=== PATIENT | male | born 1950 | race Caucasian/White ===

== ENCOUNTER → 2023-12-02 09:10 | Outpatient (REF) | payer MEDICARE, OTHER, SELFPAY | LOC: WOUND 09:10 | PROVIDERS: ATTENDING PHYSICIAN Surgery; REFERRING PHYSICIAN Internal Medicine | DX: I87.312 Chronic venous hypertension (idiopathic) with ulcer of left lower extremity (principal); L97.821 Non-pressure chronic ulcer of other part of left lower leg limited to breakdown of skin; L97.321 Non-pressure chronic ulcer of left ankle limited to breakdown of skin; I87.2 Venous insufficiency (chronic) (peripheral); I73.9 Peripheral vascular disease, unspecified; N18.32 Chronic kidney disease, stage 3b | CPT/HCPCS: 99204 ==

== ENCOUNTER → 2023-12-05 07:05 | Outpatient (REF) | payer MEDICARE, OTHER, SELFPAY ==
[2023-12-05 08:40] LABS: Albumin 3.1 g/dl (3.5-5.0); Blood Urea Nitrogen 28 mg/dl (9-20); Calcium 8.8 mg/dl (8.4-10.2); Carbon Dioxide 20 mmol/L (22-30); Chloride 107 mmol/L (98-107); Glucose 83 mg/dl (70-99); Phosphorus 4.7 mg/dl (2.5-4.5); Potassium 4.8 mmol/L (3.5-5.1); Sodium 137 mmol/L (135-145); eGFR 49.47
== END ==
LOC: REG 07:05
PROVIDERS: ATTENDING PHYSICIAN Internal Medicine
DX: N18.9 Chronic kidney disease, unspecified (principal)
CPT/HCPCS: 36415; 80069

== ENCOUNTER → 2023-12-09 13:35 | Outpatient (REF) | payer MEDICARE, OTHER, SELFPAY | LOC: WOUND 13:35 | PROVIDERS: ATTENDING PHYSICIAN Surgery; REFERRING PHYSICIAN Internal Medicine | DX: I87.312 Chronic venous hypertension (idiopathic) with ulcer of left lower extremity (principal); L97.821 Non-pressure chronic ulcer of other part of left lower leg limited to breakdown of skin; L97.321 Non-pressure chronic ulcer of left ankle limited to breakdown of skin; L03.116 Cellulitis of left lower limb; I87.2 Venous insufficiency (chronic) (peripheral); I73.9 Peripheral vascular disease, unspecified; N18.32 Chronic kidney disease, stage 3b; I12.9 Hypertensive chronic kidney disease with stage 1 through stage 4 chronic kidney disease, or unspecified chronic kidney disease | CPT/HCPCS: 99213 ==

== ENCOUNTER → 2023-12-15 14:01 | Outpatient (REF) | payer MEDICARE, OTHER, SELFPAY | LOC: WOUND 14:01 | PROVIDERS: ATTENDING PHYSICIAN Surgery; FAMILY PHYSICIAN Internal Medicine | DX: I87.312 Chronic venous hypertension (idiopathic) with ulcer of left lower extremity (principal); L97.821 Non-pressure chronic ulcer of other part of left lower leg limited to breakdown of skin; L97.321 Non-pressure chronic ulcer of left ankle limited to breakdown of skin; L03.116 Cellulitis of left lower limb; I87.2 Venous insufficiency (chronic) (peripheral); I73.9 Peripheral vascular disease, unspecified; N18.32 Chronic kidney disease, stage 3b | CPT/HCPCS: 99212; 99213 ==

== ENCOUNTER → 2023-12-22 10:30 | Outpatient (REF) | payer MEDICARE, OTHER, SELFPAY | LOC: WOUND 10:30 | PROVIDERS: ATTENDING PHYSICIAN Surgery; FAMILY PHYSICIAN Internal Medicine | DX: I87.312 Chronic venous hypertension (idiopathic) with ulcer of left lower extremity (principal); L97.821 Non-pressure chronic ulcer of other part of left lower leg limited to breakdown of skin; L97.321 Non-pressure chronic ulcer of left ankle limited to breakdown of skin; L03.116 Cellulitis of left lower limb; I87.2 Venous insufficiency (chronic) (peripheral); I73.9 Peripheral vascular disease, unspecified; N18.32 Chronic kidney disease, stage 3b | CPT/HCPCS: 99212 ==

== ENCOUNTER → 2024-01-25 12:53 | Outpatient (REF) | payer MEDICARE, OTHER, SELFPAY | LOC: RAD 12:53 | PROVIDERS: ATTENDING PHYSICIAN Surgery; FAMILY PHYSICIAN Internal Medicine | DX: I87.312 Chronic venous hypertension (idiopathic) with ulcer of left lower extremity (principal); I87.2 Venous insufficiency (chronic) (peripheral); I73.9 Peripheral vascular disease, unspecified | CPT/HCPCS: 93922; 93925; 93970 ==

== ENCOUNTER 2024-02-08 15:41 | Emergency (ER) | payer MEDICARE, OTHER, SELFPAY ==
[2024-02-08 15:49] VITALS: BP 113/73
--- NOTE | 2024-02-08 16:07 | ED.GENMED ---
History of Present Illness
General
Chief Complaint: Urinary Symptoms
Source: patient
Exam Limitations: none
Nursing documentation reviewed up to this point in time: agreed with
Travel History
Have you had any contact with someone who has COVID-19?: No
Do you have any symptoms of coronavirus? Fever > 100 degrees, chills, cough, shortness of breath, sore throat, loss of taste or smell, muscle aches, or headache?: No
History of Present Illness
History of Present Illness:
73 yo male w h/o kidney stones, HTN, GERD, Stage 3 CKD, appendectomy, hernia repair, cholecystectomy, choledochoduodenostomy presents stating at 9 a.m. he noted mild burning in tip of penis with urination, has gotten progressively worse throughout
the day, now 8/10 with intermittent spasms. Denies f/c/n/v/d/c. States it feels exactly like his previous kidney stones.
Past History
Past History
ED Past Medical History: GERD, HTN, NIDDM, Other (Sleep apnea) and Other (Hyperaldosterone)
ED Past Surgical History: Cholecystectomy and Orthopedic
Social History
Tobacco: Non-smoker
Alcohol: None
Drug: None
Personal:
Living: with family
Employment: Retired
Review of Systems
Review of Systems
Allergies reviewed?: Yes
All Other Systems: ROS reviewed and negative except as documented in HPI and ROS
Constitutional: Denies fever or chills
Respiratory: Denies trouble breathing
Cardiac: Denies chest pain
ABD/GI: Reports abdominal pain (suprapubic area); Denies nausea or vomiting
: Reports dysuria, difficulty voiding and dark urine; Denies flank pain
Musculoskeletal: Reports other (exacerbation of chronic right shoulder pain, took Prednisone yesterday and today)
Skin: Reports no symptoms
Neurological: Reports no symptoms
Phy Exam
Physical Exam
Physical Exam:
GENERAL: No acute distress. A&Ox3.
CONSTITUTIONAL: Afebrile.
EYES: clear, conjunctivae normal
ENMT: moist mucus membranes
RESPIRATORY: Regular respirations, nonlabored, lungs clear.
CARDIOVASCULAR: Regular rate and rhythm, no murmurs, no rubs.
GI: Obese, Soft, suprapubic tenderness, normal BS
MUSCULOSKELETAL: Moves with ease. Well perfused.
SKIN: Warm, dry, pink
PSYCH: Normal mood and affect. Well kept, interactive and appropriate
NEUROLOGIC: Awake, alert and oriented. No focal neurological deficits
Course
Orders/Labs/Results
Orders:
Orders
02/08/24 15:59
Urinalysis Reflex To Culture Urgent
Date Specimen was Collected: 02/08/24
Time Specimen was Collected: 15:53
Urine Microscopic Reflex Cult Urgent
02/08/24 16:05
HYDROmorphone [Dilaudid] 1 mg IV NOW STA
Ondansetron Injectable [Zofran] 4 mg IV NOW STA
02/08/24 16:07
0.9% Sodium Chloride 1000 ml [Nss] 1,000 ml IV BOLUS
02/08/24 16:20
Complete Blood Count/With Diff Urgent
Comprehensive Metabolic Panel Urgent
02/08/24 17:07
CT Abd/pel Without Iv Or Oral Urgent
Comment:
Reason For Exam: suprapubic and penile pain hx stones
02/08/24 18:41
HYDROmorphone [Dilaudid] 1 mg IV NOW STA
02/08/24 20:07
Ketorolac [Toradol] 15 mg IV NOW STA
02/08/24 21:03
Tramadol HCl [Ultram] 50 mg PO NOW STA
Abnormal Lab Results
02/08/24 02/08/24
15:59 16:20
RBC 3.58 L 10^6/uL
(4.70-6.10)
Hgb 10.9 L g/dL
(13.0-18.0)
Hct 35.1 L %
(39.0-52.0)
MCV 98.0 H fL
(80.0-94.0)
MCHC 31.1 L g/dL
(33.0-37.0)
RDW 15.3 H %
(11.5-14.5)
MPV 10.9 H fL
(7.4-10.4)
Absolute Lymphs (auto) 0.6 L 10^3/uL
(1.2-3.4)
Neutrophils % 88.8 H %
(42.2-75.2)
Lymphocytes % 9.0 L %
(20.5-51.1)
BUN 40 H mg/dl
(9-20)
Creatinine 1.9 H mg/dL
(0.7-1.3)
Glucose 133 H mg/dl
(70-99)
Calcium 10.6 H mg/dl
(8.4-10.2)
Ur Occult Blood Reflex 4+ A
(Negative)
Leukocyte Esterase Rfl Trace A
(Negative)
Urine RBC 70-80 A /HPF
(0-2)
Urine Glucose 2+ A
(Negative)
02/08/24 16:20
02/08/24 16:20
Vital Signs
Initial and Last Documented VS:
Initial Vital Signs
Temp Pulse Resp BP Pulse Ox
98.3 F 76 16 113/73 99
02/08/24 15:49 02/08/24 15:49 02/08/24 15:49 02/08/24 15:49 02/08/24 15:49
Last Documented Vital Signs
Temp Pulse Resp BP Pulse Ox
98.3 F 58 18 128/82 99
02/08/24 15:49 02/08/24 21:14 02/08/24 21:14 02/08/24 21:14 02/08/24 21:14
MDM/Problems Addressed
Differential Diagnosis Includes:
ureteral stone, UTI
MDM/Problems Addressed:
73 yo male w h/o kidney stones, HTN, GERD, Stage 3 CKD, appendectomy, hernia repair, cholecystectomy, choledochoduodenostomy presents stating at 9 a.m. he noted mild burning in tip of penis with urination, has gotten progressively worse throughout
the day, now 8/10 with intermittent spasms. Denies f/c/n/v/d/c. States it feels exactly like his previous kidney stones.
Afebrile
02/08/2024 1708 PM
CBC: No clinically significant abnormality, at his baseline anemia
CMP: At his baseline CKD, IV fluids infusing for BUN of 40
U/A: no sign of infection
Good relief of pain after Dilaudid
02/08/2024 1830 PM
Patient requesting more pain medication
Radiology report read:
There is a 5 mm calcification at the right UVJ, with moderate hydronephrosis and moderate hydroureter.
Innumerable intrarenal renal calcifications bilaterally. No other change in the noncontrast exam of the solid organs.
Diverticulosis. Moderate stool in the colon. No free air or free fluid.
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
02/08/2024 1958 PM
Patient just urinated a 5 mm black stone. He still feels like he has the urgency to urinate but does not feel like he can urinate
Bladder scan showing minimal amount of urine in his bladder
States pain is 6/10 from 10 on arrival.
After pain medication x 3, pt still very uncomfortable, possibly passing another stone?
Plan: Admit for pain management, Urology consult
Hospitalist notifed of admission
02/08/2024 2108 PM
Pt just urinated and passed a small clot and bloody urine and feels 'so much better.' Pain now 01/07. Wants to go home.
Admission cancelled
Rx for Tramadol sent to his pharmacy. He is already taking Tamsulosin.
*Critical Care Note
Total Time (30-74mins, 75-104mins- exclusive of procedures): Not Applicable
ED Attending Note
-
Portions of this chart may have been created with voice recognition software.� Occasional wrong word or��sound alike� substitutions may have occurred due to the inherent limitations of voice recognition software.
Discharge Plan
Departure
Patient Disposition: Home (Routine Discharge)
Date of Disposition: 02/08/24
Time of Disposition: 20:42
Patient with high blood pressure during this ER visit?: No
Condition: Good
Discharge Problem:
Calculus of distal right ureter, Kidney stone
Instructions: Kidney stones in adults
Prescriptions:
New
tramadol 50 mg tablet
50 mg PO Q8H PRN (Reason: Pain) Qty: 10 0RF
No Action
allopurinol 300 MG tablet
300 mg PO QPM
multivitamin Tablet
1 tab PO TID
zinc acetate 50 mg (zinc) Capsule
50 mg PO QPM
aspirin 81 mg Tablet,Delayed Release (Dr/Ec)
81 mg PO QPM
tamsulosin 0.4 mg capsule
0.4 mg PO QPM
calcitriol 0.5 mcg capsule
3 mcg PO BID
Patient Comments:
10/21/2023: Pt states he takes 6 tabs BID 0.5mcg x 6 tabs = 3mcg
ergocalciferol (vitamin D2) 1,250 mcg (50,000 unit) capsule
7,500 mcg PO BID
Patient Comments:
10/21/2023: 1250mcg x 6 tabs = 7500mcg
coenzyme Q10 [Co Q-10] 100 mg Capsule
100 mg PO QPM
Prolia 60 mg/mL Syringe
60 mg SC [id number]
dapagliflozin propanediol [Farxiga] 10 mg tablet
10 mg PO DAILY
Prostate Factor
1 tab PO QPM
prednisone 10 mg tablet
10 mg PO .SEE BELOW
Patient Comments:
02/08/2024: Pt is self tapering his prednisone. 30mg today, 20mg x 2 days, 10mg x 2 days. it prescribed as 10mg PO Daily PRN gout
magnesium 250 mg Tablet
250 mg PO QPM
fluticasone propionate 50 mcg/actuation spray,suspension
1 spray INTRANASAL DAILY PRN (Reason: nasal congestion)
eplerenone [Inspra] 25 mg Tablet
25 mg PO QPM
potassium citrate 99 mg Capsule
99 mg PO MEALS
Referrals:
Matthew Hardy Jr., MD [Active] - Call in 1-3 days for appt
Ryan Gonzalez MD [Family Provider] -
Activity Restrictions/Additional Instructions:
As we discussed, I sent a prescription to your pharmacy for Tramadol to use if needed for pain
Call Dr. Hardy's office tomorrow and ask when you should be seen for follow up. Inform them of your urine if it is still bloody.
Return here for worsening pain, inability to urinate, fever, vomiting or feeling sicker in any way.
Interventions
Interventions:
*Risk Screen - Suicide Last Done: 02/08/24 16:24
*General Assessment Last Done: 02/08/24 16:24
*Neglect/Abuse Screening Last Done: 02/08/24 16:24
ED- Fall Risk Assessment Last Done: 02/08/24 21:18
*ED COVID-19 Vaccine History Last Done: 02/08/24 16:24
*Nursing Disposition Last Done: 02/08/24 21:18
ED-Male Genitourinary Assessment Last Done: 02/08/24 16:22
Discharge Date and Time
Discharge Date/Time: 02/08/24 21:20
Print Language: ANGUILLAN
[2024-02-08] MEDS: DILAUDID 1 MG IV ×2 (16:15→18:52)
[2024-02-08] MEDS: NSS 1000 IV (16:15)
[2024-02-08] MEDS: ZOFRAN 4 MG IV (16:15)
[2024-02-08 16:16] LABS: Urine Albumin Trace (Neg - Trace); Urine Bilirubin Negative (Negative); Urine Character Clear (Clear); Urine Color Yellow; Urine Glucose 2+ (Negative); Urine Ketone Negative (Negative); Urine Leukocyte Trace (Negative); Urine Nitrite Negative (Negative); Urine Occult Blood 4+ (Negative); Urine Urobilinogen Negative (Neg - 1+)
[2024-02-08 16:26] LABS: Urine Amorphous Seen; Urine Mucus Few; Urine Red Blood Cell 70-80 /HPF (0-2); Urine Squamous Cell 0-2 /LPF (Few)
[2024-02-08 16:41] LABS: % Basophils 0.1 % (0-2); % Immature Granulocytes 0.3 % (0-0.5); % Monocytes 1.8 % (1.7-9.3); % Neutrophils 88.8 % (42.2-75.2); Absolute Lymphocytes 0.6 10^3/uL (1.2-3.4); Absolute Monocytes 0.1 10^3/uL (0.1-0.6); Absolute Neutrophils 6.3 10^3/uL (1.4-6.5); Hematocrit 35.1 % (39.0-52.0); Hemoglobin 10.9 g/dL (13.0-18.0); Mean Corp Hgb Conc. 31.1 g/dL (33.0-37.0); Mean Corpuscular Hgb 30.4 pg (27.0-31.0); Mean Platelet Volume 10.9 fL (7.4-10.4); Nucleated Red Blood Cells % 0 % (-); Platelet Count 278 10^3/uL (130-400); Red Blood Cell Count 3.58 10^6/uL (4.70-6.10); Red Cell Dist. Width 15.3 % (11.5-14.5); White Blood Cell Count 7.1 10^3/uL (4.8-10.8)
[2024-02-08 16:58] LABS: ALT (SGPT) 25 U/L (0-50); AST (SGOT) 24 U/L (17-59); Albumin 4.5 g/dl (3.5-5.0); Alkaline Phosphatase 67 U/L (38-126); Blood Urea Nitrogen 40 mg/dl (9-20); Calcium 10.6 mg/dl (8.4-10.2); Carbon Dioxide 22 mmol/L (22-30); Chloride 102 mmol/L (98-107); Glucose 133 mg/dl (70-99); Potassium 4.4 mmol/L (3.5-5.1); Sodium 138 mmol/L (135-145); Total Bilirubin 0.5 mg/dl (0.2-1.3); Total Protein 7.4 g/dl (6.3-8.2); eGFR 37.25
[2024-02-08] MEDS: TORADOL 15 MG IV (20:16)
[2024-02-08] MEDS: ULTRAM 50 MG PO (21:08)
[2024-02-08 21:14] VITALS: BP 128/82
== END 2024-02-08 21:20 | disposition home or self-care (01) ==
LOC: EMR 15:41
PROVIDERS: EMERGENCY PHYSICIAN Emergency Medicine; FAMILY PHYSICIAN Internal Medicine
DX: N13.2 Hydronephrosis with renal and ureteral calculous obstruction (principal); I12.9 Hypertensive chronic kidney disease with stage 1 through stage 4 chronic kidney disease, or unspecified chronic kidney disease; N18.4 Chronic kidney disease, stage 4 (severe); K21.9 Gastro-esophageal reflux disease without esophagitis; Z87.442 Personal history of urinary calculi
CPT/HCPCS: 99284; 96374; 96375 ×2; 96361; 96376; 74176; 80053; 81003; 81015; 85025

== ENCOUNTER → 2024-02-13 18:57 | Outpatient (REF) | payer MEDICARE, OTHER, SELFPAY ==
[2024-02-18 09:22] LABS: Stone Analysis Mass 13 mg
== END ==
LOC: CLAB 18:57
PROVIDERS: ATTENDING PHYSICIAN Specialist
DX: N20.0 Calculus of kidney (principal)
CPT/HCPCS: 82365

== ENCOUNTER → 2024-04-11 06:54 | Outpatient (REF) | payer MEDICARE, OTHER, SELFPAY ==
[2024-04-11 08:19] LABS: % Basophils 0.5 % (0-2); % Eosinophils 2.2 % (0-6); % Immature Granulocytes 0.2 % (0-0.5); % Lymphocytes 27.9 % (20.5-51.1); % Neutrophils 59.2 % (42.2-75.2); Absolute Eosinophils 0.1 10^3/uL (0-0.7); Absolute Lymphocytes 1.7 10^3/uL (1.2-3.4); Absolute Monocytes 0.6 10^3/uL (0.1-0.6); Absolute Neutrophils 3.5 10^3/uL (1.4-6.5); Hematocrit 31.3 % (39.0-52.0); Mean Corp Hgb Conc. 31.9 g/dL (33.0-37.0); Mean Corpuscular Volume 103.3 fL (80.0-94.0); Mean Platelet Volume 10.6 fL (7.4-10.4); Nucleated Red Blood Cells % 0 % (-); Platelet Count 203 10^3/uL (130-400); Red Blood Cell Count 3.03 10^6/uL (4.70-6.10); Red Cell Dist. Width 14.6 % (11.5-14.5); White Blood Cell Count 5.9 10^3/uL (4.8-10.8)
[2024-04-11 08:33] LABS: Blood Urea Nitrogen 32 mg/dl (9-20); Calcium 10.8 mg/dl (8.4-10.2); Carbon Dioxide 25 mmol/L (22-30); Chloride 99 mmol/L (98-107); Glucose 88 mg/dl (70-99); HDL Cholesterol 35 mg/dl; Iron 53 ug/dl (49-181); LDL Cholesterol, Calculated 47 mg/dl; Potassium 4.3 mmol/L (3.5-5.1); Sodium 134 mmol/L (135-145); Total Cholesterol 117 mg/dl (50-199); Triglyceride 178 mg/dl (10-149); Very Low Density Lipoprotein 35 mg/dl (0-30); eGFR 39.75
[2024-04-11 08:42] LABS: Percent Saturation 20 % (20-50); Total Iron Binding Capacity 258 ug/dl (261-462)
[2024-04-11 10:20] LABS: Vitamin D, 25-OH*** 42.8 ng/mL (30-80)
[2024-04-11 11:09] LABS: Vitamin B12 > 1000 pg/ml (239-931)
[2024-04-11 17:24] LABS: Folate > 20.0 ng/ml (2.76-20)
[2024-04-12 14:42] LABS: Intact PTH 4.9 pg/ml (13.6-85.8)
[2024-04-13 13:48] LABS: Zinc 77.2 ug/dL (60.0-120.0)
[2024-04-13 22:06] LABS: Gamma-Tocopherol <0.2 mg/L (0.0-6.0); Retinyl Palmitate <0.02 mg/L (0.00-0.10); Vitamin A (Retinol) 0.55 mg/L (0.30-1.20); Xitamin A Interpretation Normal
== END ==
LOC: REG 06:54
PROVIDERS: ATTENDING PHYSICIAN Nurse Practitioner Acute Care; FAMILY PHYSICIAN Internal Medicine; OTHER PHYSICIAN Nurse Practitioner; REFERRING PHYSICIAN Specialist
DX: N18.30 Chronic kidney disease, stage 3 unspecified (principal); N20.0 Calculus of kidney; N25.81 Secondary hyperparathyroidism of renal origin; D50.9 Iron deficiency anemia, unspecified; D63.1 Anemia in chronic kidney disease; E64.8 Sequelae of other nutritional deficiencies; E53.8 Deficiency of other specified B group vitamins; E50.9 Vitamin A deficiency, unspecified; I15.9 Secondary hypertension, unspecified; D50.8 Other iron deficiency anemias; K90.49 Malabsorption due to intolerance, not elsewhere classified; M81.0 Age-related osteoporosis without current pathological fracture; N18.32 Chronic kidney disease, stage 3b; E55.9 Vitamin D deficiency, unspecified
CPT/HCPCS: 36415; 80048; 80061; 82306; 82607; 82728; 82746; 83540; 83550; 83735; 83970; 84100; 84425; 84446; 84590; 84630; 85025

== ENCOUNTER → 2024-05-23 06:37 | Outpatient (REF) | payer MEDICARE, OTHER, SELFPAY | LOC: REG 06:37 | PROVIDERS: ATTENDING PHYSICIAN Physician Assistant; FAMILY PHYSICIAN Internal Medicine | DX: R19.7 Diarrhea, unspecified (principal); K90.9 Intestinal malabsorption, unspecified | CPT/HCPCS: 36415; 87045; 87046; 87177; 87209; 87324; 87328; 87329; 87427; 87449 ==

== ENCOUNTER → 2024-05-23 07:26 | Outpatient (REF) | payer MEDICARE, OTHER, SELFPAY | LOC: MRI 07:26 | PROVIDERS: ATTENDING PHYSICIAN Orthopaedic Surgery Hand Surgery; FAMILY PHYSICIAN Internal Medicine | DX: M75.42 Impingement syndrome of left shoulder (principal); S46.012A Strain of muscle(s) and tendon(s) of the rotator cuff of left shoulder, initial encounter | CPT/HCPCS: 73223; A9575 ==

== ENCOUNTER → 2024-06-18 09:06 | Outpatient (REF) | payer MEDICARE, OTHER, SELFPAY ==
[2024-06-18 10:06] LABS: Ionized Calcium 1.09 mMOL/L (1.15-1.33)
[2024-06-18 11:05] LABS: Vitamin D, 25-OH*** 42.1 ng/mL (30-80)
[2024-06-18 11:10] LABS: Calcium 8.2 mg/dl (8.4-10.2); Iron 26 ug/dl (49-181); Phosphorus 3.6 mg/dl (2.5-4.5)
[2024-06-18 11:18] LABS: Percent Saturation 12 % (20-50); Total Iron Binding Capacity 202 ug/dl (261-462)
[2024-06-18 11:25] LABS: Urine Protein 27 mg/dl
[2024-06-18 11:47] LABS: Protein/creatinine Ratio 0.6
[2024-06-18 12:14] LABS: Ferritin 85.9 ng/ml (17.9-464.0)
[2024-06-18 12:46] LABS: Folate 14.7 ng/ml (2.76-20); Vitamin B12 > 1000 pg/ml (239-931)
== END ==
LOC: REG 09:06
PROVIDERS: ATTENDING PHYSICIAN Nurse Practitioner Acute Care; FAMILY PHYSICIAN Internal Medicine; OTHER PHYSICIAN Internal Medicine Endocrinology, Diabetes & Metabolism; OTHER PHYSICIAN Specialist
DX: D50.9 Iron deficiency anemia, unspecified (principal); D63.1 Anemia in chronic kidney disease; E64.8 Sequelae of other nutritional deficiencies; E53.8 Deficiency of other specified B group vitamins; N18.32 Chronic kidney disease, stage 3b; M81.0 Age-related osteoporosis without current pathological fracture; E55.9 Vitamin D deficiency, unspecified
CPT/HCPCS: 36415; 82306; 82330; 82570; 82607; 82728; 82746; 83540; 83550; 83970; 84100; 84156

== ENCOUNTER → 2024-07-05 06:28 | Day surgery (SDC) | payer MEDICARE, OTHER, SELFPAY ==
[2024-06-18 09:53] VITALS: BMI 31.5
[2024-06-18 10:20] LABS: Hematocrit 30.2 % (39.0-52.0); Hemoglobin 9.7 g/dL (13.0-18.0); Mean Corp Hgb Conc. 32.1 g/dL (33.0-37.0); Mean Corpuscular Hgb 33.1 pg (27.0-31.0); Mean Corpuscular Volume 103.1 fL (80.0-94.0); Mean Platelet Volume 10.8 fL (7.4-10.4); Platelet Count 192 10^3/uL (130-400); Red Blood Cell Count 2.93 10^6/uL (4.70-6.10); Red Cell Dist. Width 15.5 % (11.5-14.5); White Blood Cell Count 5.2 10^3/uL (4.8-10.8)
[2024-06-18 11:18] LABS: ALT (SGPT) 29 U/L (0-50); AST (SGOT) 25 U/L (17-59); Albumin 3.5 g/dl (3.5-5.0); Alkaline Phosphatase 68 U/L (38-126); Blood Urea Nitrogen 25 mg/dl (9-20); Calcium 8.2 mg/dl (8.4-10.2); Carbon Dioxide 19 mmol/L (22-30); Chloride 108 mmol/L (98-107); Estimated Creatinine Clearance 44 ml/min; Glucose 80 mg/dl (70-99); Potassium 4.5 mmol/L (3.5-5.1); Sodium 135 mmol/L (135-145); Total Bilirubin 0.4 mg/dl (0.2-1.3)
[2024-06-18 16:06] LABS: Glycohemoglobin (HgbA1c) 3.8 % (4.0-5.6)
[2024-07-03 13:32] VITALS: BMI 31.5
[2024-07-05] VITALS (14 sets, daily range): BP systolic 79–109; BP diastolic 41–78
[2024-07-05] MEDS: NORMOSOL-R/PLASMALYTE-A 1000 IV (13:25)
[2024-07-05] MEDS: TYLENOL 1000 MG PO (13:59)
[2024-07-05] MEDS: ANCEF 5 IV (19:52)
== END ==
LOC: SDS 06:28
PROVIDERS: ATTENDING PHYSICIAN Orthopaedic Surgery Hand Surgery; FAMILY PHYSICIAN Internal Medicine; OTHER PHYSICIAN Internal Medicine Endocrinology, Diabetes & Metabolism
DX: M19.211 Secondary osteoarthritis, right shoulder (principal)
CPT/HCPCS: 23472; C1776; C1713; 36415; 73020; 80053; 83036; 85027; 86850; 86900; 86901; 87070; 93005

== ENCOUNTER → 2024-07-27 07:54 | Outpatient (REF) | payer MEDICARE, OTHER, SELFPAY | LOC: WOUND 07:54 | PROVIDERS: ATTENDING PHYSICIAN Surgery; FAMILY PHYSICIAN Internal Medicine | DX: L89.159 Pressure ulcer of sacral region, unspecified stage (principal); N18.32 Chronic kidney disease, stage 3b; E83.59 Other disorders of calcium metabolism | CPT/HCPCS: 99213 ==

== ENCOUNTER → 2024-09-17 06:34 | Outpatient (REF) | payer MEDICARE, OTHER, SELFPAY ==
[2024-09-17 07:26] LABS: % Basophils 0.6 % (0-2); % Eosinophils 1.6 % (0-6); % Immature Granulocytes 0.4 % (0-0.5); % Monocytes 11.1 % (1.7-9.3); % Neutrophils 63.3 % (42.2-75.2); Absolute Eosinophils 0.1 10^3/uL (0-0.7); Absolute Lymphocytes 1.6 10^3/uL (1.2-3.4); Absolute Monocytes 0.8 10^3/uL (0.1-0.6); Absolute Neutrophils 4.4 10^3/uL (1.4-6.5); Hematocrit 31.4 % (39.0-52.0); Hemoglobin 9.6 g/dL (13.0-18.0); Mean Corp Hgb Conc. 30.6 g/dL (33.0-37.0); Mean Corpuscular Hgb 31.7 pg (27.0-31.0); Mean Corpuscular Volume 103.6 fL (80.0-94.0); Mean Platelet Volume 10.2 fL (7.4-10.4); Nucleated Red Blood Cells % 0 % (-); Platelet Count 279 10^3/uL (130-400); Red Blood Cell Count 3.03 10^6/uL (4.70-6.10); Red Cell Dist. Width 17.2 % (11.5-14.5); White Blood Cell Count 6.9 10^3/uL (4.8-10.8)
[2024-09-17 07:49] LABS: ALT (SGPT) 35 U/L (0-50); AST (SGOT) 24 U/L (17-59); Albumin 3.7 g/dl (3.5-5.0); Alkaline Phosphatase 75 U/L (38-126); Blood Urea Nitrogen 30 mg/dl (9-20); Calcium 9.5 mg/dl (8.4-10.2); Carbon Dioxide 31 mmol/L (22-30); Chloride 96 mmol/L (98-107); Direct Bilirubin 0.2 mg/dl (0.0-0.4); Glucose 94 mg/dl (70-99); HDL Cholesterol 50 mg/dl; Iron 25 ug/dl (49-181); LDL Cholesterol, Calculated 47 mg/dl; Magnesium 2.3 mg/dl (1.6-2.3); Phosphorus 4.4 mg/dl (2.5-4.5); Potassium 5.4 mmol/L (3.5-5.1); Sodium 136 mmol/L (135-145); Total Bilirubin 0.4 mg/dl (0.2-1.3); Total Cholesterol 125 mg/dl (50-199); Total Protein 6.5 g/dl (6.3-8.2); Triglyceride 142 mg/dl (10-149); Uric Acid 4.7 mg/dl (3.5-8.5); Very Low Density Lipoprotein 28 mg/dl (0-30)
[2024-09-17 08:00] LABS: Percent Saturation 10 % (20-50); Total Iron Binding Capacity 244 ug/dl (261-462)
[2024-09-17 08:03] LABS: Protein/creatinine Ratio 0.9; Urine Protein 19 mg/dl
[2024-09-17 08:07] LABS: Vitamin D, 25-OH*** 30.8 ng/mL (30-80)
[2024-09-17 08:25] LABS: Ferritin 84.2 ng/ml (17.9-464.0)
[2024-09-17 08:56] LABS: Folate > 20.0 ng/ml (2.76-20)
[2024-09-17 10:25] LABS: Vitamin B12 > 1000 pg/ml (239-931)
[2024-09-18 10:18] LABS: Intact PTH 15.5 pg/ml (13.6-85.8)
[2024-09-19 00:30] LABS: Zinc 75.1 ug/dL (60.0-120.0)
[2024-09-19 13:31] LABS: Vitamin B1, Whole Blood 252 nmol/L (70-180)
[2024-09-19 18:34] LABS: Alpha-Tocopherol 6.2 mg/L (5.5-18.0); Gamma-Tocopherol <0.2 mg/L (0.0-6.0); Retinyl Palmitate <0.02 mg/L (0.00-0.10); Vitamin A (Retinol) 0.51 mg/L (0.30-1.20); Xitamin A Interpretation Normal
== END ==
LOC: REG 06:34
PROVIDERS: ATTENDING PHYSICIAN Specialist; FAMILY PHYSICIAN Internal Medicine; OTHER PHYSICIAN Nurse Practitioner; REFERRING PHYSICIAN Internal Medicine Hematology & Oncology
DX: N25.81 Secondary hyperparathyroidism of renal origin (principal); N20.0 Calculus of kidney; I10 Essential (primary) hypertension; D63.1 Anemia in chronic kidney disease; D50.9 Iron deficiency anemia, unspecified; E64.8 Sequelae of other nutritional deficiencies; E53.8 Deficiency of other specified B group vitamins
CPT/HCPCS: 36415; 80053; 80061; 82248; 82306; 82570; 82607; 82728; 82746; 83540; 83550; 83735; 83970; 84100; 84156; 84425; 84446; 84550; 84590; 84630; 85025

== ENCOUNTER 2024-09-18 21:41 | Inpatient (IN) | payer MEDICARE, OTHER, SELFPAY ==
[2024-09-18 17:23] VITALS: BP 152/91
--- NOTE | 2024-09-18 17:40 | ED.GENMED ---
History of Present Illness
General
Chief Complaint: Flank Pain
Source: patient
Exam Limitations: none
Time Seen by Provider: 09/18/24 17:35
Nursing documentation reviewed up to this point in time: agreed with
History of Present Illness
History of Present Illness:
74-year-old male with history of HTN, GERD, kidney stones, stage III kidney disease, anemia iron deficient, presents stating yesterday he noticed a decrease in his urine flow then about 3 hours ago he noticed he was urinating small amounts every 15
to 20 minutes and then developed significant pain in the base of his penis. He presents with 8/10 pain. Denies abdominal or flank pains. Denies N/V. Denies F/C.
Past History
Past History
ED Past Medical History: GERD, HTN, NIDDM, Other (Sleep apnea) and Other (Hyperaldosteronism)
ED Past Surgical History: Appendectomy, Cholecystectomy, Orthopedic and Urological (multiple renal calculi extreactions)
Social History
Tobacco: Non-smoker
Alcohol: None
Drug: None
Personal:
Living: with family
Employment: Retired
Review of Systems
Review of Systems
Allergies reviewed?: Yes
All Other Systems: ROS reviewed and negative except as documented in HPI and ROS
Constitutional: Denies fever or chills
Respiratory: Denies trouble breathing
Cardiac: Denies chest pain
ABD/GI: Denies abdominal pain, nausea, vomiting or diarrhea
: Reports dysuria, frequency and difficulty voiding; Denies flank pain or bleeding
Musculoskeletal: Denies edema
Skin: Reports no symptoms
Neurological: Reports no symptoms
Phy Exam
Physical Exam
Physical Exam:
GENERAL: Mild distress due to paindistress. A&Ox3.
CONSTITUTIONAL: Afebrile.
EYES: clear, conjunctivae normal
ENMT: moist mucus membranes, Pharynx nl
RESPIRATORY: Regular respirations, nonlabored, lungs clear.
CARDIOVASCULAR: Regular rate and rhythm, no murmurs, no rubs.
GI: Soft, nontender, normal BS, flanks non tender
: Normal external genitalia, penis, testicles non tender. Very tender to deep palpation over right mons pubis, non tender over left mons
MUSCULOSKELETAL: Moves with ease. Well perfused.
SKIN: Warm, dry, pink
PSYCH: Anxious mood and affect. Well kept, interactive and appropriate
NEUROLOGIC: Awake, alert and oriented. No focal neurological deficits
Course
Orders/Labs/Results
Orders:
Orders
09/18/24 17:43
HYDROmorphone [Dilaudid] 1 mg IV NOW STA
09/18/24 17:44
Ondansetron Injectable [Zofran] 4 mg IV NOW STA
09/18/24 17:49
CT Abd/pel Without Iv Or Oral Urgent
Comment:
Reason For Exam: hx kidney stones, pain distal penis, decreased geena
09/18/24 17:51
Complete Blood Count/With Diff Urgent
Comprehensive Metabolic Panel Urgent
Urinalysis Reflex To Culture Urgent
Date Specimen was Collected: 09/18/24
Time Specimen was Collected: 17:39
Urine Microscopic Reflex Cult Urgent
09/18/24 18:40
HYDROmorphone [Dilaudid] 1 mg IV NOW STA
09/18/24 20:46
HYDROmorphone [Dilaudid] 1 mg IV NOW STA
09/18/24 21:03
UROLOGY CONSULT Urgent
Consulting Provider: Soham Abad
Was physician already notified: Yes
Comment: obstructive uropathy with R ureteral stone
09/18/24 21:23
0.9% Sodium Chloride 1000 ml [Nss] 1,000 ml IV BOLUS
09/18/24 21:30
Admit/Transfer Patient As Directed
Co-Sign Provider:
Level of Care: Inpatient admission
Assign to:: Medical/Surgical
Physician / Group: Jas
Diagnosis: Obstructive Kidney Stone; ASHLEY
Reason for Hospitalization: IVFs, Urology consult
Expected length of stay greater than two midnights?: Yes
ELOS- Estimated Length of Stay in days: 3
I certify the patient meets the requirements for IP care: Yes
PRN Pain Medication Management As Directed
May give lesser potent ordered pain med per pt: Yes
preference::
Protocol:: Medication orders for pain may be administered in a
manner that supports deferring to patient preference
when the pt is:
- Requesting an ordered lesser potent pain medication.
Least to most potent pain medications are defined
as: acetaminophen < NSAID < tramadol < opioids
(morphine, oxycodone, hydromorphone).
- Requesting a lesser dose of the same medication IF
ORDERED.
- Requesting a less intrusive route of administration
if both routes are prescribed by the provider (PO <
IV).
09/18/24 21:32
Code Status As Directed
Resuscitation Status: Full Code
09/18/24 21:35
Strain Urine As Directed
Abnormal Lab Results
09/18/24
17:51
RBC 2.83 L 10^6/uL
(4.70-6.10)
Hgb 8.8 L g/dL
(13.0-18.0)
Hct 28.1 L %
(39.0-52.0)
MCV 99.3 H fL
(80.0-94.0)
MCH 31.1 H pg
(27.0-31.0)
MCHC 31.3 L g/dL
(33.0-37.0)
RDW 16.9 H %
(11.5-14.5)
Absolute Monos (auto) 0.9 H 10^3/uL
(0.1-0.6)
Lymphocytes % 15.3 L %
(20.5-51.1)
Monocytes % 11.2 H %
(1.7-9.3)
Potassium 5.3 H mmol/L
(3.5-5.1)
BUN 46 H mg/dl
(9-20)
Creatinine 2.3 H mg/dL
(0.7-1.3)
Ur Occult Blood Reflex 4+ A
(Negative)
Urine RBC 70-80 A /HPF
(0-2)
Urine Glucose 1+ A
(Negative)
09/18/24 17:51
09/18/24 17:51
Vital Signs
Initial and Last Documented VS:
Initial Vital Signs
Temp Pulse Resp BP Pulse Ox
98.2 F 77 18 152/91 100
09/18/24 17:23 09/18/24 17:23 09/18/24 17:23 09/18/24 17:23 09/18/24 17:23
Last Documented Vital Signs
Temp Pulse Resp BP Pulse Ox
98.2 F 83 14 124/67 96
09/18/24 17:23 09/18/24 22:00 09/18/24 22:00 09/18/24 22:00 09/18/24 22:00
MDM/Problems Addressed
Differential Diagnosis Includes:
Ureteral stone, urethral stone
MDM/Problems Addressed:
74-year-old male with history of HTN, GERD, kidney stones, stage III kidney disease, anemia iron deficient, presents stating yesterday he noticed a decrease in his urine flow then about 3 hours ago he noticed he was urinating small amounts every 15
to 20 minutes and then developed significant pain in the base of his penis. He presents with 8/10 pain. Denies abdominal or flank pains. Denies N/V. Denies F/C.
Afebrile, mild distress due to pain
6:30 p.m.
CBC: Hgb 8.8
CMP BUN/Creat 46/2.3
U/A: 4+ blood, 70-80 RBC no sign of infection
Pain /10 now
Pain med #[address]/pelvis plain, radiology report read: IMPRESSION:
Obstructive uropathy secondary to 5 mm and 4 mm calculi in the distal right ureter at the ureterovesicular junction causing moderate right hydronephrosis. Large number of bilateral intrarenal calculi.
8:45 p.m.
Pt requesting more pain medication. Can't take Toradol due to kidney disease, had needed multiple doses of Dilaudid in the past
After 3 doses Dilaudid, still in significant pain, he took double dose of his Flomax earlier today, worsening kidney function,
Plan: Admit: intractable pain, acute on chronic renal insufficiency, obstructive uropathy with distal R ureteral stones
Hospitalist notified of admission
Urology Dr. Abad notified, Urology consult in
Chronic conditions affecting care: HTN and Kidney disease
*Critical Care Note
Total Time (30-74mins, 75-104mins- exclusive of procedures): Not Applicable
ED Attending Note
-
Portions of this chart may have been created with voice recognition software.� Occasional wrong word or��sound alike� substitutions may have occurred due to the inherent limitations of voice recognition software.
Discharge Plan
Departure
Patient Disposition: Admit
Date of Disposition: 09/18/24
Time of Disposition: 20:58
Admit to: Med/Surg
Presentation/result/management discussed w/ accepting MD/DO: Hospitalist
Condition: Fair
Discharge Problem:
Calculus of distal right ureter, Lower obstructive uropathy, Intractable pain, Acute on chronic renal insufficiency
Interventions
Interventions:
*ED COVID-19 Vaccine History Last Done: 09/18/24 17:23
[id number]-[id number] Assessment Last Done: 09/18/24 18:00
ED-Male Genitourinary Assessment Last Done: 09/18/24 18:00
[2024-09-18] MEDS: DILAUDID 1 MG IV ×3 (17:53→20:49)
[2024-09-18] MEDS: ZOFRAN 4 MG IV (17:53)
[2024-09-18 18:02] LABS: Urine Albumin Trace (Neg - Trace); Urine Bilirubin Negative (Negative); Urine Character Clear (Clear); Urine Color Straw; Urine Glucose 1+ (Negative); Urine Ketone Negative (Negative); Urine Leukocyte Negative (Negative); Urine Nitrite Negative (Negative); Urine Occult Blood 4+ (Negative); Urine Urobilinogen Negative (Neg - 1+)
[2024-09-18 18:09] LABS: % Basophils 0.4 % (0-2); % Eosinophils 0.9 % (0-6); % Immature Granulocytes 0.4 % (0-0.5); % Lymphocytes 15.3 % (20.5-51.1); % Monocytes 11.2 % (1.7-9.3); % Neutrophils 71.8 % (42.2-75.2); Absolute Eosinophils 0.1 10^3/uL (0-0.7); Absolute Lymphocytes 1.2 10^3/uL (1.2-3.4); Absolute Monocytes 0.9 10^3/uL (0.1-0.6); Absolute Neutrophils 5.5 10^3/uL (1.4-6.5); Hematocrit 28.1 % (39.0-52.0); Hemoglobin 8.8 g/dL (13.0-18.0); Mean Corp Hgb Conc. 31.3 g/dL (33.0-37.0); Mean Corpuscular Hgb 31.1 pg (27.0-31.0); Mean Corpuscular Volume 99.3 fL (80.0-94.0); Mean Platelet Volume 10.4 fL (7.4-10.4); Nucleated Red Blood Cells % 0 % (-); Platelet Count 254 10^3/uL (130-400); Red Blood Cell Count 2.83 10^6/uL (4.70-6.10); Red Cell Dist. Width 16.9 % (11.5-14.5); White Blood Cell Count 7.7 10^3/uL (4.8-10.8)
[2024-09-18 18:11] LABS: ALT (SGPT) 28 U/L (0-50); AST (SGOT) 22 U/L (17-59); Albumin 3.6 g/dl (3.5-5.0); Alkaline Phosphatase 61 U/L (38-126); Blood Urea Nitrogen 46 mg/dl (9-20); Calcium 9.2 mg/dl (8.4-10.2); Carbon Dioxide 27 mmol/L (22-30); Chloride 103 mmol/L (98-107); Glucose 97 mg/dl (70-99); Potassium 5.3 mmol/L (3.5-5.1); Sodium 141 mmol/L (135-145); Total Bilirubin 0.7 mg/dl (0.2-1.3); Total Protein 6.3 g/dl (6.3-8.2); eGFR 29.43
[2024-09-18 18:17] LABS: Urine Red Blood Cell 70-80 /HPF (0-2); Urine White Cell 0-2 /HPF (0-5)
[2024-09-18 20:53] VITALS: BP 118/77
[2024-09-18 21:00] VITALS: BP 128/73
[2024-09-18] MEDS: NSS 1000 IV ×2 (21:26→23:08)
--- NOTE | 2024-09-18 21:34 | HPS.HSE ---
Addendum entered and electronically signed by Oli Mark DO 09/18/24 23:07:
Patient seen and examined independently. Agree with findings and plan as set forth by Roxana Guerrero PA-C.
Patient is a 74y M with PMH significant for nephrolithiasis / calcium oxalate stones, prior bariatric surgery, CKD and hyperaldosteronism who presents to ED complaining of difficulty urinating and pain at the base of his penis. Symptoms are
identical to those he has had with prior kidney stones. He believes this is his 7th such episode and notes that he has always passed the stones spontaneously in the past. No N/V, fevers / chills or other acute complaints.
Ass:
Nephrolithiasis
Right Ureteral Obstruction / [place] secondary to the above
ASHLEY on CKD III secondary to the above
Hyperkalemia
Hyperaldosteronism
s/p Bariatric Surgery
Plan:
Admit for further evaluation and treatment.
NPO, IVFs, pain control.
Flomax BID and strain urine.
Urology evaluation for additional recommendation s/ possible ureteroscopy if needed.
Follow for return to baseline renal function with alleviation of obstruction.
Hold diuretics / potassium, etc.
Original Note:
Family Physician
-
Family Physician: Ryan Gonzalez
Chief Complaint
-
Difficulty urinating, kidney stone pain
History of Present Illness
Patient is a 74 y/o male past medical history of hyperaldosteronism, chronic kidney disease, BPH and prior kidney stones who presents with difficulty urinating. Patient reports symptoms began yesterday and worsened today prompting him to come to
the emergency department for evaluation. He reports pain at the base of his penis towards the right side which is common for his kidney stone pain. He reports many stones in the past, but has never required surgical intervention. He denies
fevers, sweats or chills.
Medical History
Past Medical History
Past Medical History: Reports Other
Additional Past Medical History:
Hyperaldosteronism
Hyperparathyroidism
CKD Stage III
Obstructive Sleep Apnea
BPH
Nephrolithiasis
Past Surgical History: Reports Other
Additional Past Surgical History:
Biliopancreatic Diversion with Duodenal Switch
Choledochoduodenostomy
Umbilical Hernia Repair
Right Reverse Total Shoulder Replacement
Left Rotator Cuff Repair
Left Distal Radius ORIF
Bilateral Carpal Tunnel Release
Left Trigger Finger Release
Cervical Fusion
Social History
Tobacco: Former Smoker (Quit in 1986)
Alcohol: Other (Very Rare)
Drug: None
Personal:
Living: With Family
Family History
Family History: Not pertinent
Allergies / Home Medications
Allergies reflects when Allergies were last updated in [employer].
Home Medications with original date entered in [employer]
Allergy/Medication List:
Allergies
Allergy/AdvReac Type Severity Reaction Status Date / Time
gluten Allergy diarrhea Verified 09/18/24 17:28
and chills
thiopental Allergy Agitation Verified 09/18/24 17:28
NSAIDS (Non-Steroidal AdvReac KIDNEY Verified 09/18/24 17:28
Anti-Inflamma DISEASE
Home Medications
allopurinol 300 mg tablet 300 mg PO QPM Gout 05/12/09
Prostate Factor 1 tab PO QPM Supplement 10/21/23
aspirin 81 mg tablet,delayed release 81 mg PO QPM Blood Clot Prevention/Tx 10/21/23
calcitriol 0.5 mcg capsule 2 mcg PO BID Kidney Disease 10/21/23
coenzyme Q10 100 mg capsule (Co Q-10) 100 mg PO QPM Supplement 10/21/23
dapagliflozin propanediol 10 mg tablet (Farxiga) 10 mg PO DAILY Kidney Disease 10/21/23
denosumab 60 mg/mL subcutaneous syringe (Prolia) 60 mg SC [id number] osteoporosis 10/21/23
ergocalciferol (vitamin D2) 1,250 mcg (50,000 unit) capsule 7,500 mcg PO BID Supplement 10/21/23
tamsulosin 0.4 mg capsule 0.4 mg PO QPM Urinary Issue 10/21/23
eplerenone 25 mg tablet (Inspra) 25 mg PO Q48H@2000 02/08/24
fluticasone propionate 50 mcg/actuation nasal spray,suspension 1 spray intranasal DAILYPRN PRN nasal congestion 02/08/24
potassium citrate 99 mg capsule 99 mg PO MEALS 02/08/24
prednisone 10 mg tablet 10 mg PO DAILYPRN PRN Gout 02/08/24
calcium carbonate 500 mg PO TID 06/26/24
iron 20 mg PO TID 06/26/24
melatonin 10 mg tablet 10 mg PO HS 06/26/24
mupirocin 2 % topical ointment 1 applic topical BIDPRN PRN nasal 07/05/24
Lactobac no.2-Bifidobac no.1-S. thermo 112.5 billion cell capsule (Visbiome) 1 cap PO DAILY 09/18/24
magnesium oxide 400 mg PO QPM 09/18/24
therapeutic multivitamin 1 tab PO TID 09/18/24
vitamin A palmitate 7,500 mcg (25,000 unit) capsule 7,500 mcg PO HS 09/18/24
zinc sulfate 50 mg zinc (220 mg) tablet 50 mg PO QPM 09/18/24
Review of Systems
-
A 12 point ROS was completed and negative except as noted: Yes
Constitutional: Denies Fever or Chills
Respiratory: Denies Cough or Trouble Breathing
Cardiac: Denies Chest Pain or Palpitations
: Reports See HPI
Physical Exam
Vital Signs
Vital Signs
Temp Pulse Resp BP Pulse Ox
98.2 F 84 15 128/73 97
09/18/24 17:23 09/18/24 21:30 09/18/24 21:30 09/18/24 21:00 09/18/24 21:15
Physical Exam
General: Well Developed, Well Nourished and Pain
HEENT: Anicteric and Moist mucous membranes
Respiratory: Clear and Non Labored Respirations
Cardiac: S1/S2 and Regular Rhythm
GI: Soft and Non Tender
Genito-urinary: No costovertebral tender
Musculoskeletal: No Clubbing and No Cyanosis
Skin: Warm and Dry
Neuro: Awake, Alert, Oriented and Nonfocal/grossly intact
Psych: Calm
Laboratory Results
-
09/18/24 17:51
09/18/24 17:51
Laboratory Results
Total Bilirubin 0.7 mg/dl (0.2-1.3) 09/18/24 17:51
AST 22 U/L (17-59) 09/18/24 17:51
ALT 28 U/L (0-50) 09/18/24 17:51
Alkaline Phosphatase 61 U/L (38-126) 09/18/24 17:51
Data Reviewed
-
CT Scan: Report Reviewed by me
Lab Data: Labs Reviewed by me
Impression/Plan
-
Obstructing Right UVJ Stone
-Consult Urology
-Continue IVFs
-Continue Flomax
-NPO after midnight for likely OR tomorrow
ASHLEY on CKD III
-Hold eplerenone and Farxiga
-Continue IVFs
-Recheck labs in AM
Hyperkalemia
-Hold eplerenone and potassium supplement
-Continue IVFs
-Recheck labs in AM
Hyperaldosteronism
-Eplerenone on hold as above
DVT proph: SC Heparin
Code Status: Full Code
[2024-09-18 22:00] VITALS: BP 124/67
[2024-09-18] MEDS: DILAUDID 0.5 MG IV ×2 (22:28→23:08)
[2024-09-18 22:53] VITALS: BMI 29.9
[2024-09-18 22:54] VITALS: BP 126/75
[2024-09-18] MEDS: MELATONIN 10 MG PO (23:57)
[2024-09-19] VITALS (11 sets, daily range): BP systolic 93–147; BP diastolic 58–81
[2024-09-19] MEDS: DILAUDID 0.5 MG IV ×6 (01:55→12:10)
[2024-09-19] MEDS: ZOFRAN 4 MG IV (02:09)
[2024-09-19 05:44] LABS: Hemoglobin 8.7 g/dL (13.0-18.0); Mean Corp Hgb Conc. 31.1 g/dL (33.0-37.0); Mean Corpuscular Hgb 31.2 pg (27.0-31.0); Mean Corpuscular Volume 100.4 fL (80.0-94.0); Mean Platelet Volume 10.4 fL (7.4-10.4); Platelet Count 225 10^3/uL (130-400); Red Blood Cell Count 2.79 10^6/uL (4.70-6.10); Red Cell Dist. Width 16.5 % (11.5-14.5); White Blood Cell Count 8.2 10^3/uL (4.8-10.8)
[2024-09-19 06:05] LABS: Blood Urea Nitrogen 53 mg/dl (9-20); Calcium 8.7 mg/dl (8.4-10.2); Carbon Dioxide 24 mmol/L (22-30); Chloride 101 mmol/L (98-107); Estimated Creatinine Clearance 26 ml/min; Glucose 88 mg/dl (70-99); Potassium 5.3 mmol/L (3.5-5.1); Sodium 138 mmol/L (135-145); eGFR 26.63
--- NOTE | 2024-09-19 07:43 | CON.MD ---
Consultation - Medical
-
see dictated note
pt admitted with right ureteral stones and colic
reviewed with patient
plan for npo/OR later today for ureteroscopy
risks, benefits, alternatives and disabilities reviewed
--- NOTE | 2024-09-19 08:07 | W.PN.HOSP.TC ---
Today's Communication/Plan
-
N.p.o. for urology procedure
Assessment / Plan
Assessment / Plan
74-year-old male with difficulty urinating and pain in the base of penis
CT abdomen and pelvis-obstructive uropathy secondary to 5 mm and 4 mm calculi in the distal right ureter at the UV junction causing moderate right hydronephrosis. Large number of bilateral intrarenal calculi
CVS: S1-S2 normal
Chest: CTA B/L
Abdomen: Soft, tenderness right side, Bowel sounds present
Extremities: No edema
# Obstructing right UVJ stones
History of multiple renal stone extraction in the past
Microscope hematuria
Continue IV fluids and Flomax
Urology consulted for urgent cystoscopy and stenting -planned for this afternoon
# ASHLEY on CKD stage III
Hold eplerenone and Farxiga
IV fluids and follow labs
# Anemia-check iron studies
# Hyperkalemia-hold eplerenone and potassium supplements continue IV fluids and follow labs
# Hyperaldosteronism/hypertension-hold eplerenone. BP stable.
# Enlarged prostate-continue Flomax
# History of gout-continue allopurinol
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
# Sleep apnea-continue CPAP
# History of cervical fusion
# Ex-smoker
# DVT prophylaxis-subcutaneous heparin stopped for surgery. Now on SCDS
# Full code
Anticipated Discharge: Within 24 hours
Subjective/Interval History
-
Date of Service: September 19, 2024
Objective Data
-
Labs:
Laboratory Results
09/19/24
04:29
WBC 8.2
Hgb 8.7 L
Hct 28.0 L
Plt Count 225
Sodium 138
Potassium 5.3 H
Chloride 101
Carbon Dioxide 24
BUN 53 H
Creatinine 2.5 H
Glucose 88
Calcium 8.7
Vital Signs:
Vital Signs
Temp Pulse Resp BP Pulse Ox
98.4 F 78 17 131/78 96
09/19/24 07:00 09/19/24 07:00 09/19/24 07:00 09/19/24 07:00 09/19/24 07:00
I&O
09/18/24 09/19/24 09/20/24
06:59 06:59 06:59
Intake Total 1280 / 1280
Output Total 800 / 800
Balance 480 / 480
[2024-09-19] MEDS: NSS 1000 IV (09:19)
[2024-09-19 09:57] LABS: Iron 22 ug/dl (49-181)
[2024-09-19 10:06] LABS: Percent Saturation 10 % (20-50); Total Iron Binding Capacity 201 ug/dl (261-462)
[2024-09-19 10:16] LABS: Ferritin 82.3 ng/ml (17.9-464.0)
[2024-09-19 10:30] LABS: Vitamin B12 > 1000 pg/ml (239-931)
--- NOTE | 2024-09-19 15:46 | W.IMMPOSTOP ---
Surgical Immed Post Op Note
-
Surgeon:
Antony
Pre-op Diagnosis:
nephrolithiasis
Post-op Diagnosis:
same
Procedure Performed:
cysto,right ureteroscopy,stone extraction,stent
Anesthesia Type:
gen
Specimen / Cultures:
stone
Estimated Blood Loss:
5ml
Complications:
none
Operative Findings:
large distal stone- extracted
large volume of dense clot in ureter- from mid ureter to distal- very difficult visualization
stent placed
to pacu in stable condition
recheck labs in am- when stable and pain controlled- plan discharge with outpt f/u to review second stage procedure to re-assess ureter and removal of renal stones
--- NOTE | 2024-09-19 15:46 | CM ---
Addendum entered by Rosa Maria Monson 09/19/24 15:55:
DME - CPAP
SNF - [facility] in past
HH - [facility] in past
Original Note:
Met with pt and his at bedside
Pt reports he lives with his in a 2 story home
Independent at baseline, driving
DME - none
SNF/HH - denies past hx
Has ride home at discharge
PCP - Ryan Gonzalez
Pharm - [facility] [address]
Currently N.p.o. for urology procedure
Plan - anticipate home no needs when medically ready
[2024-09-19] MEDS: FLOMAX 0.8 MG PO (17:28)
[2024-09-19] MEDS: Pyridium 100 MG PO ×2 (17:28→23:23)
[2024-09-19] MEDS: MAGNESIUM OXIDE 500 MG PO (17:29)
[2024-09-19] MEDS: OSCAL CAL 500 500 MG PO ×2 (17:29→22:11)
--- NOTE | 2024-09-19 17:38 | PTCARENOTE ---
pt sent to OR at 1420 via bed .
pt returned to Room 2105 via bed from PACU at 1650. pt awake and alert. at bedside, pt denies pain c/o being thirsty.
care ongoing.
[2024-09-19] MEDS: TYLENOL 650 MG PO (22:02)
[2024-09-19] MEDS: MELATONIN 10 MG PO (22:02)
[2024-09-19] MEDS: ROCALTROL 2 MCG PO (22:02)
[2024-09-20] MEDS: NSS 1000 IV ×2 (03:21→20:48)
[2024-09-20] MEDS: NSS IV (03:21)
[2024-09-20 03:27] VITALS: BP 128/77
[2024-09-20 07:53] LABS: Blood Urea Nitrogen 53 mg/dl (9-20); Calcium 8.6 mg/dl (8.4-10.2); Carbon Dioxide 21 mmol/L (22-30); Chloride 103 mmol/L (98-107); Estimated Creatinine Clearance 26 ml/min; Glucose 114 mg/dl (70-99); Sodium 136 mmol/L (135-145); eGFR 26.63
[2024-09-20 08:00] VITALS: BP 109/59
[2024-09-20 08:29] LABS: Hematocrit 26.5 % (39.0-52.0)
--- NOTE | 2024-09-20 09:18 | W.PN.URO.CBU ---
Today's Communication / Plan
-
start ceftin and observe
Assessment / Plan
-
stone
ureteral clot
acute on chronic renal insuff
post op fever
reviewed with pt and hospitalist- preop ua was negative for infx
given fever- will begin ceftin bid and observe
follow wbc and fever curve
follow cr
at some point- will need second stage ureteroscopy to determine source of ureteral clot and remove remaining stone burden
Diagnosis
-
Date of Service: September 20, 2024
-
Patient Diagnosis:
stone
acute on chronic renal insuff
right ureteral clot
post op fever
Post Op Day:
right ureteroscopy/stone extraction and stent 09/19
Subjective
-
pt feels great
mild urinary irritation
eating
cr stable at 2.5
sis have one fever overnight
Objective
-
Vital Signs
Temp Pulse Resp BP Pulse Ox
98.5 F 72 18 109/59 95
09/20/24 08:00 09/20/24 08:00 09/20/24 08:00 09/20/24 08:00 09/20/24 08:00
Intake and Output
09/19/24 09/20/24 09/21/24
06:59 06:59 06:59
Intake Total 1280 / 1280 1905 / 1905
Output Total 800 / 800 2400 / 2400
Balance 480 / 480 -495 / -495
Intake:
Oral fluids 480 / 480 480 / 480
IV fluids (Total) 800 / 800 1425 / 1425
Normosol 225 / 225
Output:
Urine, Voided 800 / 800 2400 / 2400
Other:
Number of approximated MODERATE 2 2
amounts of urine
Laboratory Results
09/20/24 04:50
09/20/24 04:50
Review of Systems
-
Constitutional: Fatigue
Respiratory: No Symptoms
Cardiac: No Symptoms
Abdomen/GI: No Symptoms
: Frequency
Physical Exam
-
General - no acute distress
Abdomen - soft, non-tender
Genitalia - normal
[2024-09-20 09:21] LABS: % Immature Granulocytes 0.2 % (0-0.5); % Lymphocytes 5.1 % (20.5-51.1); % Monocytes 6.1 % (1.7-9.3); % Neutrophils 88.6 % (42.2-75.2); Absolute Lymphocytes 0.4 10^3/uL (1.2-3.4); Absolute Monocytes 0.5 10^3/uL (0.1-0.6); Absolute Neutrophils 7.1 10^3/uL (1.4-6.5); Mean Corp Hgb Conc. 30.5 g/dL (33.0-37.0); Mean Corpuscular Volume 101.6 fL (80.0-94.0); Mean Platelet Volume 10.9 fL (7.4-10.4); Nucleated Red Blood Cells % 0 % (-); Platelet Count 238 10^3/uL (130-400); Red Blood Cell Count 2.58 10^6/uL (4.70-6.10); Red Cell Dist. Width 16.5 % (11.5-14.5)
[2024-09-20] MEDS: OSCAL CAL 500 500 MG PO ×3 (09:30→22:07)
[2024-09-20] MEDS: Pyridium 100 MG PO ×2 (09:30→17:18)
[2024-09-20] MEDS: VISBIOME 1 CAP PO (09:30)
[2024-09-20] MEDS: ROCALTROL 2 MCG PO ×2 (09:33→20:44)
[2024-09-20] MEDS: CEFTIN 250 MG PO ×2 (09:42→20:44)
--- NOTE | 2024-09-20 11:22 | W.PN.HOSP.TC ---
Today's Communication/Plan
-
IVF
Follow labs
IV iron
Agree with AB
Add on urine CX
Assessment / Plan
Assessment / Plan
74-year-old male with difficulty urinating and pain in the base of penis
CT abdomen and pelvis-obstructive uropathy secondary to 5 mm and 4 mm calculi in the distal right ureter at the UV junction causing moderate right hydronephrosis. Large number of bilateral intrarenal calculi
CVS: S1-S2 normal
Chest: CTA B/L
Abdomen: Soft, tenderness right side, Bowel sounds present
Extremities: No edema
# Fever overnight
I do not a urine culture from the sample from 1119
Possibly this is postoperative fever
Started on Ceftin 250 twice daily and watch temperature overnight
# Obstructing right UVJ stones
History of multiple renal stone extraction in the past
Microscope hematuria
Continue IV fluids and Flomax
Status post cystoscopy and stone extraction by Dr. Hardy on 09/19/2024. Patient also had large volume dense clots in the ureter with difficult visualization. Stent was placed.
# ASHLEY on CKD stage III
Hold eplerenone and Farxiga
IV fluids and follow labs
# Anemia-iron deficiency noted. will give IV since pt take PO iron and probably not well absorbed. he is agreeable. Has see in the past and had infusion.
# Hyperkalemia-hold eplerenone and potassium supplements continue IV fluids and follow labs
# Hyperaldosteronism/hypertension-Hold eplerenone. BP stable.
# Enlarged prostate-continue Flomax
# History of gout-continue allopurinol
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
# Sleep apnea-continue CPAP
# History of cervical fusion
# Ex-smoker
# DVT prophylaxis-subcutaneous heparin stopped for surgery. Now on SCDS
# Full code
D/W Urology
D/W at bed side
Anticipated Discharge: Within 24 hours
Subjective/Interval History
-
Date of Service: September 20, 2024
Objective Data
-
Labs:
Laboratory Results
09/20/24
04:50
WBC 8.0
Hgb 8.0 L
Hct 26.5 L
Plt Count 238
Sodium 136
Potassium 5.0
Chloride 103
Carbon Dioxide 21 L
BUN 53 H
Creatinine 2.5 H
Glucose 114 H
Calcium 8.6
Vital Signs:
Vital Signs
Temp Pulse Resp BP Pulse Ox
98.5 F 72 18 109/59 95
09/20/24 08:00 09/20/24 08:00 09/20/24 08:00 09/20/24 08:00 09/20/24 08:00
I&O
09/19/24 09/20/24 09/21/24
06:59 06:59 06:59
Intake Total 1280 / 1280 1905 / 1905
Output Total 800 / 800 2400 / 2400
Balance 480 / 480 -495 / -495
[2024-09-20] MEDS: METAMUCIL, KONSYL 1 PACKET PO (13:15)
[2024-09-20] MEDS: FERRLECIT 110 MG IV (13:15)
--- NOTE | 2024-09-20 15:15 | CM ---
Chart reviewed
Urology following
IVF's. Following labs. Urine cx sent
IV antibiotics
CM available for discharge needs
Plan - anticipate home no needs
[2024-09-20 16:00] VITALS: BP 128/69
[2024-09-20] MEDS: FLOMAX 0.8 MG PO (17:18)
[2024-09-20] MEDS: ZYLOPRIM 300 MG PO (17:18)
[2024-09-20] MEDS: MAGNESIUM OXIDE 500 MG PO (17:18)
[2024-09-20] MEDS: MELATONIN 10 MG PO (22:07)
[2024-09-20 22:56] VITALS: BP 110/66
[2024-09-21] MEDS: Pyridium 100 MG PO ×2 (00:14→09:22)
[2024-09-21 05:39] LABS: Hematocrit 26.8 % (39.0-52.0)
[2024-09-21 06:03] LABS: Blood Urea Nitrogen 44 mg/dl (9-20); Calcium 8.8 mg/dl (8.4-10.2); Carbon Dioxide 22 mmol/L (22-30); Chloride 106 mmol/L (98-107); Estimated Creatinine Clearance 39 ml/min; Glucose 86 mg/dl (70-99); Potassium 4.2 mmol/L (3.5-5.1); Sodium 140 mmol/L (135-145)
[2024-09-21] MEDS: NSS 1000 IV (06:39)
[2024-09-21 08:02] VITALS: BP 150/83
--- NOTE | 2024-09-21 08:06 | W.PN.URO.CBU ---
Today's Communication / Plan
-
home when medically cleared
Assessment / Plan
-
stone
ureteral clot
acute on chronic renal insuff
post op fever
pt doing well
cleared for discharge urologically with another 5 days of ceftin
reviewed instructions
pt will call for outpt appointment with me after discharge
Diagnosis
-
Date of Service: September 21, 2024
-
Patient Diagnosis:
stone
acute on chronic renal insuff
right ureteral clot
post op fever
Post Op Day:
right ureteroscopy/stone extraction and stent 09/19
Subjective
-
pt feels great
afebrile/nl wbc
cr down to 1.7
Objective
-
Vital Signs
Temp Pulse Resp BP Pulse Ox
98.9 F 76 17 150/83 98
09/21/24 08:02 09/21/24 08:02 09/21/24 08:02 09/21/24 08:02 09/21/24 08:02
Intake and Output
09/20/24 09/21/24 09/22/24
06:59 06:59 06:59
Intake Total 1905 / 1905 2940 / 2940
Output Total 2400 / 2400 3000 / 3000
Balance -495 / -495 -60 / -60
Intake:
Oral fluids 480 / 480 1740 / 1740
IV fluids (Total) 1425 / 1425 1200 / 1200
Normosol 225 / 225
Output:
Urine, Voided 2400 / 2400 3000 / 3000
Other:
Number of approximated MODERATE 2
amounts of urine
Laboratory Results
09/21/24 04:21
09/21/24 04:21
Review of Systems
-
Constitutional: No Symptoms
Respiratory: No Symptoms
Cardiac: No Symptoms
Abdomen/GI: No Symptoms
: Frequency
Physical Exam
-
General - no acute distress
[2024-09-21] MEDS: CEFTIN 250 MG PO (09:21)
[2024-09-21] MEDS: METAMUCIL, KONSYL 1 PACKET PO (09:21)
[2024-09-21] MEDS: VISBIOME 1 CAP PO (09:22)
[2024-09-21] MEDS: ROCALTROL 2 MCG PO (09:22)
[2024-09-21] MEDS: OSCAL CAL 500 500 MG PO (09:22)
--- NOTE | 2024-09-21 10:02 | W.PN.HOSP.TC ---
Today's Communication/Plan
-
Discharge today after IV iron
Pt is aware re anemia
Rpt labs as OP
Assessment / Plan
Assessment / Plan
74-year-old male with difficulty urinating and pain in the base of penis
CT abdomen and pelvis-obstructive uropathy secondary to 5 mm and 4 mm calculi in the distal right ureter at the UV junction causing moderate right hydronephrosis. Large number of bilateral intrarenal calculi
CVS: S1-S2 normal
Chest: CTA B/L
Abdomen: Soft, NT, Bowel sounds present
Extremities: No edema
# Fever overnight 09/19/24
Possibly this is postoperative fever
Started on Ceftin 250 twice daily no mo0re fevers
# Obstructing right UVJ stones
History of multiple renal stone extraction in the past
Microscope hematuria
stop IVF
Status post cystoscopy and stone extraction by Dr. Hardy on 09/19/2024. Patient also had large volume dense clots in the ureter with difficult visualization. Stent was placed.
# ASHLEY on CKD stage III
restart eplerenone and Farxiga as OP
IV fluids and follow labs
# Anemia-iron deficiency noted. will give IV since pt take PO iron and probably not well absorbed. he is agreeable. Has see in the past and had infusion.
# Hyperkalemia-restart eplerenone and potassium supplements continue IV fluids and follow labs
# Hyperaldosteronism/hypertension-Hold eplerenone. BP stable.
# Enlarged prostate-continue Flomax
# History of gout-continue allopurinol
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
# Sleep apnea-continue CPAP
# History of cervical fusion
# Ex-smoker
# DVT prophylaxis-subcutaneous heparin stopped for surgery. Now on SCDS
# Full code
D/W Urology
All follow up care discussed with pt.
Called micro lab- no growth as of now.
More than 30 minutes spent in discharge including
Final examination of the patient
Summarizing hospital stay
Instructions for continuing care to all relevant caregivers
Preparation of discharge records, prescriptions, and referral forms
Total time spent (in minutes): 32 min
Anticipated Discharge: Today
Subjective/Interval History
-
Date of Service: September 21, 2024
Objective Data
-
Labs:
Laboratory Results
09/21/24
04:21
Hgb 8.0 L
Hct 26.8 L
Sodium 140
Potassium 4.2
Chloride 106
Carbon Dioxide 22
BUN 44 H
Creatinine 1.7 H
Glucose 86
Calcium 8.8
Vital Signs:
Vital Signs
Temp Pulse Resp BP Pulse Ox
98.9 F 76 17 150/83 98
09/21/24 08:02 09/21/24 08:02 09/21/24 08:02 09/21/24 08:02 09/21/24 08:02
I&O
09/20/24 09/21/24 09/22/24
06:59 06:59 06:59
Intake Total 1905 / 1905 2940 / 2940
Output Total 2400 / 2400 3000 / 3000
Balance -495 / -495 -60 / -60
--- NOTE | 2024-09-21 10:09 | W.DS.TRANS ---
Addendum entered and electronically signed by Donna Schwartz MD 09/21/24 11:50:
Dictation- [id number]
Original Note:
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
-
Discharge Instructions:
Discharge Diagnosis/Procedures you had a kidney stone and had a right ureteral
stent placed
Acute kidney injury on chronic kidney disease
Anemia-deficiency
Hyperaldosteronism and hypertension
Enlarged prostate
History of gout
Sleep apnea
Diet 2 Gram Sodium
Activity As tolerated
Driving Restrictions As prior to admission
Blood Work cbc,bmp 4 days
Wound Care expect occassional blood in urine, urinary
frequency and some pain with urination
Instructions:
Stand-Alone Forms:
Changes to Home Medications: Yes
Discharge Medications:
DC Medications w/original date entered in [employer]
allopurinol 300 mg tablet 300 mg PO QPM Gout 05/12/09
Prostate Factor 1 tab PO QPM Supplement 10/21/23
aspirin 81 mg tablet,delayed release 81 mg PO QPM Blood Clot Prevention/Tx 10/21/23
calcitriol 0.5 mcg capsule 2 mcg PO BID Kidney Disease 10/21/23
coenzyme Q10 100 mg capsule (Co Q-10) 100 mg PO QPM Supplement 10/21/23
dapagliflozin propanediol 10 mg tablet (Farxiga) 10 mg PO DAILY Kidney Disease 10/21/23
denosumab 60 mg/mL subcutaneous syringe (Prolia) 60 mg SC [id number] osteoporosis 10/21/23
ergocalciferol (vitamin D2) 1,250 mcg (50,000 unit) capsule 7,500 mcg PO BID Supplement 10/21/23
tamsulosin 0.4 mg capsule 0.4 mg PO QPM Urinary Issue 10/21/23
eplerenone 25 mg tablet (Inspra) 25 mg PO Q48H@2000 02/08/24
fluticasone propionate 50 mcg/actuation nasal spray,suspension 1 spray intranasal DAILYPRN PRN nasal congestion 02/08/24
potassium citrate 99 mg capsule 99 mg PO MEALS 02/08/24
prednisone 10 mg tablet 10 mg PO DAILYPRN PRN Gout 02/08/24
calcium carbonate 500 mg PO TID 06/26/24
iron 20 mg PO TID 06/26/24
melatonin 10 mg tablet 10 mg PO HS 06/26/24
mupirocin 2 % topical ointment 1 applic topical BIDPRN PRN nasal 07/05/24
Lactobac no.2-Bifidobac no.1-S. thermo 112.5 billion cell capsule (Visbiome) 1 cap PO DAILY 09/18/24
magnesium oxide 400 mg PO QPM 09/18/24
therapeutic multivitamin 1 tab PO TID 09/18/24
vitamin A palmitate 7,500 mcg (25,000 unit) capsule 7,500 mcg PO HS 09/18/24
zinc sulfate 50 mg zinc (220 mg) tablet 50 mg PO QPM 09/18/24
cefuroxime axetil 250 mg tablet 250 mg PO BID #10 tabs 09/21/24
phenazopyridine 100 mg tablet (Pyridium) 100 mg PO BID #60 tabs 09/21/24
tramadol 25 mg tablet 25 mg PO Q8H PRN Pain #14 tabs 09/21/24
ferrous sulfate 325 mg po daily-30
Home Medication Changes
new
cefuroxime axetil 250 mg tablet 250 mg PO BID #10 tabs 09/21/24
phenazopyridine 100 mg tablet (Pyridium) 100 mg PO BID #60 tabs 09/21/24
tramadol 25 mg tablet 25 mg PO Q8H PRN Pain #14 tabs 09/21/24
ferrous sulfate 325 mg po daily-30
Pending Results: Yes
Additional Pending Results:
urine cx
[2024-09-21] MEDS: FLUAD (65 yr+) 2024-2025 FORMULA 0.5 ML IM (10:26)
--- NOTE | 2024-09-21 10:26 | CM ---
Met with patient at bedside to discuss discharge plan
Reported his will transport him home
IMM benefit explained; form signed @ 1025
Plan: Discharge to home; no needs
[2024-09-21] MEDS: INSPRA 25 MG PO (10:47)
[2024-09-21] MEDS: FLUSH (NSS) 1 FLUSH IV (12:57)
[2024-09-21] MEDS: FERRLECIT 110 MG IV (12:58)
[2024-09-21 14:29] VITALS: BP 134/73
[2024-09-23 11:51] LABS: Stone Analysis Mass 137 mg
== END 2024-09-21 15:08 | disposition home or self-care (01) | DRG 660 ==
LOC: 2 SOUTH 21:41
PROVIDERS: Physician Assistant Medical; Registered Nurse; ADMITTING PHYSICIAN Hospitalist; ATTENDING PHYSICIAN Hospitalist; EMERGENCY PHYSICIAN Emergency Medicine; FAMILY PHYSICIAN Internal Medicine; OTHER PHYSICIAN Specialist
PROC: 0TC68ZZ Extirpation of Matter from Right Ureter, Via Natural or Artificial Opening Endoscopic (ICD-10-PCS; 2024-09-20)
PROC: 0T768DZ Dilation of Right Ureter with Intraluminal Device, Via Natural or Artificial Opening Endoscopic (ICD-10-PCS; 2024-09-20)
PROC: 3E02340 Introduction of Influenza Vaccine into Muscle, Percutaneous Approach (ICD-10-PCS; 2024-09-21)
DX: N13.0 Hydronephrosis with ureteropelvic junction obstruction (principal); R71.0 Precipitous drop in hematocrit; N17.9 Acute kidney failure, unspecified; N13.2 Hydronephrosis with renal and ureteral calculous obstruction; I12.9 Hypertensive chronic kidney disease with stage 1 through stage 4 chronic kidney disease, or unspecified chronic kidney disease; N18.30 Chronic kidney disease, stage 3 unspecified; K21.9 Gastro-esophageal reflux disease without esophagitis; D50.9 Iron deficiency anemia, unspecified; E11.22 Type 2 diabetes mellitus with diabetic chronic kidney disease; G47.33 Obstructive sleep apnea (adult) (pediatric); E26.89 Other hyperaldosteronism; G89.29 Other chronic pain; E87.5 Hyperkalemia; E21.3 Hyperparathyroidism, unspecified; N40.0 Benign prostatic hyperplasia without lower urinary tract symptoms; N52.9 Male erectile dysfunction, unspecified; M19.90 Unspecified osteoarthritis, unspecified site; D64.9 Anemia, unspecified; E61.1 Iron deficiency; R50.82 Postprocedural fever; Z96.653 Presence of artificial knee joint, bilateral; Z96.611 Presence of right artificial shoulder joint; Z87.442 Personal history of urinary calculi; Z90.49 Acquired absence of other specified parts of digestive tract; Z98.84 Bariatric surgery status; Z87.891 Personal history of nicotine dependence; Z98.1 Arthrodesis status; Z88.8 Allergy status to other drugs, medicaments and biological substances; Z91.018 Allergy to other foods; Z79.82 Long term (current) use of aspirin; Z79.84 Long term (current) use of oral hypoglycemic drugs; Z79.51 Long term (current) use of inhaled steroids; Z79.52 Long term (current) use of systemic steroids; Z23 Encounter for immunization
CPT/HCPCS: 36415; 74018; 74176; 76000; 80048; 80053; 80061; 81003; 81015; 82248; 82306; 82365; 82570; 82607; 82728; 82746; 83540; 83550; 83735; 83970; 84100; 84156; 84425; 84446; 84550; 84590; 84630; 85014; 85018; 85025; 85027; 87086; 90662; 93005; 96374; 96375; 96376; 99285; C1758; C1894; C2617; G0008; J2916

== ENCOUNTER → 2024-09-25 10:52 | Outpatient (REF) | payer MEDICARE, OTHER, SELFPAY ==
[2024-09-25 12:23] LABS: % Basophils 0.5 % (0-2); % Eosinophils 1.3 % (0-6); % Immature Granulocytes 0.5 % (0-0.5); % Lymphocytes 21.9 % (20.5-51.1); % Monocytes 8.5 % (1.7-9.3); % Neutrophils 67.3 % (42.2-75.2); Absolute Eosinophils 0.1 10^3/uL (0-0.7); Absolute Lymphocytes 1.8 10^3/uL (1.2-3.4); Absolute Monocytes 0.7 10^3/uL (0.1-0.6); Absolute Neutrophils 5.4 10^3/uL (1.4-6.5); Hematocrit 28.1 % (39.0-52.0); Hemoglobin 8.3 g/dL (13.0-18.0); Mean Corp Hgb Conc. 29.5 g/dL (33.0-37.0); Mean Corpuscular Hgb 30.3 pg (27.0-31.0); Mean Corpuscular Volume 102.6 fL (80.0-94.0); Mean Platelet Volume 10.4 fL (7.4-10.4); Nucleated Red Blood Cells % 0 % (-); Platelet Count 261 10^3/uL (130-400); Red Blood Cell Count 2.74 10^6/uL (4.70-6.10)
[2024-09-25 13:13] LABS: Blood Urea Nitrogen 29 mg/dl (9-20); Calcium 9.8 mg/dl (8.4-10.2); Carbon Dioxide 25 mmol/L (22-30); Chloride 102 mmol/L (98-107); Glucose 82 mg/dl (70-99); Potassium 4.4 mmol/L (3.5-5.1); Sodium 137 mmol/L (135-145)
== END ==
LOC: REG 10:52
PROVIDERS: ATTENDING PHYSICIAN Internal Medicine
DX: D64.9 Anemia, unspecified (principal); N18.9 Chronic kidney disease, unspecified
CPT/HCPCS: 36415; 80048; 85025

== ENCOUNTER 2024-10-11 06:42 | Day surgery (SDC) | payer MEDICARE, OTHER, SELFPAY ==
--- NOTE | 2024-10-09 14:06 | PTCARENOTE ---
Dr Vaughn made aware of Hgb 8.3, repeat Hgb morning of surgery ordered.
[2024-10-11] VITALS (8 sets, daily range): BP systolic 106–133; BP diastolic 63–77; BMI 29.0
[2024-10-11] MEDS: NORMOSOL-R/PLASMALYTE-A 1000 IV (11:07)
[2024-10-16 17:37] LABS: Stone Analysis Mass 148 mg
== END 2024-10-11 15:50 | disposition home or self-care (01) ==
LOC: SDS 06:42
PROVIDERS: ATTENDING PHYSICIAN Specialist
DX: N20.0 Calculus of kidney (principal); C66.1 Malignant neoplasm of right ureter
CPT/HCPCS: 52356; 52354; 88305; 74018; 76000; 82365; C1758; C1894; C2617

== ENCOUNTER → 2024-10-22 12:43 | Outpatient (REF) | payer MEDICARE, OTHER, SELFPAY | LOC: REG 12:43 | PROVIDERS: ATTENDING PHYSICIAN Specialist; FAMILY PHYSICIAN Internal Medicine; REFERRING PHYSICIAN Specialist | DX: N30.20 Other chronic cystitis without hematuria (principal) | CPT/HCPCS: 87086 ==

== ENCOUNTER 2024-10-31 13:37 | Inpatient (IN) | payer MEDICARE, OTHER, SELFPAY ==
[2024-10-31] VITALS (29 sets, daily range): BP systolic 72–98; BP diastolic 54–66; BMI 26.9
--- NOTE | 2024-10-31 09:06 | ED.GENMED ---
History of Present Illness
General
Chief Complaint: Abdominal Symptoms
Source: patient and spouse
Exam Limitations: none
Time Seen by Provider: 10/31/24 09:05
Nursing documentation reviewed up to this point in time: agreed with
History of Present Illness
History of Present Illness:
Patient is a 74-year-old male with past medical history of chronic kidney disease stage III, renal stones brought to the ER by for evaluation. Patient has been sick since October 20. He started with decreased appetite fevers and diarrhea.
He has had persistent diarrhea and has been too weak to even get out of a chair. He does report he has sores on his buttocks because of this. He was extremely weak. He reports he can barely drink water.
He has not vomited. He denies any abdominal pain with this. Denies any chest pain shortness of breath. He does report he is still urinating but little amounts.
He does report he has been sitting in a chair most of the time and has a soreness to his bottom because he has been too weak to get up.
Past History
Past History
ED Past Medical History: GERD, HTN, NIDDM, Other (Sleep apnea) and Other (Hyperaldosteronism)
ED Past Surgical History: Appendectomy, Cholecystectomy, Orthopedic and Urological (multiple renal calculi extreactions)
Social History
Tobacco: Non-smoker
Alcohol: None
Drug: None
Personal:
Living: with family
Employment: Retired
Review of Systems
Review of Systems
Allergies reviewed?: Yes
All Other Systems: ROS reviewed and negative except as documented in HPI and ROS
Constitutional: Reports fatigue
Respiratory: Reports no symptoms
Cardiac: Reports no symptoms; Denies chest pain, diaphoresis, palpitations or syncope
ABD/GI: Reports nausea and diarrhea
: Reports no symptoms
Musculoskeletal: Reports no symptoms
Skin: Reports other (soreness to buttocks )
Phy Exam
General Physical Exam
General Presentation: no apparent distress
General age: appears stated age
General Skin: warm and dry
General Habitus: normal
General Mental: alert
General Hydration: appears well hydrated
Cardiovascular Exam
Cardiovascular Exam: regular rate/rhythm, no murmur and normal peripheral pulses
Pulmonary Exam
Pulmonary Exam: lungs clear and no respiratory distress
Neurological Exam
Neurological Exam: alert and oriented x3
Musculoskeletal Exam
Musculoskeletal Exam: full ROM
Skin Exam
Skin Exam: normal color, warm/dry and other (Buttocks with redness, stage I and small area of open wound stage II to lower sacrum region )
Psychiatric Exam
Psychiatric Exam: normal mood/affect
Sepsis
Sepsis Screening
Sepsis Assessment: Sepsis Ruled Out
Sepsis Screen
Sepsis Screen: Sepsis Ruled Out
Date: 10/31/24
Time: 15:15
Course
Orders/Labs/Results
Orders:
Orders
10/31/24 09:20
0.9% Sodium Chloride 1000 ml [Nss] 1,000 ml IV BOLUS
10/31/24 09:21
Electrocardiogram (*1) Stat
Reason for Study: Abdominal Pain
Cardiac Monitoring- Treatment ONCE
EKG- Treatment ONCE
IV Insert/Care/Rem.- Treatment PRN
10/31/24 09:22
Stool Culture Urgent
NEELIMA Source: Feces/Stool
Specimen Description:
10/31/24 09:29
Complete Blood Count/With Diff Urgent
Comprehensive Metabolic Panel Urgent
Manual Differential Urgent
10/31/24 11:35
Calcium Gluconate 1 gram/100mL [Calcium Gluconate] 1 gram in 100 ml IV ONCE
10/31/24 11:59
Potassium Chloride [KCl] 40 meq 0.9% Sodium Chloride 250 ml [Nss] 250 ml IV NOW
10/31/24 12:38
Urinalysis Reflex To Culture Routine
Date Specimen was Collected: 10/31/24
Time Specimen was Collected: 13:44
STOOL [C difficile Antigen & Toxins] Routine
NEELIMA Source: Feces/Stool
Specimen Description:
Stool For WBC Routine
NEELIMA Source: Feces/Stool
Specimen Description:
10/31/24 12:39
CR Chest - 2 Views Urgent
Comment:
Reason For Exam: bandemia hypotension
10/31/24 12:49
Admit/Transfer Patient As Directed
Co-Sign Provider:
Level of Care: Inpatient admission
Assign to:: IMU- Intermediate Care
Physician / Group: marybeth cota
Diagnosis: bandenia concern infectious diarrhea, hypoCA,hypoK,HypoNA
Reason for Hospitalization: bandenia concern infectious diarrhea, hypoCA,hypoK,HypoNA
Expected length of stay greater than two midnights?: Yes
ELOS- Estimated Length of Stay in days: 5
I certify the patient meets the requirements for IP care: Yes
Code Status As Directed
Resuscitation Status: Full Code
10/31/24 12:53
Blood Culture Q30M
NEELIMA Source: Blood/Venous
Specimen Description:
PRN Pain Medication Management As Directed
May give lesser potent ordered pain med per pt: Yes
preference::
Protocol:: Medication orders for pain may be administered in a
manner that supports deferring to patient preference
when the pt is:
- Requesting an ordered lesser potent pain medication.
Least to most potent pain medications are defined
as: acetaminophen < NSAID < tramadol < opioids
(morphine, oxycodone, hydromorphone).
- Requesting a lesser dose of the same medication IF
ORDERED.
- Requesting a less intrusive route of administration
if both routes are prescribed by the provider (PO <
IV).
10/31/24 13:07
Magnesium Urgent
Serum Osmolality Routine
Blood Culture Q30M
NEELIMA Source: Blood/Venous
Specimen Description:
10/31/24 13:15
Sterile Water For Inj [Sterile Water For Injection 1000 ml] 1,000 ml Sodium Bicarbonate 150 meq IV 150 mls/hr
10/31/24 13:17
Sodium Bicarbonate 50 meq IV NOW STA
10/31/24 13:20
Abdomen/Pelvis wo Contrast CT [CT Abd/pelvis Wo Iv Cont] Urgent
Comment:
Reason For Exam: diarrha hypotension
10/31/24 13:25
Precautions As Directed
Type of Precautions: Contact
Comment: dairrhea 11 days pending cdiff culture also
10/31/24 13:48
Urinalysis Reflex To Culture Urgent
Date Specimen was Collected: 10/31/24
Time Specimen was Collected: 13:44
Urine Osmolality Random [Osmolality, Random Urine] Routine
Date Specimen was Collected: 10/31/24
Time Specimen was Collected: 13:44
Urine Sodium Routine
Date Specimen was Collected: 10/31/24
Time Specimen was Collected: 13:44
10/31/24 16:00
CMP [Comprehensive Metabolic Panel] Urgent
Abnormal Lab Results
10/31/24 10/31/24
09:29 13:07
RBC 2.69 L 10^6/uL
(4.70-6.10)
Hgb 8.4 L g/dL
(13.0-18.0)
Hct 25.5 L %
(39.0-52.0)
MCV 94.8 H fL
(80.0-94.0)
MCH 31.2 H pg
(27.0-31.0)
MCHC 32.9 L g/dL
(33.0-37.0)
RDW 17.2 H %
(11.5-14.5)
Segmented Neutrophils 80 H %
(42-75)
Band Neutrophils 11 H %
(0-3)
Lymphocytes (Manual) 4 L %
(20-51)
Sodium 128 L mmol/L
(135-145)
Potassium 3.3 L mmol/L
(3.5-5.1)
Carbon Dioxide 13 L* mmol/L
(22-30)
BUN 75 H mg/dl
(9-20)
Creatinine 2.2 H mg/dL
(0.7-1.3)
Glucose 103 H mg/dl
(70-99)
Calcium 5.5 L* mg/dl
(8.4-10.2)
Magnesium 2.6 H mg/dl
(1.6-2.3)
Albumin 3.4 L g/dl
(3.5-5.0)
10/31/24 09:29
10/31/24 09:29
Vital Signs
Initial and Last Documented VS:
Initial Vital Signs
Temp Pulse Resp BP Pulse Ox
98 F 92 18 84/61 97
10/31/24 08:53 10/31/24 08:53 10/31/24 08:53 10/31/24 08:53 10/31/24 08:53
Last Documented Vital Signs
Temp Pulse Resp BP Pulse Ox
98.6 F 91 19 91/60 97
10/31/24 10:56 10/31/24 14:00 10/31/24 14:00 10/31/24 14:00 10/31/24 13:30
Clinical Biochemical Geneticist consulted with Physician
Clinical Biochemical Geneticist consulted with physician?: Yes
Name of Physician Consulted: noh
MDM/Problems Addressed
Differential Diagnosis Includes:
not limited to:
Acute dehydration renal insufficiency worsening renal failure
MDM/Problems Addressed:
Patient is documented is a 74-year-old male with chronic renal disease presents for weakness and persistent diarrhea for for 12 days. Patient presents very dehydrated hypertensive here in the ER. He denies any fevers his white count is 6.8. His
hemoglobin is baseline at 8.4. His creatinine is 2.2, which is higher than 1.7 09/25. He however does have a history of renal disease. His bicarb is very low with team. He was hydrated with fluids. His calcium is also 5.5. Patient is on Prolia
and is post to be taking oral calcium however has not been able to do so recently with feeling sick.
Patient will require admission for dehydration. Calcium will need to be rechecked .calcium was ordered for supplementation.
Chronic conditions affecting care:
Chronic renal disease
*Pulse Oximetry
Patient hypoxic: no
*EKG
Interpretation: abnormal
Heart Rate: 89
Rate: normal
Rhythm: sinus
Ischemia: non-specific ST changes
*Critical Care Note
Total Time (30-74mins, 75-104mins- exclusive of procedures): Not Applicable
Patient Management
Discussion with other providers: Compounder (Nephrology)
ED Attending Note
-
Portions of this chart may have been created with voice recognition software.� Occasional wrong word or��sound alike� substitutions may have occurred due to the inherent limitations of voice recognition software.
Discharge Plan
Departure
Patient Disposition: Admit
Date of Disposition: 10/31/24
Time of Disposition: 12:09
Admit to: Med/Surg
Admit to doctor: hospitalist
Presentation/result/management discussed w/ accepting MD/DO: Hospitalist
Patient with high blood pressure during this ER visit?: No
Covid-19: Not Applicable
Discharge Problem:
Acute dehydration, Acute hyponatremia, Acute hypokalemia, Hypocalcemia, Diarrhea, Metabolic acidosis
Interventions
Interventions:
*Risk Screen - Suicide Last Done: 10/31/24 08:53
*General Assessment Last Done: 10/31/24 08:53
*Neglect/Abuse Screening Last Done: 10/31/24 08:53
ED- Fall Risk Assessment Last Done: 10/31/24 10:54
*ED COVID-19 Vaccine History Last Done: 10/31/24 10:54
PY-Rzrupp-Hwhbfjfxau Assessment Last Done: 10/31/24 09:30
[2024-10-31] MEDS: NSS 1000 IV ×3 (09:20→21:16)
[2024-10-31 09:40] LABS: Hematocrit 25.5 % (39.0-52.0); Hemoglobin 8.4 g/dL (13.0-18.0); Mean Corp Hgb Conc. 32.9 g/dL (33.0-37.0); Mean Corpuscular Hgb 31.2 pg (27.0-31.0); Mean Corpuscular Volume 94.8 fL (80.0-94.0); Mean Platelet Volume 9.9 fL (7.4-10.4); Platelet Count 283 10^3/uL (130-400); Red Blood Cell Count 2.69 10^6/uL (4.70-6.10); Red Cell Dist. Width 17.2 % (11.5-14.5); White Blood Cell Count 6.8 10^3/uL (4.8-10.8)
[2024-10-31 09:58] LABS: Absolute Neutrophils -Man Diff 6.1 10^3/uL (1.4-6.5); Anisocytosis 1+; Band Neutrophils 11 % (0-3); Hypochromasia 2+; Lymphocytes 4 % (20-51); Monocytes 5 % (2-9); Normal RBC Morphology No; Platelets Checked Yes; Segmented Neutrophils 80 % (42-75)
[2024-10-31 09:59] LABS: Polychromasia 1+; Total Cells Counted 100
[2024-10-31 10:04] LABS: ALT (SGPT) 21 U/L (0-50); AST (SGOT) 25 U/L (17-59); Albumin 3.4 g/dl (3.5-5.0); Alkaline Phosphatase 89 U/L (38-126); Blood Urea Nitrogen 75 mg/dl (9-20); Calcium 5.5 mg/dl (8.4-10.2); Carbon Dioxide 13 mmol/L (22-30); Chloride 98 mmol/L (98-107); Estimated Creatinine Clearance 29 ml/min; Glucose 103 mg/dl (70-99); Potassium 3.3 mmol/L (3.5-5.1); Sodium 128 mmol/L (135-145); Total Bilirubin 0.7 mg/dl (0.2-1.3); Total Protein 6.3 g/dl (6.3-8.2); eGFR 31.05
[2024-10-31] MEDS: CALCIUM GLUCONATE 100 IV (12:39)
--- NOTE | 2024-10-31 12:43 | HPS.HSE ---
Family Physician
-
Family Physician: Ryan Gonzalez
Chief Complaint
-
Diarrhea x 11 days, lightheadedness
History of Present Illness
74-year-old male complaining of watery brown diarrhea since 10/20 up to 8-10 times per day he states on 10/21 and 10/22 he developed a fever with Tmax of 102.5. He then continued with watery brown diarrhea up to 15 times a day. He states he has
not been taking any of his medications except his eplerenone 25 mg every 48 H on 10/28. He complains of feeling lightheaded over the past few days states the fever did not return. He was on Ceftin from 09/21-2023 after clot removal from
right ureter postop UVJ stone removal. He had additional procedure on 10/11 status post cystoscopy right ureteroscopy with ureteral biopsy and fulguration, right ureteroscopy with complex laser lithotripsy, stone extraction and stent placement
possible preop ABX. He denies current fever, chills, sore throat, chest pain, palpitations, shortness breath, cough, abdominal pain, urinary symptoms.
The patient had a recent admission 09/18 - 09/21/2024 status post obstructing right UVJ stone removal with clots in ureter stent was placed for additional stone removal October 11. He had hemoglobin drop was found to be iron deficient IV iron was
started and he was due to resume IV iron as an outpatient due to history of duodenal switch in 2008. He did develop fever postop and was treated with Ceftin for 5 days. He has past medical history of CKD stage IIIb, BPH, gout, hyperaldosteronism,
biliopancreatic diversion with duodenal switch and Choledochoduodenostomy for weight loss in 2008 at [facility], sleep apnea/CPAP, cervical fusion, ex-smoker, multiple renal calculi left and right with recent removals
September 2024.
Medical History
Past Medical History
Past Medical History: Reports Other
Additional Past Medical History:
Hyperaldosteronism
Hyperparathyroidism
CKD Stage III
Obstructive Sleep Apnea
BPH
Nephrolithiasis
Past Surgical History: Reports Other
Additional Past Surgical History:
Biliopancreatic Diversion with Duodenal Switch
Choledochoduodenostomy
Umbilical Hernia Repair
Right Reverse Total Shoulder Replacement
Left Rotator Cuff Repair
Left Distal Radius ORIF
Bilateral Carpal Tunnel Release
Left Trigger Finger Release
Cervical Fusion
Social History
Tobacco: Former Smoker (Quit in 1986)
Alcohol: Other (Very Rare)
Drug: None
Personal:
Living: With Family
Family History
Family History: Not pertinent
Allergies / Home Medications
Allergies reflects when Allergies were last updated in [employer].
Home Medications with original date entered in [employer]
Allergy/Medication List:
Allergies
Allergy/AdvReac Type Severity Reaction Status Date / Time
oxycodone Allergy Intermediate Itching Verified 10/31/24 08:53
gluten Allergy diarrhea Verified 10/31/24 08:53
and chills
NSAIDS (Non-Steroidal Allergy KIDNEY Verified 10/31/24 08:53
Anti-Inflamma DISEASE
thiopental Allergy Agitation Verified 10/31/24 08:53
Home Medications
allopurinol 300 mg tablet 300 mg PO QPM Gout 05/12/09
aspirin 81 mg tablet,delayed release 81 mg PO QPM Blood Clot Prevention/Tx 10/21/23
calcitriol 0.5 mcg capsule 2 mcg PO BID Kidney Disease 10/21/23
coenzyme Q10 100 mg capsule (Co Q-10) 100 mg PO QPM Supplement 10/21/23
dapagliflozin propanediol 10 mg tablet (Farxiga) 10 mg PO DAILY Kidney Disease 10/21/23
denosumab 60 mg/mL subcutaneous syringe (Prolia) 60 mg SC [id number] osteoporosis 10/21/23
ergocalciferol (vitamin D2) 1,250 mcg (50,000 unit) capsule 7,500 mcg PO BID Supplement 10/21/23
tamsulosin 0.4 mg capsule 0.4 mg PO QPM Urinary Issue 10/21/23
eplerenone 25 mg tablet (Inspra) 25 mg PO Q48H@199902/08/24
fluticasone propionate 50 mcg/actuation nasal spray,suspension 1 spray intranasal DAILYPRN PRN nasal congestion 02/08/24
potassium citrate 99 mg capsule 99 mg PO MEALS 02/08/24
calcium carbonate 500 mg PO TID 06/26/24
melatonin 10 mg tablet 10 mg PO HS 06/26/24
Lactobac no.2-Bifidobac no.1-S. thermo 112.5 billion cell capsule (Visbiome) 1 cap PO DAILY 09/18/24
therapeutic multivitamin 1 tab PO TID 09/18/24
vitamin A palmitate 7,500 mcg (25,000 unit) capsule 7,500 mcg PO HS 09/18/24
iron 20 mg PO TID 10/09/24
magnesium 250 mg tablet 250 mg PO DAILY 10/09/24
zinc acetate 50 mg (zinc) capsule 50 mg PO DAILY 10/09/24
Review of Systems
-
History Source: Patient and Family
A 12 point ROS was completed and negative except as noted: Yes
Constitutional: Reports Fever (10/21, 10/22) and Fatigue
EENT: Denies Sore Throat or Runny Nose
Respiratory: Denies Cough or Trouble Breathing
Cardiac: Denies Chest Pain, Diaphoresis, Palpitations or Syncope
Abdomen/GI: Reports Nausea, Vomiting and Diarrhea (Watery brown since 09/2021); Denies Abdominal Pain or Constipated
: Denies Dysuria, Frequency, Flank Pain, Incontinence, Difficulty Voiding or Urgency
Musculoskeletal: Reports Edema (Chronic bilateral leg edema not wearing his teds he states right leg slightly more prominent edema right leg+1, left leg trace); Denies Joint Pain or Joint Swelling
Skin: Denies Itching or Rash
Neurological: Reports Dizzy and Weakness (Generalized); Denies Headache
Endocrine: Reports No Symptoms
Hematologic/Lymphatic: Reports No Symptoms
Psych: Reports Calm
Physical Exam
Vital Signs
Vital Signs
Temp Pulse Resp BP Pulse Ox
98.6 F 90 17 98/60 97
10/31/24 10:56 10/31/24 11:00 10/31/24 11:00 10/31/24 11:00 10/31/24 10:56
Physical Exam
General: Conversant; No Pain, Fever or Chills
HEENT: NormoCephalic, Anicteric, Moist mucous membranes, PERRLA, [place] Conjunctivae and No Ptosis
Respiratory: Clear; No Wheezes, Rales or Rhonchi
Cardiac: S1/S2, Regular Rhythm and Peripheral Edema (Chronic bilateral leg edema not wearing his teds he states right leg slightly more prominent edema right leg+1, left leg trace); No Murmur, Rub or Gallop
GI: Soft, Non Tender, Non Distended and Normal Bowel Sounds
Rectal: Deferred by Provider
Genito-urinary: Deferred by me
Musculoskeletal: No Clubbing, No Cyanosis, Edema, Left Lower Extremity (Chronic bilateral leg edema not wearing his teds he states right leg slightly more prominent edema right leg+1, left leg trace) and Edema, Right Lower Extremity (Chronic
bilateral leg edema not wearing his teds he states right leg slightly more prominent edema right leg+1, left leg trace); No Edema, Left Upper Extremity or Edema, Right Upper Extremity
Skin: Warm and Dry; No Rash
Neuro: AO x 3, No Motor Deficits and No Sensory Deficits; No Cranial Nerves Intact, Slurred Speech, Facial Droop, Tremors or Sedated
Psych: Calm
Laboratory Results
-
10/31/24 09:29
10/31/24 09:29
Laboratory Results
Total Bilirubin 0.7 mg/dl (0.2-1.3) 10/31/24 09:29
AST 25 U/L (17-59) 10/31/24 09:29
ALT 21 U/L (0-50) 10/31/24 09:29
Alkaline Phosphatase 89 U/L (38-126) 10/31/24 09:29
Data Reviewed
-
Lab Data: Labs Reviewed by me
Impression/Plan
-
Impression/plan:
Admit to IMU
#Bandemia unclear etiology concern for infectious diarrhea/ C-diff
Persistent watery brown diarrhea 10/20�current total 11 days with fever on 10/21- 10/22 Tmax 1-2.5
Ceftin 09/21 to 09/26 post of fever cysto with stone removal and stent
WBC 6.8, bands 11%
We will check stool cultures, stool WBC, C. difficile
-Contact precautions secondary to diarrhea
-N.p.o.
-UA /PLATEMAKER
-CXR
-Blood cultures x 2
-Will follow C. difficile culture if positive will start oral vancomycin/IV Flagyl if not we will treat with IV Zosyn
-Will check CT abdomen pelvis no oral or IV contrast secondary to vomiting/CKD 3B
-Follow daily CBC, CMP
#Metabolic acidosis 2/2 diarrheal losses/decreased oral intake
Carbon dioxide serum level 13
-Sodium bicarb Drip
-Will check CMP at 1700
#Symptomatic HYPOTENSION secondary to diarrheal losses/decreased oral intake
#Hx HTN�benign
Lightheadedness times several days
BP 86/58 post 1 L NSS
Will continue IV bicarb with push
-May require pressors
-Hold eplerenone 25 mg p.o. every 48 H-patient has not taken since 10/28/2024
-Hold Farxiga, hold Flomax
#Severe HYPOCALCEMIA
No reported muscle cramps or twitching
Serum 5.5> corrected calcium 6
-IV Calcium gluconate given in er
recheck ca in 5 hours @1600
#ASHLEY on CKD 3B 2/2 diarrheal losses/decreased oral intake
Creat 2.2/bun 75> 1.71 on 09/25/2024
-IV NSS
-Hold Farxiga
-Hold eplerenone 25 mg p.o. every 48 H-patient has not taken since 10/28/2024
#Hypokalemia secondary to diarrhea
K3.3
KCl 40 mEq rider started in ER
-Follow BMP
#Hyponatremia
Patient denies headache does report lightheadedness
NA 128
-Check TSH with free T4, urine sodium, urine Osmo, serum Osmo
-Follow BMP
# Obstructing right UVJ stones S/p cystoscopy and stone extraction by Dr. Hardy on 09/19/2024.
Patient also had large volume dense clots in the ureter with difficult visualization. Stent was placed. 09/19/2024
#History of multiple renal stone extraction in the past
-Patient was treated for postop fever with Ceftin x 7 days starting on 09/19/2024
# Hyperaldosteronism
-Hold eplerenone secondary to hypotension
# Enlarged prostate-continue Flomax
# History of gout-continue allopurinol
# History of biliopancreatic diversion duodenal switch with choledochoduodenostomy 2008 for weight loss at [facility]( [facility] Bariatric center)
# Sleep apnea-continue CPAP
Wears nasal pleased with fluctuating pressures up to 20
# History of cervical fusion
# Ex-smoker
# DVT prophylaxis
Subcu heparin
Full code per patient with at bedside
[2024-10-31] MEDS: KCL 270 MEQ IV (13:03)
--- NOTE | 2024-10-31 13:22 | W.PN.UPDATE ---
Addendum entered and electronically signed by Susannah Cortes MD 10/31/24 16:55:
CT scan shows pancolitis. Started Zosyn.
Original Note:
Update Note
Progress Note Update
This is an addendum to the H&P written by Polly Freeman on 10/31/2024. Patient seen examined independently with GRAVEL WEIGHER.
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
ongoing severe diarrhea since 10/20 with intermittent fevers. No abdominal pain or vomiting.
Patient arrives with blood pressure of 84/61. Labs show stable anemia with hemoglobin 8.4.
Labs also show severe metabolic acidosis with bicarb of 13, potassium 3.3, ASHLEY on CKD with creatinine of 2.2, hypocalcemia 5.5. Presentation consistent with acute viral gastroenteritis/colitis with high concern for C. difficile. Check stool
studies, C. difficile, blood cultures. Check CT abdomen pelvis. IV fluids with bicarbonate. Potassium and calcium repletion. If C. difficile is positive we will start oral vancomycin/Flagyl if C. difficile is negative will start Zosyn. Recheck
BMP in few hours. NPO.
[2024-10-31 13:46] LABS: Magnesium 2.6 mg/dl (1.6-2.3)
[2024-10-31 13:47] LABS: Osmolality Serum 292 mOsm/kg (275-300)
[2024-10-31 13:57] LABS: Urine Albumin Trace (Neg - Trace); Urine Bilirubin Negative (Negative); Urine Character Clear (Clear); Urine Color Yellow; Urine Glucose Negative (Negative); Urine Ketone Negative (Negative); Urine Leukocyte Negative (Negative); Urine Nitrite Negative (Negative); Urine Occult Blood 2+ (Negative); Urine Specific Gravity 1.015 (<1.030); Urine Urobilinogen Negative (Neg - 1+)
--- NOTE | 2024-10-31 14:05 | W.CON.NEPH ---
Consultation
-
Date/Time Consultation Requested: October 31, 2024 at 11 AM
Date/Time Consultation Performed: October 31, 2024 at 2 PM
Requesting Provider: Dr. Freeman
Performing Provider: Dr. Randall Kelly
Reason for Consultation: acute on chronic kidney disease and metabolic acidosis
Medical History
-
Chief Complaint: acute kidney injury associate with diarrhea
History of Present Illness:
74-year-old male complaining of watery brown diarrhea since 10/20 up to 8-10 times per day he states on 10/21 and 10/22 he developed a fever with Tmax of 102.5. He was on Ceftin from 09/21-2023 after clot removal from right ureter postop
UVJ stone removal. He had additional procedure on 10/11 status post cystoscopy right ureteroscopy with ureteral biopsy and fulguration, right ureteroscopy with complex laser lithotripsy, stone extraction and stent placement possible preop ABX.
recent admission 09/18 - 09/21/2024 status post obstructing right UVJ stone removal with clots in ureter stent was placed for additional stone removal October 11.
otherpast medical history includes CKD stage IIIb and follows with Dr. 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,
sleep apnea/CPAP, cervical fusion, ex-smoker, multiple renal calculi left and right with recent removals September 2024.
renal consultation for acute and chronic kidney disease will baseline creatinine 1.7 and acute metabolic acidosis
Past Medical History
CKD stage IIIb and follows with Dr. 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, sleep apnea/CPAP, cervical fusion,
ex-smoker, multiple renal calculi left and right with recent removals September 2024.
Social History
non-smoker no alcohol use
Family History
no renal disease
Allergies / Home Medications
Allergy/AdvReac Type Severity Reaction Status Date / Time
oxycodone Allergy Intermediate Itching Verified 10/31/24 08:53
gluten Allergy diarrhea Verified 10/31/24 08:53
and chills
NSAIDS (Non-Steroidal Allergy KIDNEY Verified 10/31/24 08:53
Anti-Inflamma DISEASE
thiopental Allergy Agitation Verified 10/31/24 08:53
�Medication �Instructions �Recorded �Confirmed �Type
allopurinol 300 mg tablet 300 mg PO QPM Gout 05/12/09 10/31/24 History
aspirin 81 mg tablet,delayed 81 mg PO QPM Blood Clot 10/21/23 10/31/24 History
release Prevention/Tx
calcitriol 0.5 mcg capsule 2 mcg PO BID Kidney Disease 10/21/23 10/31/24 History
coenzyme Q10 100 mg capsule (Co 100 mg PO QPM Supplement 10/21/23 10/31/24 History
Q-10)
dapagliflozin propanediol 10 mg 10 mg PO DAILY Kidney Disease 10/21/23 10/31/24 History
tablet (Farxiga)
denosumab 60 mg/mL subcutaneous 60 mg SC [id number] osteoporosis 10/21/23 10/31/24 History
syringe (Prolia)
ergocalciferol (vitamin D2) 1,250 7,500 mcg PO BID Supplement 10/21/23 10/31/24 History
mcg (50,000 unit) capsule
tamsulosin 0.4 mg capsule 0.4 mg PO QPM Urinary Issue 10/21/23 10/31/24 History
eplerenone 25 mg tablet (Inspra) 25 mg PO Q48H@199902/08/24 10/31/24 History
fluticasone propionate 50 1 spray intranasal DAILYPRN PRN 02/08/24 10/31/24 History
mcg/actuation nasal nasal congestion
spray,suspension
potassium citrate 99 mg capsule 99 mg PO MEALS 02/08/24 10/31/24 History
calcium carbonate 500 mg PO TID 06/26/24 10/31/24 History
melatonin 10 mg tablet 10 mg PO HS 06/26/24 10/31/24 History
Lactobac no.2-Bifidobac no.1-S. 1 cap PO DAILY 09/18/24 10/31/24 History
thermo 112.5 billion cell capsule
(Visbiome)
therapeutic multivitamin 1 tab PO TID 09/18/24 10/31/24 History
vitamin A palmitate 7,500 mcg 7,500 mcg PO HS 09/18/24 10/31/24 History
(25,000 unit) capsule
iron 20 mg PO TID 10/09/24 10/31/24 History
magnesium 250 mg tablet 250 mg PO DAILY 10/09/24 10/31/24 History
zinc acetate 50 mg (zinc) capsule 50 mg PO DAILY 10/09/24 10/31/24 History
Review of Systems
-
diarrhea
All other systems: Negative unless noted
Physical Exam
Vital Signs
Vital Signs
Temp Pulse Resp BP Pulse Ox
98.6 F 95 18 89/66 96
10/31/24 10:56 10/31/24 13:00 10/31/24 13:00 10/31/24 13:00 10/31/24 13:00
Lab Results
WBC 6.8 10^3/uL (4.8-10.8) 10/31/24 09:29
RBC 2.69 10^6/uL (4.70-6.10) L 10/31/24 09:29
Hgb 8.4 g/dL (13.0-18.0) L 10/31/24 09:29
Hct 25.5 % (39.0-52.0) L 10/31/24 09:29
Plt Count 283 10^3/uL (130-400) 10/31/24 09:29
eGFR 31.05 10/31/24 09:29
Physical Exam
General no acute distress
HEENT no cephalic atraumatic extraocular muscle intact no scleral icterus no JVD neck supple
lungs clear to auscultation bilateral
heart regular S1-S2 positive
abdomen soft nontender positive bowel sounds
extremities no edema pulses present bilateral
Neurologically nonfocal alert and oriented x 3
Skin no lesions no abrasions no petechiae
Psych normal affect no bizarre behavior
Data Reviewed
-
Labs: Labs Reviewed by me
Assessment/Plan
-
74-year-old male complaining of watery brown diarrhea since 10/20 up to 8-10 times per day he states on 10/21 and 10/22 he developed a fever with Tmax of 102.5. He was on Ceftin from 09/21-2023 after clot removal from right ureter postop
UVJ stone removal. He had additional procedure on 10/11 status post cystoscopy right ureteroscopy with ureteral biopsy and fulguration, right ureteroscopy with complex laser lithotripsy, stone extraction and stent placement possible preop ABX.
recent admission 09/18 - 09/21/2024 status post obstructing right UVJ stone removal with clots in ureter stent was placed for additional stone removal October 11.
other past medical history includes CKD stage IIIb and follows with Dr. 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,
sleep apnea/CPAP, cervical fusion, ex-smoker, multiple renal calculi left and right with recent removals September 2024.
renal consultation for acute and chronic kidney disease will baseline creatinine 1.7 and acute metabolic acidosis
impression:
acute on chronic kidney disease stage IIIB the baseline creatinine 1.7 with admitting creatinine of 2.2.
Acute metabolic acidosis=Anion gap plus a Non gap metabolic acidosis.
History of recent renal calculi calcium oxalate stones>with recent antibiotic use
History of hyper Fuad.
Acute diarrhea
acute hypocalcemia/ hyponatremia
plan:
status post 1 L of normal saline in the ER As patient was hypotensive and clinically volume depleted
Avoid sodium bicarbonate with acute hypocalcemia as communicated with the primary team
start normal saline
stool studies.
Calcium feature writer given in the ED.
follow-up BMP and urine output
hold glomerular modifying medications , blood pressure medications, and Farxiga
[2024-10-31 14:19] LABS: Urine Urothelial Cell 0-2 /LPF (FEW)
[2024-10-31 14:21] LABS: Urine Red Blood Cell 16-20 /HPF (0-2)
[2024-10-31 14:22] LABS: Urine Bacteria Few (Negative)
[2024-10-31 14:29] LABS: Osmolality Urine 260 mOsm/kg (300-900)
[2024-10-31 14:36] LABS: Urine Sodium 38 mmol/L (30-90)
[2024-10-31 17:17] LABS: ALT (SGPT) 17 U/L (0-50); AST (SGOT) 22 U/L (17-59); Alkaline Phosphatase 81 U/L (38-126); Blood Urea Nitrogen 68 mg/dl (9-20); Calcium 5.4 mg/dl (8.4-10.2); Carbon Dioxide 12 mmol/L (22-30); Chloride 103 mmol/L (98-107); Estimated Creatinine Clearance 29 ml/min; Glucose 78 mg/dl (70-99); Potassium 3.8 mmol/L (3.5-5.1); Sodium 131 mmol/L (135-145); Total Bilirubin 0.5 mg/dl (0.2-1.3); Total Protein 5.8 g/dl (6.3-8.2); eGFR 31.05
[2024-10-31] MEDS: ZOSYN 50 IV (18:27)
[2024-10-31] MEDS: ASPIR LOW (ENTERIC COATED) 81 MG PO (19:05)
[2024-10-31] MEDS: ZYLOPRIM 300 MG PO (19:05)
[2024-10-31] MEDS: DRISDOL (VITAMIN D2) 300000 UNITS PO (21:10)
[2024-10-31] MEDS: HEPARIN 5000 UNITS SC (21:16)
[2024-10-31] MEDS: MELATONIN 10 MG PO (21:16)
[2024-10-31] MEDS: THERAGRAN 1 TABLET PO (21:16)
[2024-10-31] MEDS: OSCAL CAL 500 500 MG PO (21:16)
--- NOTE | 2024-10-31 21:32 | RESPNOTE ---
Spoke to patient about CPAP. He states he does not wear it anymore since a significant weight loss. I told him if he changed his mind to call us which he was agreeable to.
[2024-11-01] VITALS (57 sets, daily range): BP systolic 72–160; BP diastolic 40–84; PULSE 84–90; O2SAT 96–97; BMI 26.9
[2024-11-01] MEDS: CALCIUM GLUCONATE 130 MG IV (00:33)
[2024-11-01] MEDS: ZOSYN 50 IV ×5 (00:43→23:16)
--- NOTE | 2024-11-01 01:11 | PTCARENOTE ---
Admitted pt overnight. aaox3, pleasant, at bedside. Denies pain/SOB. No BM's so far. IVF running. Ca still low, RELIEF MAP MODELER aware, another ca rider ordered. BP's still running soft, MAPS all >65, RELIEF MAP MODELER aware, no new orders at this time. Continuos IVF
running. IVABX. Q2T. NO other issues at this time. Will monitor.
[2024-11-01] MEDS: NSS 500 IV (02:45)
[2024-11-01 03:37] LABS: % Basophils 0.3 % (0-2); % Eosinophils 0.5 % (0-6); % Immature Granulocytes 0.8 % (0-0.5); % Lymphocytes 6.6 % (20.5-51.1); % Monocytes 5.7 % (1.7-9.3); % Neutrophils 86.1 % (42.2-75.2); Absolute Immature Granulocytes 0.1 10^3/uL (0-0.05); Absolute Lymphocytes 0.4 10^3/uL (1.2-3.4); Absolute Monocytes 0.4 10^3/uL (0.1-0.6); Absolute Neutrophils 5.6 10^3/uL (1.4-6.5); Hematocrit 23.5 % (39.0-52.0); Hemoglobin 7.5 g/dL (13.0-18.0); Mean Corp Hgb Conc. 31.9 g/dL (33.0-37.0); Mean Corpuscular Hgb 31.8 pg (27.0-31.0); Mean Corpuscular Volume 99.6 fL (80.0-94.0); Mean Platelet Volume 9.9 fL (7.4-10.4); Nucleated Red Blood Cells % 0 % (-); Platelet Count 260 10^3/uL (130-400); Red Blood Cell Count 2.36 10^6/uL (4.70-6.10); Red Cell Dist. Width 17.4 % (11.5-14.5); White Blood Cell Count 6.5 10^3/uL (4.8-10.8)
[2024-11-01 04:35] LABS: ALT (SGPT) 16 U/L (0-50); AST (SGOT) 25 U/L (17-59); Albumin 2.7 g/dl (3.5-5.0); Alkaline Phosphatase 82 U/L (38-126); Blood Urea Nitrogen 57 mg/dl (9-20); Carbon Dioxide 11 mmol/L (22-30); Chloride 107 mmol/L (98-107); Estimated Creatinine Clearance 32 ml/min; Glucose 70 mg/dl (70-99); Potassium 3.7 mmol/L (3.5-5.1); Sodium 133 mmol/L (135-145); Total Bilirubin 0.7 mg/dl (0.2-1.3); Total Protein 5.4 g/dl (6.3-8.2); eGFR 34.81
[2024-11-01] MEDS: NSS 1000 IV ×3 (05:52→23:07)
[2024-11-01] MEDS: CALCIUM GLUCONATE 290 MG IV ×2 (05:52→14:05)
[2024-11-01] MEDS: LEVOPHED 250 IV ×2 (06:34→20:03)
[2024-11-01] MEDS: DRISDOL (VITAMIN D2) 300000 UNITS PO ×2 (07:34→20:12)
[2024-11-01] MEDS: OSCAL CAL 500 500 MG PO ×3 (07:34→20:14)
[2024-11-01] MEDS: VISBIOME 1 CAP PO (07:34)
[2024-11-01] MEDS: THERAGRAN 1 TABLET PO ×3 (07:34→20:14)
[2024-11-01] MEDS: HEPARIN 5000 UNITS SC ×2 (07:34→20:15)
--- NOTE | 2024-11-01 08:39 | W.PN.HOSP.TC ---
Today's Communication/Plan
-
see bold
Assessment / Plan
Assessment / Plan
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
ongoing severe diarrhea since 10/20 with intermittent fevers. No abdominal pain or vomiting.
#Bandemia unclear etiology concern for infectious diarrhea
Persistent watery brown diarrhea 10/20�current total 11 days with fever on 10/21- 10/22 Tmax 102.5
Ceftin 09/21 to 09/26 post of fever cysto with stone removal and stent
WBC 6.8, bands 11%
C. difficile negative, stool cultures pending
Continue IV Zosyn
#Metabolic acidosis 2/2 diarrheal losses/decreased oral intake
#ASHLEY on CKD 3B 2/2 diarrheal losses/decreased oral intake
-Hold Farxiga
-Hold eplerenone 25 mg p.o. every 48 H-patient has not taken since 10/28/2024
-Appreciate nephrology input, continue management as per nephrology
-Trend creatinine, no nephrotoxic drugs/NSAIDs
#Symptomatic HYPOTENSION secondary to diarrheal losses/decreased oral intake
#Hx HTN�benign
-Hold eplerenone 25 mg p.o. every 48 H-patient has not taken since 10/28/2024
-Hold Farxiga, hold Flomax
-Continue Levophed for goal MAP greater than 65
#Severe HYPOCALCEMIA
Secondary to malabsorption and Prolia injection on 10/01
No reported muscle cramps or twitching
Improving, continue calcium supplements
#Hypokalemia secondary to diarrhea
Repleted and resolved
#Hyponatremia
Mild, monitor
# Obstructing right UVJ stones S/p cystoscopy and stone extraction by Dr. Hardy on 09/19/2024.
#History of multiple renal stone extraction in the past
Patient also had large volume dense clots in the ureter with difficult visualization. Stent was placed. 09/19/2024
Patient was treated for postop fever with Ceftin x 7 days starting on 09/19/2024
# Hyperaldosteronism
-Hold eplerenone secondary to hypotension
# Enlarged prostate-continue Flomax
# History of gout-continue allopurinol
# History of biliopancreatic diversion duodenal switch with choledochoduodenostomy 2008 for weight loss at [facility]( Now part of [facility] Bariatric center)
# Sleep apnea-continue CPAP
Wears nasal pleased with fluctuating pressures up to 20
# History of cervical fusion
# Ex-smoker
DVT prophylaxis�subcu heparin
Full code
Total time spent to see the patient on the floor, examine the patient, review data and lab results, discuss treatment plan with patient, nursing staff around 52 minutes.
Physical Exam
General: No acute distress
HEENT: Normocephalic, Atraumatic, EOMI, MMM
Respiratory: Clear to Auscultation bilaterally
Cardiac: Normal S1/S2, Regular Rate and Rhythm
GI: Soft, Nontender, Nondistended, Normal Bowel Sounds
Extremities: No Clubbing, Cyanosis, or Edema
Neuro: Nonfocal/Grossly Intact
Psych: Calm, Cooperative
Derm: No Visible lesions
Anticipated Discharge: > 48 hours
Subjective/Interval History
-
Date of Service: November 01, 2024
No diarrhea since admission. Denies abdominal pain, nausea, or vomiting. No chest pain, no shortness of breath. No fever.
Objective Data
-
Labs:
Laboratory Results
11/01/24 11/01/24
02:46 09:00
WBC 6.5
Hgb 7.5 L
Hct 23.5 L
Plt Count 260
Sodium 133 L Pending
Potassium 3.7 Pending
Chloride 107 Pending
Carbon Dioxide 11 L* Pending
BUN 57 H Pending
Creatinine 2.0 H Pending
Glucose 70 Pending
Calcium 6.0 L* Pending
Total Bilirubin 0.7
AST 25
ALT 16
Alkaline Phosphatase 82
Vital Signs:
Vital Signs
Temp Pulse Resp BP Pulse Ox
97.9 F 87 17 93/60 97
11/01/24 03:00 11/01/24 07:45 11/01/24 07:45 11/01/24 07:45 11/01/24 07:48
I&O
10/31/24 11/01/24 11/02/24
06:59 06:59 06:59
Output Total 182 / 182 700 / 700
Balance -1825 / -1825 -700 / -700
--- NOTE | 2024-11-01 09:25 | W.PN.NEPH.PH ---
Today's Communication / Plan
-
follow labs
Assessment/Plan
-
74-year-old male complaining of watery brown diarrhea since 10/20 up to 8-10 times per day he states on 10/21 and 10/22 he developed a fever with Tmax of 102.5. He was on Ceftin from 09/21-2023 after clot removal from right ureter postop
UVJ stone removal. He had additional procedure on 10/11 status post cystoscopy right ureteroscopy with ureteral biopsy and fulguration, right ureteroscopy with complex laser lithotripsy, stone extraction and stent placement possible preop ABX.
recent admission 09/18 - 09/21/2024 status post obstructing right UVJ stone removal with clots in ureter stent was placed for additional stone removal October 11.
other past medical history includes CKD stage IIIb and follows with Dr. Valle , BPH, gout, hyperaldosteronism, biliopancreatic diversion with duodenal switch and Choledochoduodenostomy for weight loss in 2008 at [facility],
sleep apnea/CPAP, cervical fusion, ex-smoker, multiple renal calculi left and right with recent removals September 2024.
renal consultation for acute and chronic kidney disease will baseline creatinine 1.7 and acute metabolic acidosis
impression:
acute on chronic kidney disease stage IIIB the baseline creatinine 1.7 with admitting creatinine of 2.2.
Acute metabolic acidosis=Anion gap plus a Non gap metabolic acidosis.
History of recent renal calculi calcium oxalate stones>with recent antibiotic use
History of hyper Fuad.
Acute diarrhea
acute hypocalcemia/hyponatremia
ureteral stent
plan:
continue IVF
keep MAP>65
wean levophed as allowed
await labs, replete Calcium
check phos, lactate
critical care time 31 minutes
-
-
Date of Service: November 01, 2024
CC / HPI / ROS
-
Chief Complaint:
ASHLEY
History of Present Illness:
ASHLEY/Cr down to 2.0
Calcium low 6
acidosis persists 11
Na up to 133
BP low on levophed
critically ill
Review of Systems:
no CP/SOB
Labs
-
Labs:
WBC 6.5 10^3/uL (4.8-10.8) 11/01/24 02:46
RBC 2.36 10^6/uL (4.70-6.10) L 11/01/24 02:46
Hgb 7.5 g/dL (13.0-18.0) L 11/01/24 02:46
Hct 23.5 % (39.0-52.0) L 11/01/24 02:46
Plt Count 260 10^3/uL (130-400) 11/01/24 02:46
eGFR 34.81 11/01/24 02:46
Albumin 2.7 g/dl (3.5-5.0) L 11/01/24 02:46
Physical Exam
-
Vital Signs:
Vital Signs
Temp Pulse Resp BP Pulse Ox
97.6 F 85 16 100/63 97
11/01/24 07:05 11/01/24 09:15 11/01/24 09:15 11/01/24 09:15 11/01/24 09:15
Cardiovascular:: Regular rate and rhythm
Respiratory:: Bilateral: Coarse
Lung Excursion:: Normal
Abdomen:: Nontender and Soft
Bowel Sounds:: Normal
Extremity Edema:: None: Bilateral:
[2024-11-01 10:52] LABS: Lactic Acid < 0.5 mmol/L (0.7-2.0)
[2024-11-01 11:12] LABS: Blood Urea Nitrogen 50 mg/dl (9-20); Calcium 6.8 mg/dl (8.4-10.2); Carbon Dioxide 10 mmol/L (22-30); Chloride 108 mmol/L (98-107); Estimated Creatinine Clearance 34 ml/min; Glucose 76 mg/dl (70-99); Phosphorus 2.5 mg/dl (2.5-4.5); Potassium 3.7 mmol/L (3.5-5.1); Sodium 134 mmol/L (135-145); eGFR 37.02
[2024-11-01 11:14] LABS: Procalcitonin 17.96 ng/ml (0.0-0.25)
[2024-11-01 11:18] LABS: Vitamin D, 25-OH*** 22.7 ng/mL (30-80)
--- NOTE | 2024-11-01 12:45 | PTCARENOTE ---
Rec'd pt this AM. Updated Dr. Doe via TT pt is now on Levo, titrated to 6mcg. asymptomatic. Pt OOB x1 to bathroom. no BM. tolerating diet.
--- NOTE | 2024-11-01 16:22 | VATNOTE ---
Called to assess left arm Levophed infiltrate 5cm x 3cm area of discoloration treated with phentolamine 5mg/ml in a circular pattern. left arm elevated and heat applied will continue to monitor
[2024-11-01] MEDS: REGITINE 10 ML SC (16:28)
[2024-11-01] MEDS: REGITINE 10 MG SC (16:28)
--- NOTE | 2024-11-01 17:04 | CM ---
Patient receiving Levophed gtt, IV Abx, IVF. Low resdue diet. PT/OT recommend HH.
Spoke with patient who resides with his in a 2 story home with 3 MARA.
The patient states he was independent at baseline until 10/20/24 when he became ill, was not eating or drinking, and was 'weak and disoriented due to fluid loss'.
He spent most of his time since 10/20 in his recliner, was using his RW to ambulate and had balance issues.
DME - [facility]W
No prior VN.
Prior [facility].
Prior [facility].
PCP - Ryan Gonzalez
Pharmacy - [facility]
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
Plan home.
[2024-11-01] MEDS: ZYLOPRIM 300 MG PO (17:15)
[2024-11-01] MEDS: ASPIR LOW (ENTERIC COATED) 81 MG PO (17:15)
[2024-11-01] MEDS: TUMS EX (EXTRA STRENGTH) CHEWABLE TABLET 600 MG PO (20:13)
[2024-11-01] MEDS: MELATONIN PO (23:07)
[2024-11-01] MEDS: NSS IV (23:11)
[2024-11-02] VITALS (59 sets, daily range): BP systolic 78–129; BP diastolic 48–110; BMI 27.6
[2024-11-02] MEDS: MELATONIN PO (01:28)
--- NOTE | 2024-11-02 01:29 | PTCARENOTE ---
Levo gtt currently at 8mcg/min. BP 90/57 MAP 69. Pt asymptomatic. 2LNC applied for SaO2 86% on RA while asleep.
[2024-11-02] MEDS: ZOSYN 50 IV ×4 (04:55→23:53)
[2024-11-02 05:23] LABS: Hematocrit 25.6 % (39.0-52.0); Hemoglobin 7.8 g/dL (13.0-18.0); Mean Corp Hgb Conc. 30.5 g/dL (33.0-37.0); Mean Corpuscular Hgb 31.2 pg (27.0-31.0); Mean Corpuscular Volume 102.4 fL (80.0-94.0); Mean Platelet Volume 9.6 fL (7.4-10.4); Platelet Count 305 10^3/uL (130-400); Red Cell Dist. Width 17.9 % (11.5-14.5)
[2024-11-02] MEDS: NSS 1000 IV ×2 (06:29→13:21)
[2024-11-02 06:42] LABS: Blood Urea Nitrogen 42 mg/dl (9-20); Calcium 7.2 mg/dl (8.4-10.2); Carbon Dioxide 12 mmol/L (22-30); Chloride 110 mmol/L (98-107); Estimated Creatinine Clearance 34 ml/min; Glucose 114 mg/dl (70-99); Iron 60 ug/dl (49-181); Percent Saturation 46 % (20-50); Potassium 3.9 mmol/L (3.5-5.1); Sodium 135 mmol/L (135-145); Total Iron Binding Capacity 128 ug/dl (261-462); eGFR 37.02
[2024-11-02 06:58] LABS: Folate > 20.0 ng/ml (2.76-20); Vitamin B12 > 1000 pg/ml (239-931)
[2024-11-02] MEDS: LEVOPHED 250 IV ×2 (07:19→16:25)
--- NOTE | 2024-11-02 08:41 | W.PN.HOSP.TC ---
Today's Communication/Plan
-
see bold
Assessment / Plan
Assessment / Plan
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
ongoing severe diarrhea since 10/20 with intermittent fevers. No abdominal pain or vomiting.
#Bandemia unclear etiology concern for infectious diarrhea
Persistent watery brown diarrhea 10/20�current total 11 days with fever on 10/21- 10/22 Tmax 102.5
Ceftin 09/21 to 09/26 post of fever cysto with stone removal and stent
WBC 6.8, bands 11%
C. difficile negative, stool cultures pending
Continue IV Zosyn
#Metabolic acidosis 2/2 diarrheal losses/decreased oral intake
#ASHLEY on CKD 3B 2/2 diarrheal losses/decreased oral intake
-Hold Farxiga
-Hold eplerenone 25 mg p.o. every 48 H-patient has not taken since 10/28/2024
-Appreciate nephrology input, continue management as per nephrology
-Trend creatinine, no nephrotoxic drugs/NSAIDs
# Multifactorial shock, likely secondary to sepsis and hypovolemia from diarrhea
#Hx HTN�benign
-Hold eplerenone 25 mg p.o. every 48 H-patient has not taken since 10/28/2024
-Hold Farxiga, hold Flomax
-PICC inserted, continue Levophed for goal MAP greater than 65
#Severe HYPOCALCEMIA
#Vitamin D deficiency
Secondary to malabsorption and Prolia injection on 10/01
No reported muscle cramps or twitching
Improving, continue calcium & vitamin D supplements
#Hypokalemia secondary to diarrhea
Repleted and resolved
#Hyponatremia
Mild, monitor
# Obstructing right UVJ stones S/p cystoscopy and stone extraction by Dr. Hardy on 09/19/2024.
#History of multiple renal stone extraction in the past
Patient also had large volume dense clots in the ureter with difficult visualization. Stent was placed. 09/19/2024
Patient was treated for postop fever with Ceftin x 7 days starting on 09/19/2024
# Hyperaldosteronism
-Hold eplerenone secondary to hypotension
#Stage II pressure injury on buttock, present upon admission
Continue wound care
#Chronic bilateral lower extremity edema
Ordered TEDS
# Enlarged prostate-continue Flomax
# History of gout-continue allopurinol
# History of biliopancreatic diversion duodenal switch with choledochoduodenostomy 2008 for weight loss at [facility] care [facility]( [facility])
# Sleep apnea-continue CPAP
Wears nasal pleased with fluctuating pressures up to 20
# History of cervical fusion
# Ex-smoker
DVT prophylaxis�subcu heparin
Full code
Total time spent to see the patient on the floor, examine the patient, review data and lab results, discuss treatment plan with patient, nursing staff around 50 minutes.
Physical Exam
General: No acute distress
HEENT: Normocephalic, Atraumatic, EOMI, MMM
Respiratory: Clear to Auscultation bilaterally
Cardiac: Normal S1/S2, Regular Rate and Rhythm
GI: Soft, Nontender, Nondistended, Normal Bowel Sounds
Extremities: No Clubbing, Cyanosis
Bilateral lower extremity edema noted
Neuro: Nonfocal/Grossly Intact
Psych: Calm, Cooperative
Derm: Pressure injury on buttock noted
Anticipated Discharge: > 48 hours
Subjective/Interval History
-
Date of Service: November 01, 2024
Patient continues to have diarrhea. He has abdominal cramping with his bowel movements. Denies chest pain, shortness of breath. No fever, no vomiting.
Objective Data
-
Labs:
Laboratory Results
11/01/24
10:15
Sodium 134 L
Potassium 3.7
Chloride 108 H
Carbon Dioxide 10 L*
BUN 50 H
Creatinine 1.9 H
Glucose 76
Calcium 6.8 L*
Vital Signs:
Vital Signs
Temp Pulse Resp BP Pulse Ox
97.9 F 85 17 101/67 96
11/01/24 11:05 11/01/24 16:15 11/01/24 16:15 11/01/24 16:15 11/01/24 13:00
I&O
10/31/24 11/01/24 11/02/24
06:59 06:59 06:59
Output Total 182 / 1824 700 / 700
Balance -1825 / -1825 -700 / -700
--- NOTE | 2024-11-02 09:16 | PN.CDI ---
CDI
- -
CDI:
Physician Documentation Request
Admit Date: 10/31/24 13:37
Dear Doctor Do,
Patient admitted with diarrhea.
1/2 Hospitalist PN: 'Symptomatic HYPOTENSION secondary to diarrheal losses/decreased oral intake...Continue Levophed for goal MAP greater than 65'
Selected Entries
11/01/24
06:38 11/01/24
07:00 11/01/24
07:48
CURRENT dosage in mcg/min 2 4 4
Mean Arterial Pressure 64 50
Rate in ml/hr 7.5 15 15
11/01/24
08:08 11/01/24
08:38
CURRENT dosage in mcg/min 5 6
Mean Arterial Pressure 66 64
Rate in ml/hr 18.8 22.5
Please clarify which of the following is the most likely etiology of the above symptoms and treatment rendered:
Hypovolemic shock - indicate if due to surgery, trauma or other etiology
Shock, unknown type
Hypotension - indicate type/etiology, such as idiopathic, neurogenic or orthostatic, post-procedural, postoperative, due to hemodialysis, chronic, drug induced (indicate drug), etc.
Hypotension - unknown type/etiology
Other
Unable to determine
Use of terms such as suspected, likely, concern for, or probable (associated with a specific diagnosis that is being evaluated, monitored, or treated as if it exists) are acceptable and can be coded in the inpatient setting, when documented at the
time of discharge.
Thank you,
Itzel Garcia RN, BSN
CDI Specialist
Available via [place] text
Please use your independent medical judgment in providing your response.
--- NOTE | 2024-11-02 09:23 | PN.CDI ---
CDI
- -
CDI:
Physician Documentation Request
Admit Date: 10/31/24 13:37
Dear Doctor Do,
Patient admitted for diarrhea.
Selected Entries
11/01/24
01:08
Pressure injury appearance [Present on admission Buttock] [place] wound bed
Pressure injury stage [Present on admission Buttock] Stage 2
Surrounding Skin - [Present on admission Buttock] Local erythema
Physician documentation of the type and location of wounds is required for compliant documentation. Based on the above clinical findings and your assessment, please provide the following in your progress note:
1. Location of the ulcer/wound, including laterality.
2. Type (etiology) of ulcer/wound:
- Diabetic ulcer
- Arterial (ischemic) ulcer
- Traumatic wound
- Venous stasis ulcer
- Pressure (decubitus) ulcer
- Non-healing surgical wound
- Other
- Unable to determine
3. For a non-pressure ulcer, please indicate the depth/severity:
- Limited to the breakdown of skin
- With fat layer exposed
- With necrosis of muscle
- With necrosis of bone
- Other
- Unable to determine
4. If a pressure ulcer, please also include the stage* of the ulcer:
- Stage 1 - Skin intact, non-blanchable redness
- Stage 2 - Partial thickness loss of dermis, includes intact or open blister
- Stage 3 - Full thickness tissue not including bone, tendon or muscle
- Stage 4 - Full thickness tissue loss, including exposed bone, tendon or muscle
- Unstageable - Full thickness loss in which the base of the ulcer is covered by slough (yellow, chandler, bee, green or brown) and/or eschar (chandler, brown or black) in the wound bed.
- Unable to determine
Use of terms such as suspected, likely, concern for, or probable (associated with a specific diagnosis that is being evaluated, monitored, or treated as if it exists) are acceptable and can be coded in the inpatient setting, when documented at the
time of discharge.
Thank you,
Itzel Garcia RN, BSN
CDI Specialist
Available via [place] text
Please use your independent medical judgment in providing your response.
*Source: National Pressure Ulcer Advisory Panel (NPUAP)
[2024-11-02] MEDS: HEPARIN 5000 UNITS SC ×2 (09:53→21:43)
[2024-11-02] MEDS: VISBIOME 1 CAP PO (09:53)
[2024-11-02] MEDS: DRISDOL (VITAMIN D2) 300000 UNITS PO ×2 (09:54→21:42)
[2024-11-02] MEDS: THERAGRAN 1 TABLET PO ×3 (09:54→21:46)
[2024-11-02] MEDS: OSCAL CAL 500 500 MG PO ×3 (09:54→21:46)
[2024-11-02] MEDS: CALCIUM GLUCONATE 100 IV ×2 (09:59→21:44)
--- NOTE | 2024-11-02 11:28 | VATNOTE ---
Site of levophed infiltrate checked at this time. No swelling or discoloration noted. Pt denies any discomfort. Infiltrate is considered resolved at this time.
--- NOTE | 2024-11-02 11:42 | CM ---
CM following re: discharge planning.
Reviewed pt's chart, met with pt.
PT and OT evaluations noted - home PT/OT recommended. CM discussed it with the pt and pt politely declined VN services. pt stated he has a private therapist at a gym and he trusts him. Pt made it very clear he will not accept VN services upon the
discharge. Pt asked not to offer VN services again.
Per chart review, pt currently on 2L NC, 86% on RA while asleep. Pt has no home Oxygen.
D/C plan: per pt's strong request, home with resumptions of private physical therapy 3 times per week at a gym.
CM will follow with discharge plan updates as hospitalization progresses
--- NOTE | 2024-11-02 12:06 | VATNOTE ---
PICC in good position with tip in the SVC per radiology report. PCN notified line is OK to use, instructed to change all IV tubing prior to connecting to PICC.
--- NOTE | 2024-11-02 14:46 | W.PN.NEPH.PH ---
Today's Communication / Plan
-
change IVF to bicarb
Assessment/Plan
-
74-year-old male complaining of watery brown diarrhea since 10/20 up to 8-10 times per day he states on 10/21 and 10/22 he developed a fever with Tmax of 102.5. He was on Ceftin from 09/21-2023 after clot removal from right ureter postop
UVJ stone removal. He had additional procedure on 10/11 status post cystoscopy right ureteroscopy with ureteral biopsy and fulguration, right ureteroscopy with complex laser lithotripsy, stone extraction and stent placement possible preop ABX.
recent admission 09/18 - 09/21/2024 status post obstructing right UVJ stone removal with clots in ureter stent was placed for additional stone removal October 11.
other past medical history includes CKD stage IIIb and follows with Dr. Valle , BPH, gout, hyperaldosteronism, biliopancreatic diversion with duodenal switch and Choledochoduodenostomy for weight loss in 2008 at [facility],
sleep apnea/CPAP, cervical fusion, ex-smoker, multiple renal calculi left and right with recent removals September 2024.
renal consultation for acute and chronic kidney disease will baseline creatinine 1.7 and acute metabolic acidosis
impression:
acute on chronic kidney disease stage IIIB the baseline creatinine 1.7 with admitting creatinine of 2.2.
Acute metabolic acidosis=Anion gap plus a Non gap metabolic acidosis.
History of recent renal calculi calcium oxalate stones>with recent antibiotic use
History of hyper Fuad.
Acute diarrhea
acute hypocalcemia/hyponatremia
ureteral stent
plan:
ASHLEY-cr improving to 1.9
hypocalcemia is better,
pt reports prolia injection few weeks ago and not able to take PO yunier, vit D is likely is the reason for severe hypocalcemia
now that yunier is better will change iVF to 1/2NS with bicarb
wean pressor to keep MAP>65
resume calcitriol, cont yunier and D2
avoid nephrotoxins
labs in am
d/w pt and family
d/w nursing
-
-
Date of Service: November 02, 2024
CC / HPI / ROS
-
Chief Complaint:
ASHLEY
History of Present Illness:
ASHLEY/Cr down to 1.9
Calcium better at 7.2
acidosis persists 12
Na up to 135
BP low on levophed
critically ill
Review of Systems:
no CP/SOB
diarrhea 2 BM today
tolerating po
Labs
-
Labs:
WBC 7.0 10^3/uL (4.8-10.8) 11/02/24 05:09
RBC 2.50 10^6/uL (4.70-6.10) L 11/02/24 05:09
Hgb 7.8 g/dL (13.0-18.0) L 11/02/24 05:09
Hct 25.6 % (39.0-52.0) L 11/02/24 05:09
Plt Count 305 10^3/uL (130-400) 11/02/24 05:09
Sodium 135 mmol/L (135-145) 11/02/24 05:09
Potassium 3.9 mmol/L (3.5-5.1) 11/02/24 05:09
Chloride 110 mmol/L (98-107) H 11/02/24 05:09
Carbon Dioxide 12 mmol/L (22-30) L* 11/02/24 05:09
BUN 42 mg/dl (9-20) H 11/02/24 05:09
Creatinine 1.9 mg/dL (0.7-1.3) H 11/02/24 05:09
eGFR 37.02 11/02/24 05:09
Glucose 114 mg/dl (70-99) H 11/02/24 05:09
Calcium 7.2 mg/dl (8.4-10.2) L 11/02/24 05:09
Phosphorus 2.5 mg/dl (2.5-4.5) 11/01/24 10:15
Albumin 2.7 g/dl (3.5-5.0) L 11/01/24 02:46
Physical Exam
-
Vital Signs:
Vital Signs
Temp Pulse Resp BP Pulse Ox
97.6 F 94 26 115/72 98
11/02/24 11:00 11/02/24 13:15 11/02/24 13:15 11/02/24 13:15 11/02/24 13:15
Cardiovascular:: Regular rate and rhythm
Respiratory:: Bilateral: CTA
Lung Excursion:: Normal
Abdomen:: Nontender and Soft
Extremity Edema:: +1: Bilateral: (chronic)
Becerra Catheter: No
Other Findings::
chr erythema in LE per pt
[2024-11-02] MEDS: SODIUM BICARBONATE 1075 MEQ IV (15:25)
--- NOTE | 2024-11-02 17:40 | PTCARENOTE ---
Pt presents as assessed. Aox3. IVT placed PICC line; okay to use after placement confirmed by XR. Levo infusing and weaned as tolerated per order for map over 65. Incontinent of multiple liquid bowel movements; ca care completed. Pt and
updated on plan of care. Able to make needs known, call edmond within reach.
--- NOTE | 2024-11-02 18:34 | PTCARENOTE ---
Pt's MAP and BP stable; levo weaned off per protocol.
[2024-11-02] MEDS: ASPIR LOW (ENTERIC COATED) 81 MG PO (18:35)
[2024-11-02] MEDS: ZYLOPRIM 300 MG PO (18:35)
[2024-11-02 20:46] LABS: Blood Urea Nitrogen 31 mg/dl (9-20); Calcium 6.8 mg/dl (8.4-10.2); Carbon Dioxide 14 mmol/L (22-30); Chloride 114 mmol/L (98-107); Estimated Creatinine Clearance 40 ml/min; Glucose 112 mg/dl (70-99); Potassium 3.2 mmol/L (3.5-5.1); Sodium 137 mmol/L (135-145)
[2024-11-02] MEDS: ROCALTROL 2 MCG PO (21:43)
[2024-11-02] MEDS: KCL 40 MEQ PO (21:43)
[2024-11-02] MEDS: LR 1000 IV (21:45)
[2024-11-02] MEDS: MELATONIN 10 MG PO (23:53)
[2024-11-02] MEDS: TUMS EX (EXTRA STRENGTH) CHEWABLE TABLET 600 MG PO (23:53)
[2024-11-03] VITALS (18 sets, daily range): BP systolic 84–116; BP diastolic 53–85; BMI 28.3
--- NOTE | 2024-11-03 02:53 | PTCARENOTE ---
Assumed care of pt from Cait COONEY. Pt AAOx3. Able to make needs known/rings appropriately. NSR w 1st degree AV block & frequent PVCs. +1 edema to BLLE. Lungs diminished on 2LNC. Pt wears CPAP @HS at home, however is refusing it while he is here.
Round/obese belly. Pt with several episodes of diarrhea. C/o poor appetite and indigestion. PRN tums given for indigestion. C/o pain with urination d/t recent stent placement in R ureter. Stage 2 pressure sores on buttocks. Cleaned and covered with
silicone border foam. OOB to BSC with assist x1 and RW. L dual lumen PICC line with LR@125ml/hr. CHG bath done. Off levo gtt since 11/02/24 18:34. BP stable, 94/60. MAP 68. Care ongoing.
[2024-11-03] MEDS: ZOSYN 50 IV ×2 (05:14→11:08)
[2024-11-03] MEDS: TUMS EX (EXTRA STRENGTH) CHEWABLE TABLET 600 MG PO (05:14)
[2024-11-03 05:26] LABS: Blood Urea Nitrogen 28 mg/dl (9-20); Calcium 7.5 mg/dl (8.4-10.2); Carbon Dioxide 13 mmol/L (22-30); Chloride 116 mmol/L (98-107); Estimated Creatinine Clearance 40 ml/min; Glucose 89 mg/dl (70-99); Potassium 3.5 mmol/L (3.5-5.1); Sodium 138 mmol/L (135-145)
--- NOTE | 2024-11-03 05:58 | W.PN.UPDATE ---
Update Note
Progress Note Update
2099 ca dropped to 6.9 (was 7.2) K 3.2 --> k repleted
advised RN to reach out to nephro workers compensation manager regarding drop in ca s/p ivf with bicarb
nephro workers compensation manager advised to stop ivf with bicarb and start LR instead
[2024-11-03 06:03] LABS: Hematocrit 21.6 % (39.0-52.0); Hemoglobin 6.7 g/dL (13.0-18.0); Mean Corpuscular Hgb 31.6 pg (27.0-31.0); Mean Corpuscular Volume 101.9 fL (80.0-94.0); Mean Platelet Volume 9.9 fL (7.4-10.4); Platelet Count 228 10^3/uL (130-400); Red Blood Cell Count 2.12 10^6/uL (4.70-6.10); Red Cell Dist. Width 17.9 % (11.5-14.5); White Blood Cell Count 5.3 10^3/uL (4.8-10.8)
--- NOTE | 2024-11-03 06:36 | PTCARENOTE ---
critical hgb this am - 6.7 ACADEMIC AFFAIRS SPECIALIST Asya Neumann notified. Repeat H&H and type&screen ordered. IVF on hold @ 06:35 to ensure accurate lab results.
[2024-11-03 07:19] LABS: Hemoglobin 6.8 g/dL (13.0-18.0)
--- NOTE | 2024-11-03 07:27 | W.PN.HOSP.TC ---
Today's Communication/Plan
-
see bold
Assessment / Plan
Assessment / Plan
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
ongoing severe diarrhea since 10/20 with intermittent fevers. No abdominal pain or vomiting.
#Bandemia unclear etiology concern for infectious diarrhea
#Acute diarrhea
Persistent watery brown diarrhea 10/20�current total 11 days with fever on 10/21- 10/22 Tmax 102.5
Ceftin 09/21 to 09/26 post of fever cysto with stone removal and stent
WBC 6.8, bands 11%, pancolitis on CT scanning
C. difficile negative, norovirus neg, stool cultures pending
Seen by GI, recommend starting Imodium scheduled, Questran twice daily
Continue IV Zosyn
#Pancreatic cyst
Follow-up with GI in the office
#Metabolic acidosis 2/2 diarrheal losses/decreased oral intake
#ASHLEY on CKD 3B 2/2 diarrheal losses/decreased oral intake
-Hold Farxiga
-Hold eplerenone 25 mg p.o. every 48 H-patient has not taken since 10/28/2024
-Appreciate nephrology input, continue management as per nephrology
-Creatinine improving at 1.6 today, was 2.2 upon admission
-Trend creatinine, no nephrotoxic drugs/NSAIDs
#Multifactorial shock, likely secondary to sepsis and hypovolemia from diarrhea
#Hx HTN�benign
-Hold eplerenone 25 mg p.o. every 48 H-patient has not taken since 10/28/2024
-Hold Farxiga, hold Flomax
-PICC inserted, continue Levophed for goal MAP greater than 65
#Right upper extremity edema
Check RUE Dopplers
#Severe HYPOCALCEMIA
#Vitamin D deficiency
Secondary to malabsorption and Prolia injection on 10/01
No reported muscle cramps or twitching
Improving, continue calcium & vitamin D supplements
#Acute on chronic anemia
Iron studies are adequate, B12/folic acid levels normal
Hemoglobin 6.8 today, down from 8.4 upon admission
Transfuse 1 unit packed red blood cells 11/03
# Hyperaldosteronism
Hold eplerenone secondary to hypotension
#Hypokalemia secondary to diarrhea
Repleted and resolved
#Hyponatremia
Mild, monitor
# Obstructing right UVJ stones S/p cystoscopy and stone extraction by Dr. Hardy on 09/19/2024.
#History of multiple renal stone extraction in the past
Patient also had large volume dense clots in the ureter with difficult visualization. Stent was placed. 09/19/2024
Patient was treated for postop fever with Ceftin x 7 days starting on 09/19/2024
#Stage II pressure injury on buttock, present upon admission
Continue wound care
#Chronic bilateral lower extremity edema
Ordered TEDS
# Enlarged prostate-continue Flomax
# History of gout-continue allopurinol
# History of biliopancreatic diversion duodenal switch with choledochoduodenostomy 2008 for weight loss at [facility]( Now [facility] of [facility] Bariatric center)
# Sleep apnea-continue CPAP
Wears nasal pleased with fluctuating pressures up to 20
# History of cervical fusion
# Ex-smoker
DVT prophylaxis�subcu heparin
Full code
Total time spent to see the patient on the floor, examine the patient, review data and lab results, discuss treatment plan with patient, nursing staff around 53 minutes.
Physical Exam
General: No acute distress
HEENT: Normocephalic, Atraumatic, EOMI, MMM
Respiratory: Clear to Auscultation bilaterally
Cardiac: Normal S1/S2, Regular Rate and Rhythm
GI: Soft, Nontender, Nondistended, Normal Bowel Sounds
Extremities: No Clubbing, Cyanosis
Bilateral lower extremity edema noted
Neuro: Nonfocal/Grossly Intact
Psych: Calm, Cooperative
Derm: Pressure injury on buttock noted
Anticipated Discharge: > 48 hours
Subjective/Interval History
-
Date of Service: November 03, 2024
Patient continues to have diarrhea. He has associated abdominal cramping during his bowel movements. Denies chest pain, denies shortness of breath. No fever, no vomiting.
Objective Data
-
Labs:
Laboratory Results
11/02/24 11/03/24 11/03/24
20:18 04:21 06:49
WBC 5.3
Hgb 6.7 L* 6.8 L*
Hct 21.6 L 22.0 L
Plt Count 228 D
Sodium 137 138
Potassium 3.2 L 3.5
Chloride 114 H 116 H
Carbon Dioxide 14 L* 13 L*
BUN 31 H 28 H
Creatinine 1.6 H 1.6 H
Glucose 112 H 89
Calcium 6.8 L* 7.5 L
Vital Signs:
Vital Signs
Temp Pulse Resp BP Pulse Ox
97.8 F 71 14 89/54 98
11/03/24 03:04 11/03/24 06:00 11/03/24 06:00 11/03/24 06:00 11/03/24 04:00
I&O
11/02/24 11/03/24 11/04/24
06:59 06:59 06:59
Intake Total 2430 / 2430 2750 / 2750
Output Total 1525 / 1525 1999 / 1999
Balance 905 / 905 750 / 750
[2024-11-03 08:08] LABS: Iron 64 ug/dl (49-181)
[2024-11-03 08:12] LABS: Percent Saturation 52 % (20-50); Total Iron Binding Capacity 122 ug/dl (261-462)
--- NOTE | 2024-11-03 08:13 | CON.GI ---
Addendum entered and electronically signed by Dulce Dey Do, MD 11/03/24 13:06:
I saw and examined the patient.
The FOOD SERVICES COORDINATOR's note was reviewed and I agree with the note.
Comment: Kamar is a 74yo M with h/o gastric bypass with duodenal switch 2008 and CKD who was admitted for dehydration in setting of acute diarrhea. Recently several urologic interventions and was on abx in Aug 2024. Generally baseline 4BMs per
day. Now more frequent s/p abx use. Also reports fever. Vitals reviewed. Labs reviewed Hbg down to 6.8 with iron panel suggestive of anemia of chronic disease. FOBT is negative. CTAP reviewed with pancolitis. Last Cscope was 2016
Impression
- Non bloody diarrhea and pancolitis on CT exam
Suspect infections (such as norovirus) or abx related
Other ddx includes microscopic colitis
- Fever
- CKD
- H/o gastric bypass duodenal switch 2008
- Anemia of chronic disease
- H/o diverticulosis
- BPH
- UVP stone
Impression
- Unable to test for norovirus given lack of kits
- Repeat Cdiff given timing related to abx use
- Start loperamide ATC
- Add questran BID
- Monitor stool output
- C/w low residue diet
- May benefit from blood transfusion given anemia related to chronic disease. Fecal occult blood test neg per RN
- If does not improve consider flex sigm Tuesday with bx
- Will need OP FU on pancreatic cyst
Will follow with you.
Original Note:
Consultation
-
Date/Time Consultation Requested: 11/03/24729
Date/Time Consultation Performed: 11/03/24 0815
Requesting Provider: Von Doe MD
Performing Provider: EVERETT Castro, Dulce Doe MD
Reason for Consultation: diarrhea
Medical History
Chief Complaint / HPI
Chief Complaint: diarrhea
History of Present Illness:
Pt is a 74yo with hx CKD, sleep apnea, hyperparathyroidism, hyperaldosteronism, obesity with prior gastric bypass- duodenal switch 2008, BPH, colon polyp, umbilical hernia repair, multiple ortho surgeries last with shoulder several months ago and
admission in August with obstructing UVP stone with removal with clots and stent placement and additional stone removal 10/11. Pt was on Ceftin 09/21-09/26. Pt states with hx duodenal switch he will have about 4 stool daily that are on the loose
side but stable with use of fiber supplement. On 10/20 he began with diarrhea. Initially 2-3 times on 10/20 then had fever 10/21 and 10/22 with increase to 10-12 stools daily since that time. On admission on 10/31 he was noted with hypotension
with need for initial pressors, acute on chronic CKD, anemia with drop in hbg to 6.8, hyponatremia, persistent acidosis, marked elevated procal to 17.96, CT consistent with moderate acute pancolitis. Pt has been on Zosyn since admission with neg
c-diff, with stool cx pending.
Pt admits to continued loose stools and increased GERD. He denies dysphagia, nausea, vomiting, abdominal pain, diarrhea, constipation, blood or black in stool.
02/2017-[facility] - colonoscopy poor prep, diverticulosis
05/2013- [facility] - colonoscopy -diverticulosis
Past Medical History
Past Medical History: HTN, Renal Failure (CKD) and Other (DDD, hyperparathyroidism, hyperaldosteronism, nephrolithiasis, POLLY, colon polyps, obesity with hx gastric bypass, anemia, lactose intolerance, retinal detachment, gluten intolerance, vitamin
D deficiency, acidosis, BPH,)
Past Surgical History: Appendectomy, Orthopedic (discectomy, cervical fusion, rotator cuff, radial ORIF, carpel tunnel, tiger finger surgery) and Other (hernia repair , gastric bypass- duodenal switch 2008, cataract surgery )
Social History
Tobacco: Former Smoker (quit 50 years ago)
Alcohol: None
Drug: None
Personal:
Living: With Family
Employment: Employed
Family History
Family History: Other (no family hx GI cancer, liver or pancreatic issue )
Allergies / Home Medications
Allergy/AdvReac Type Severity Reaction Status Date / Time
oxycodone Allergy Intermediate Itching Verified 10/31/24 08:53
gluten Allergy diarrhea Verified 10/31/24 08:53
and chills
NSAIDS (Non-Steroidal Allergy KIDNEY Verified 10/31/24 08:53
Anti-Inflamma DISEASE
thiopental Allergy Agitation Verified 10/31/24 08:53
�Medication �Instructions �Recorded
allopurinol 300 mg tablet 300 mg PO QPM Gout 05/12/09
aspirin 81 mg tablet,delayed 81 mg PO QPM Blood Clot 10/21/23
release Prevention/Tx
calcitriol 0.5 mcg capsule 2 mcg PO BID Kidney Disease 10/21/23
coenzyme Q10 100 mg capsule (Co 100 mg PO QPM Supplement 10/21/23
Q-10)
dapagliflozin propanediol 10 mg 10 mg PO DAILY Kidney Disease 10/21/23
tablet (Farxiga)
denosumab 60 mg/mL subcutaneous 60 mg SC [id number] osteoporosis 10/21/23
syringe (Prolia)
ergocalciferol (vitamin D2) 1,250 7,500 mcg PO BID Supplement 10/21/23
mcg (50,000 unit) capsule
tamsulosin 0.4 mg capsule 0.4 mg PO QPM Urinary Issue 10/21/23
eplerenone 25 mg tablet (Inspra) 25 mg PO Q48H@1999 Kidney Disease 02/08/24
fluticasone propionate 50 1 spray intranasal DAILYPRN PRN 02/08/24
mcg/actuation nasal nasal congestion
spray,suspension
potassium citrate 99 mg capsule 99 mg PO MEALS Supplement 02/08/24
calcium carbonate 500 mg PO TID Supplement 06/26/24
melatonin 10 mg tablet 10 mg PO HS Supplement 06/26/24
Lactobac no.2-Bifidobac no.1-S. 1 cap PO DAILY Supplement 09/18/24
thermo 112.5 billion cell capsule
(Visbiome)
therapeutic multivitamin 1 tab PO TID Supplement 09/18/24
vitamin A palmitate 7,500 mcg 7,500 mcg PO HS Supplement 09/18/24
(25,000 unit) capsule
iron 20 mg PO TID Supplement 10/09/24
magnesium 250 mg tablet 250 mg PO DAILY Supplement 10/09/24
zinc acetate 50 mg (zinc) capsule 50 mg PO DAILY Supplement 10/09/24
Review of Systems
-
History Source: Patient
Constitutional: Reports Fever (10/21-10/22 )
EENT: Reports No Symptoms
Respiratory: Reports No Symptoms
Cardiac: Reports No Symptoms
Abdomen/GI: Reports Abdominal Pain (crampy pain prior to BM) and Diarrhea (10-12 stool daily with prior 4 before onset )
: Reports No Symptoms
Musculoskeletal: Reports No Symptoms
Skin: Reports No Symptoms
Neurological: Reports Weakness
Endocrine: Reports No Symptoms
Vital Signs
Temp Pulse Resp BP Pulse Ox
97.8 F 71 14 89/54 98
11/03/24 03:04 11/03/24 06:00 11/03/24 06:00 11/03/24 06:00 11/03/24 04:00
Physical Exam
Exam
General: Well Developed, Well Nourished and No Apparent Distress
HEENT: Normocephalic and Anicteric
Respiratory: Clear
Cardiac: Regular Rhythm
GI: Soft, Non Tender and Non Distended
Rectal: Other (brown liquid stool in canister )
Musculoskeletal: No Clubbing and No Cyanosis
Skin: Warm and Dry
Neuro: Awake, Alert and AO x 3
Psych: Calm
Results
WBC 5.3 10^3/uL (4.8-10.8) 11/03/24 04:21
Hgb 6.8 g/dL (13.0-18.0) L* 11/03/24 06:49
Hct 22.0 % (39.0-52.0) L 11/03/24 06:49
MCV 101.9 fL (80.0-94.0) H 11/03/24 04:21
Plt Count 228 10^3/uL (130-400) D 11/03/24 04:21
Absolute Neuts (auto) 5.6 10^3/uL (1.4-6.5) 11/01/24 02:46
Sodium 138 mmol/L (135-145) 11/03/24 04:21
Potassium 3.5 mmol/L (3.5-5.1) 11/03/24 04:21
Chloride 116 mmol/L (98-107) H 11/03/24 04:21
Carbon Dioxide 13 mmol/L (22-30) L* 11/03/24 04:21
BUN 28 mg/dl (9-20) H 11/03/24 04:21
Creatinine 1.6 mg/dL (0.7-1.3) H 11/03/24 04:21
Calcium 7.5 mg/dl (8.4-10.2) L 11/03/24 04:21
Total Bilirubin 0.7 mg/dl (0.2-1.3) 11/01/24 02:46
AST 25 U/L (17-59) 11/01/24 02:46
ALT 16 U/L (0-50) 11/01/24 02:46
Alkaline Phosphatase 82 U/L (38-126) 11/01/24 02:46
Diagnostic Image Results:
10/31/24 CT Abd/pelvis Wo Iv Cont
1. MODERATE ACUTE PANCOLITIS (probably an ACUTE INFECTIOUS COLITIS with C. difficile colitis a diagnostic possibility).
2. Moderate colonic diverticulosis.
3. Moderate to severe chronic bilateral renal disease.
4. Large number of bilateral nonobstructing intrarenal calculi.
5. Right double-J ureteral stent in place.
6. Previous cholecystectomy, choledochoduodenostomy, sleeve gastrectomy, and gastrojejunostomy.
7. 1.8 cm cyst in the uncinate process of the pancreas.
8. Chronic superior endplate fracture of L4.
9. Grade 1 anterolisthesis of L5 on S1 secondary to severe facet joint arthrosis.
Prior GI Procedures:
EGD: pt did not recall
Colonoscopy: 02/2017-[facility] - colonoscopy poor prep, diverticulosis
05/2013- [facility] - colonoscopy -diverticulosis
Assessment / Plan
-
Pt is a 74yo with hx CKD, sleep apnea, hyperparathyroidism, hyperaldosteronism, obesity with prior gastric bypass- duodenal switch 2008, BPH, colon polyp, umbilical hernia repair, multiple ortho surgeries last with shoulder several months ago and
admission in August with obstructing UVP stone with removal with clots and stent placement and additional stone removal 10/11. Pt was on Ceftin 09/21-09/26. Pt states with hx duodenal switch he will have about 4 stool daily that are on the loose
side but stable with use of fiber supplement. On 10/20 he began with diarrhea. Initially 2-3 times on 10/20 then had fever 10/21 and 10/22 with increase to 10-12 stools daily since that time. On admission on 10/31 he was noted with hypotension
with need for initial pressors, acute on chronic CKD, anemia with drop in hbg to 6.8, hyponatremia, persistent acidosis, marked elevated procal to 17.96, CT consistent with moderate acute pancolitis. Pt has been on Zosyn since admission with neg
c-diff, with stool cx pending.
-sudden onset of diarrhea since 10/20 10-12 stools per day
-hx chronic loose stool 3-4 per day since duodenal switch
-pancoltis on CT
-persistent hypotension
-acidosis
-acute on chronic CKD
-anemia
-hyponatremia
-hypocalcemia
-recent urologic stent/stone removal with abx use
-hx duodenal switch for wt loss 2008
other med problems:
-CKD
-sleep apnea
-hyperparathyroidism
-hyperaldosteronism
- BPH
- colon polyp
- umbilical hernia repair
- multiple ortho surgeries
PLAN:etiology of diarrhea related to infectious source with acute onset-- ? norovirus, vs other - initial c-diff neg other cx pending, post infectious IBS, current abx related vs other
pt with some chronic loose stool 3-4/day with hx duodenal switch
reviewed with labs unable to add norovirus as kits not available
recheck c-diff and await stool culture
if neg consider restart Imodium and Questran
if not improving consider flex sig
cont probiotics will increased to BID
cont low residue diet
maintain adequate perfusion with some persistent hypotension
cont to correct acidosis and electrolytes per renal
t/c change of abx may be adding to continued diarrhea
trend hgb t/c transfusion stools heme neg per staff this am - iron studies not c/w iron deficiency
-
-
Thank you for consultation and allowing me to participate in the patient's care. Please call the cotton farmworker GI physician during the after hours with any questions or concerns.
[2024-11-03] MEDS: VISBIOME 1 CAP PO ×2 (08:20→21:41)
[2024-11-03] MEDS: THERAGRAN 1 TABLET PO ×3 (08:20→21:42)
[2024-11-03] MEDS: ROCALTROL 2 MCG PO ×2 (08:20→21:42)
[2024-11-03] MEDS: DRISDOL (VITAMIN D2) 300000 UNITS PO ×2 (08:20→21:41)
[2024-11-03] MEDS: OSCAL CAL 500 500 MG PO ×3 (08:20→21:41)
[2024-11-03] MEDS: HEPARIN SC (08:22)
[2024-11-03] MEDS: LR 1000 IV ×2 (08:23→16:47)
[2024-11-03 09:32] LABS: Folate 11.3 ng/ml (2.76-20); Vitamin B12 > 1000 pg/ml (239-931)
--- NOTE | 2024-11-03 11:46 | W.PN.NEPH.PH ---
Today's Communication / Plan
-
cont LR, add po bicarb
prn IV yunier and k
Assessment/Plan
-
74-year-old male complaining of watery brown diarrhea since 10/20 up to 8-10 times per day he states on 10/21 and 10/22 he developed a fever with Tmax of 102.5. He was on Ceftin from 09/21-2023 after clot removal from right ureter postop
UVJ stone removal. He had additional procedure on 10/11 status post cystoscopy right ureteroscopy with ureteral biopsy and fulguration, right ureteroscopy with complex laser lithotripsy, stone extraction and stent placement possible preop ABX.
recent admission 09/18 - 09/21/2024 status post obstructing right UVJ stone removal with clots in ureter stent was placed for additional stone removal October 11.
other past medical history includes CKD stage IIIb and follows with Dr. Valle , BPH, gout, hyperaldosteronism, biliopancreatic diversion with duodenal switch and Choledochoduodenostomy for weight loss in 2008 at [facility],
sleep apnea/CPAP, cervical fusion, ex-smoker, multiple renal calculi left and right with recent removals September 2024.
renal consultation for acute and chronic kidney disease will baseline creatinine 1.7 and acute metabolic acidosis
impression:
Diarrhea-pancolitis on CT
acute on chronic kidney disease stage IIIB the baseline creatinine 1.7 with admitting creatinine of 2.2.
Acute metabolic acidosis=Anion gap plus a Non gap metabolic acidosis.
History of recent renal calculi calcium oxalate stones>with recent antibiotic use
History of hyper Fuad.
Acute diarrhea
acute hypocalcemia/hyponatremia
ureteral stent
plan:
ASHLEY-cr improving to 1.6
hypocalcemia is better, but worsening with bicarb IVF
changed to LR overnight , cont prn IV yunier riders
cont po yunier and vit D, calcitriol
pt reports prolia injection few weeks ago and not able to take PO yunier, vit D is likely is the reason for severe hypocalcemia
BP stable off pressors
persistent met acidosis specially with ongoing diarrhea, add po bicarb
not trying to be aggressive bicarb repletion since risk of hypocalcemia
resume calcitriol, cont yunier and D2
avoid nephrotoxins
labs q6h today
Hb low, heme neg-transfusion per primary, adequate fe stores
d/w pt and nursing
-
-
Date of Service: November 03, 2024
CC / HPI / ROS
-
Chief Complaint:
ASHLEY
History of Present Illness:
ASHLEY/Cr down to 1.6
Calcium better at 7.5 from 6.8
acidosis persists 13
Na up to 138, k better 3.5
BP stable off levophed
critically ill
Review of Systems:
no CP/SOB
diarrhea 7-8 BM last night
tolerating po but afraid to eat and low appetite
Labs
-
Labs:
WBC 5.3 10^3/uL (4.8-10.8) 11/03/24 04:21
RBC 2.12 10^6/uL (4.70-6.10) L 11/03/24 04:21
Hgb 6.8 g/dL (13.0-18.0) L* 11/03/24 06:49
Hct 22.0 % (39.0-52.0) L 11/03/24 06:49
Plt Count 228 10^3/uL (130-400) D 11/03/24 04:21
eGFR 45.50 11/03/24 04:21
Phosphorus 2.5 mg/dl (2.5-4.5) 11/01/24 10:15
Albumin 2.7 g/dl (3.5-5.0) L 11/01/24 02:46
Physical Exam
-
Vital Signs:
Vital Signs
Temp Pulse Resp BP Pulse Ox
98.5 F 69 16 116/67 97
11/03/24 08:17 11/03/24 10:03 11/03/24 10:03 11/03/24 10:03 11/03/24 10:03
Cardiovascular:: Regular rate and rhythm
Respiratory:: Bilateral: CTA (decrased)
Lung Excursion:: Normal
Abdomen:: Distended, Nontender and Soft
Extremity Edema:: None: Bilateral: (trace)
Becerra Catheter: No
[2024-11-03 12:22] LABS: Ionized Calcium 1.21 mMOL/L (1.15-1.33)
[2024-11-03 12:37] LABS: Blood Urea Nitrogen 24 mg/dl (9-20); Calcium 7.5 mg/dl (8.4-10.2); Carbon Dioxide 15 mmol/L (22-30); Chloride 114 mmol/L (98-107); Estimated Creatinine Clearance 43 ml/min; Glucose 86 mg/dl (70-99); Potassium 3.5 mmol/L (3.5-5.1); Sodium 136 mmol/L (135-145); eGFR 49.16
--- NOTE | 2024-11-03 12:45 | PTCARENOTE ---
Patient receiving 1U PRBC this afternoon for low hgb/hct. Hemetest of stool was negative for blood. Pt has only had 1 large chandler liquid BM thus far into shift, he had 6 BM's overnight. Pt remains on LR at 125ml/hr. RN tries to encourage patient to
get oob to chair/re position in bed to avoid bed sores, but patient declines RN offers. Both pt and pt's updated on plan of care. See MAR/flowsheets for further details.
[2024-11-03] MEDS: SODIUM BICARBONATE 650 MG PO ×2 (15:17→21:41)
--- NOTE | 2024-11-03 15:50 | PTCARENOTE ---
[place] text to hospitalist about increased RUE swelling on patient, doppler studies ordered.
[2024-11-03] MEDS: ASPIR LOW (ENTERIC COATED) 81 MG PO (16:51)
[2024-11-03] MEDS: IMODIUM 2 MG PO (16:51)
[2024-11-03] MEDS: ZYLOPRIM 300 MG PO (16:52)
[2024-11-03] MEDS: ZOSYN IV (16:52)
[2024-11-03 19:09] LABS: Blood Urea Nitrogen 20 mg/dl (9-20); Calcium 7.2 mg/dl (8.4-10.2); Carbon Dioxide 13 mmol/L (22-30); Chloride 112 mmol/L (98-107); Estimated Creatinine Clearance 50 ml/min; Glucose 92 mg/dl (70-99); Sodium 134 mmol/L (135-145); eGFR 58.37
[2024-11-03] MEDS: HEPARIN 5000 UNITS SC (21:42)
[2024-11-03] MEDS: MELATONIN 10 MG PO (21:49)
[2024-11-03] MEDS: QUESTRAN 4 GRAM PO (21:49)
[2024-11-04] VITALS (16 sets, daily range): BP systolic 92–149; BP diastolic 54–77; BMI 28.8
[2024-11-04] MEDS: IMODIUM 2 MG PO ×5 (00:13→23:26)
[2024-11-04] MEDS: LR 1000 IV ×2 (00:13→09:21)
[2024-11-04] MEDS: ZOSYN IV ×3 (00:14→11:02)
[2024-11-04 04:37] LABS: Hematocrit 23.7 % (39.0-52.0); Hemoglobin 7.3 g/dL (13.0-18.0); Mean Corp Hgb Conc. 30.8 g/dL (33.0-37.0); Mean Corpuscular Hgb 30.9 pg (27.0-31.0); Mean Corpuscular Volume 100.4 fL (80.0-94.0); Mean Platelet Volume 9.8 fL (7.4-10.4); Platelet Count 207 10^3/uL (130-400); Red Blood Cell Count 2.36 10^6/uL (4.70-6.10); Red Cell Dist. Width 19.1 % (11.5-14.5); White Blood Cell Count 5.6 10^3/uL (4.8-10.8)
--- NOTE | 2024-11-04 04:51 | PTCARENOTE ---
Pt with 3 large loose episodes of diarrhea overnight. Immodium given Q6hr. Refusing IV zosyn at this time as he 'thinks this might be causing his diarrhea'. LR@ 125ml/hr through L PICC. R upper extremity +1 edema. Doppler US study to be done today
to r/o DVT. No c/o pain or tenderness. Call edmond and belongings within reach. Able to make needs known. Care ongoing.
[2024-11-04 04:59] LABS: Blood Urea Nitrogen 19 mg/dl (9-20); Calcium 7.4 mg/dl (8.4-10.2); Carbon Dioxide 15 mmol/L (22-30); Chloride 115 mmol/L (98-107); Estimated Creatinine Clearance 46 ml/min; Glucose 91 mg/dl (70-99); Potassium 3.8 mmol/L (3.5-5.1); Sodium 137 mmol/L (135-145)
--- NOTE | 2024-11-04 08:31 | W.PN.HOSP.TC ---
Today's Communication/Plan
-
Consult ID
Consult hematology
Transfuse another unit of blood
Start heparin drip for right upper extremity DVT
Assessment / Plan
Assessment / Plan
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
ongoing severe diarrhea since 10/20 with intermittent fevers. No abdominal pain or vomiting.
#Bandemia unclear etiology concern for infectious diarrhea
#Pancolitis on CT scanning
#Acute diarrhea
Persistent watery brown diarrhea 10/20�current total 11 days with fever on 10/21- 10/22 Tmax 102.5
Ceftin 09/21 to 09/26 post of fever cysto with stone removal and stent
WBC 6.8, bands 11%, pancolitis on CT scanning
C. difficile negative, norovirus neg, stool cultures neg to date
Seen by GI, diarrhea improved with Imodium scheduled, Questran twice daily, GI signed off
Patient feels his diarrhea has improved since he started refusing his Zosyn on 11/03
Patient's procalcitonin was 17.96 upon admission, recheck in the morning since he is refusing zosyn
Consult ID -unusual case of continuous diarrhea with pancolitis on CT, bandemia although stool studies have been neg
#Dysuria
Check urine analysis, follow-up on urine cultures
#Right upper extremity DVT
Start heparin drip
#Acute on chronic anemia
Iron studies are adequate, B12/folic acid levels normal
Hemoglobin 7.3 today, minimally improved from 6.8 status post 1 unit packed red blood cells 11/03, was 8.4 admission
Check LDH, haptoglobin, fibrinogen, transfuse another unit of blood today, consult hematology
#Pancreatic cyst
Follow-up with GI in the office
#Metabolic acidosis 2/2 diarrheal losses/decreased oral intake
#ASHLEY on CKD 3B 2/2 diarrheal losses/decreased oral intake
-Hold Farxiga
-Hold eplerenone 25 mg p.o. every 48 H-patient has not taken since 10/28/2024
-Appreciate nephrology input, continue management as per nephrology
-Creatinine improving at 1.3 today, was 2.2 upon admission
-Trend creatinine, no nephrotoxic drugs/NSAIDs
#Multifactorial shock, likely secondary to sepsis and hypovolemia from diarrhea
#Hx HTN�benign
-Hold eplerenone 25 mg p.o. every 48 H-patient has not taken since 10/28/2024
-Hold Farxiga, hold Flomax
-PICC inserted, now off Levophed since 11/02
#Severe HYPOCALCEMIA
#Vitamin D deficiency
Secondary to malabsorption and Prolia injection on 10/01
No reported muscle cramps or twitching
Improving, continue calcitriol, calcium & vitamin D supplements
# Hyperaldosteronism
Hold eplerenone secondary to hypotension
#Hypokalemia secondary to diarrhea
Repleted and resolved
#Hyponatremia
Mild, monitor
# Obstructing right UVJ stones S/p cystoscopy and stone extraction by Dr. Hardy on 09/19/2024.
#History of multiple renal stone extraction in the past
Patient also had large volume dense clots in the ureter with difficult visualization. Stent was placed. 09/19/2024
Patient was treated for postop fever with Ceftin x 7 days starting on 09/19/2024
#Stage II pressure injury on buttock, present upon admission
Continue wound care
#Chronic bilateral lower extremity edema
Ordered TEDS
# Enlarged prostate-continue Flomax
# History of gout-continue allopurinol
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
# Sleep apnea-continue CPAP
Wears nasal pleased with fluctuating pressures up to 20
# History of cervical fusion
# Ex-smoker
DVT prophylaxis�heparin drip
Full code
Total time spent to see the patient on the floor, examine the patient, review data and lab results, discuss treatment plan with patient, nursing staff around 56 minutes.
Physical Exam
General: No acute distress
HEENT: Normocephalic, Atraumatic, EOMI, MMM
Respiratory: Clear to Auscultation bilaterally
Cardiac: Normal S1/S2, Regular Rate and Rhythm
GI: Soft, Nontender, Nondistended, Normal Bowel Sounds
Extremities: No Clubbing, Cyanosis
Bilateral lower extremity edema noted
Right upper extremity edema noted
Neuro: Nonfocal/Grossly Intact
Psych: Calm, Cooperative
Derm: Pressure injury on buttock noted
Anticipated Discharge: > 48 hours
Subjective/Interval History
-
Date of Service: November 04, 2024
Patient's diarrhea has been improving since being started on Imodium and Questran scheduled. Now he complains of dysuria. No chest pain, no nausea, no vomiting. No abdominal pain. No fever.
Objective Data
-
Labs:
Laboratory Results
11/04/24
04:22
WBC 5.6
Hgb 7.3 L
Hct 23.7 L
Plt Count 207
Sodium 137
Potassium 3.8
Chloride 115 H
Carbon Dioxide 15 L
BUN 19
Creatinine 1.4 H
Glucose 91
Calcium 7.4 L
Vital Signs:
Vital Signs
Temp Pulse Resp BP Pulse Ox
97.3 F 74 17 102/57 97
11/04/24 07:30 11/04/24 06:00 11/04/24 06:00 11/04/24 06:00 11/04/24 06:00
I&O
11/03/24 11/04/2425
06:59 06:59 06:59
Intake Total 2750 / 2750 4818 / 4818
Output Total 1999 1450 / 1450
Balance 750 / 750 3368 / 3368
[2024-11-04 08:44] LABS: Reticulocyte Count 2.9 % (0.4-2.8)
[2024-11-04] MEDS: ROCALTROL 2 MCG PO ×2 (09:28→22:00)
[2024-11-04] MEDS: DRISDOL (VITAMIN D2) 300000 UNITS PO ×2 (09:29→22:22)
[2024-11-04] MEDS: SODIUM BICARBONATE 1300 MG PO ×3 (09:29→21:59)
[2024-11-04 09:30] LABS: LDH 186 U/L (120-246)
[2024-11-04] MEDS: QUESTRAN 4 GRAM PO ×2 (09:30→22:01)
[2024-11-04] MEDS: THERAGRAN 1 TABLET PO ×3 (09:30→22:00)
[2024-11-04] MEDS: HEPARIN SC (09:30)
[2024-11-04] MEDS: VISBIOME 1 CAP PO ×2 (09:30→22:00)
[2024-11-04] MEDS: OSCAL CAL 500 500 MG PO ×3 (09:36→22:00)
[2024-11-04 10:40] LABS: Fibrinogen 327 MG/DL (199-459)
--- NOTE | 2024-11-04 10:43 | W.PN.GI.CBS2 ---
Today's Communication / Plan
-
Add fibercon
Symptoms improving on loperamide and Questran
Will need OP FU with me for colonoscopy and FU of pancreatic cyst
Assessment / Plan
-
Kamar is a 74yo M with h/o gastric bypass with duodenal switch 2008 and CKD who was admitted for dehydration in setting of acute diarrhea. Recently several urologic interventions and was on abx in Aug 2024. Generally baseline 4BMs per day. Now
more frequent s/p abx use. Also reports fever. Vitals reviewed. Labs reviewed Hbg down to 6.8 with iron panel suggestive of anemia of chronic disease. FOBT is negative. CTAP reviewed with pancolitis. Last Cscope was 2016
Impression
- Non bloody diarrhea and pancolitis on CT exam
Suspect infections or abx related
Other ddx includes microscopic colitis
- Fever
- CKD
- H/o gastric bypass duodenal switch 2008
- Anemia of chronic disease
- H/o diverticulosis
- BPH
- UVP stone
Impression
- Norovirus negative along with rest of stool studies
- Diarrhea improved significantly on loperamide 2mg Q8H standing and questran BID
- His baseline is 4 BMs daily which he is back to. Advise him that he can decline loperamide if diarrhea improves more
- Add back fibercon
- He can FU with me OP basis in 4-6 wks. He is overdue for his colonoscopy and will also need OP FU on pancreatic cyst
GI will sign off please call for questions
D/c paper updated with GI info
Subjective
Subjective
Date of Service: November 04, 2024
His diarrhea is much improved down from 10 daily to 3 in the past 24hrs. He is eating and tolerating diet better now.
Objective
Data Reviewed
Laboratory Data:
Laboratory Results
11/04/24 04:22
11/04/24 04:22
Laboratory Results
Phosphorus 2.5 mg/dl (2.5-4.5) 11/01/24 10:15
Magnesium 2.6 mg/dl (1.6-2.3) H 10/31/24 13:07
Total Bilirubin 0.7 mg/dl (0.2-1.3) 11/01/24 02:46
AST 25 U/L (17-59) 11/01/24 02:46
ALT 16 U/L (0-50) 11/01/24 02:46
Alkaline Phosphatase 82 U/L (38-126) 11/01/24 02:46
Vital Signs and I&O:
Vital Signs
Temp Pulse Resp BP Pulse Ox
97.3 F 84 19 104/66 96
11/04/24 07:30 11/04/24 10:00 11/04/24 10:00 11/04/24 10:00 11/04/24 10:00
I&O
11/03/24 11/04/24 11/05/24
06:59 06:59 06:59
Intake Total 2750 / 2750 4818 / 4818 480 / 480
Output Total 1999 / 1999 1450 / 1450 100 / 100
Balance 750 / 750 3368 / 3368 380 / 380
Physical Exam
Physical Exam
GEN: No acute distress, conversant, pleasant
HEENT: anicteric, extraocular movements intact, clear oropharynx without exudates
GI: soft, non-distended, not tender to palpation, normal active bowel sounds, no hepatosplenomegaly
EXT: warm, well perfused, trace edema bilaterally
NEURO: AAOx3, non-focal
--- NOTE | 2024-11-04 10:55 | W.PN.NEPH.PH ---
Today's Communication / Plan
-
adjust IVF based on labs
check UA
Assessment/Plan
-
74-year-old male complaining of watery brown diarrhea since 10/20 up to 8-10 times per day he states on 10/21 and 10/22 he developed a fever with Tmax of 102.5. He was on Ceftin from 09/21-2023 after clot removal from right ureter postop
UVJ stone removal. He had additional procedure on 10/11 status post cystoscopy right ureteroscopy with ureteral biopsy and fulguration, right ureteroscopy with complex laser lithotripsy, stone extraction and stent placement possible preop ABX.
recent admission 09/18 - 09/21/2024 status post obstructing right UVJ stone removal with clots in ureter stent was placed for additional stone removal October 11.
other past medical history includes CKD stage IIIb and follows with Dr. 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,
sleep apnea/CPAP, cervical fusion, ex-smoker, multiple renal calculi left and right with recent removals September 2024.
renal consultation for acute and chronic kidney disease will baseline creatinine 1.7 and acute metabolic acidosis
impression:
Diarrhea-pancolitis on CT
acute on chronic kidney disease stage IIIB the baseline creatinine 1.7 with admitting creatinine of 2.2.
Acute metabolic acidosis=Anion gap plus a Non gap metabolic acidosis.
History of recent renal calculi calcium oxalate stones>with recent antibiotic use
History of hyper Fuad.
Acute diarrhea
acute hypocalcemia/hyponatremia
ureteral stent
plan:
ASHLEY-cr improving to 1.4
hypocalcemia is better and stable
cont po yunier and vit D, calcitriol
pt reports prolia injection few weeks ago and not able to take PO yunier, vit D is likely is the reason for severe hypocalcemia on admit
persistent met acidosis specially with ongoing diarrhea, hopefully he can now tolerate bicarb IVF-change to 1/2 NS with bicarb after repat labs
not trying to be aggressive bicarb repletion since risk of hypocalcemia
BP stable off pressors >24hrs
avoid nephrotoxins
Hb low, heme neg-transfusion per primary, adequate fe stores
edema mostly in UEs, US pending. will decrease IVF rate too
c/o dysuria with h/o U stent, check UA, also notes that he is due for stent echange too-likely need eval
d/w pt and nursing
-
-
Date of Service: November 04, 2024
CC / HPI / ROS
-
Chief Complaint:
ASHLEY
History of Present Illness:
ASHLEY/Cr down to 1.4
Calcium stable at 7.4
acidosis persists 15
Na up to 137, k better 3.8
BP stable off levophed >24hrs
wt is increasing
Review of Systems:
no CP/SOB
diarrhea slowing down, on Questran
tolerating po
has dysuria today
Labs
-
Labs:
WBC 5.6 10^3/uL (4.8-10.8) 11/04/24 04:22
RBC 2.36 10^6/uL (4.70-6.10) L 11/04/24 04:22
Hgb 7.3 g/dL (13.0-18.0) L 11/04/24 04:22
Hct 23.7 % (39.0-52.0) L 11/04/24 04:22
Plt Count 207 10^3/uL (130-400) 11/04/24 04:22
Sodium 137 mmol/L (135-145) 11/04/24 04:22
Potassium 3.8 mmol/L (3.5-5.1) 11/04/24 04:22
Chloride 115 mmol/L (98-107) H 11/04/24 04:22
Carbon Dioxide 15 mmol/L (22-30) L 11/04/24 04:22
BUN 19 mg/dl (9-20) 11/04/24 04:22
Creatinine 1.4 mg/dL (0.7-1.3) H 11/04/24 04:22
eGFR 53.40 11/04/24 04:22
Glucose 91 mg/dl (70-99) 11/04/24 04:22
Calcium 7.4 mg/dl (8.4-10.2) L 11/04/24 04:22
Phosphorus 2.5 mg/dl (2.5-4.5) 11/01/24 10:15
Albumin 2.7 g/dl (3.5-5.0) L 11/01/24 02:46
Physical Exam
-
Vital Signs:
Vital Signs
Temp Pulse Resp BP Pulse Ox
97.4 F 84 19 104/66 96
11/04/24 11:43 11/04/24 10:00 11/04/24 10:00 11/04/24 10:00 11/04/24 10:00
Cardiovascular:: Regular rate and rhythm
Respiratory:: Bilateral: CTA
Lung Excursion:: Normal
Abdomen:: Nontender and Soft
Extremity Edema:: +1: Bilateral:
Becerra Catheter: No
Other Findings::
right UE 2+, left UE 1+
[2024-11-04] MEDS: FIBERCON 1250 MG PO ×2 (11:25→22:00)
[2024-11-04] MEDS: Pyridium 200 MG PO (13:29)
[2024-11-04 13:51] LABS: Urine Albumin Trace (Neg - Trace); Urine Bilirubin Negative (Negative); Urine Character Clear (Clear); Urine Color Yellow; Urine Glucose Negative (Negative); Urine Ketone Negative (Negative); Urine Leukocyte Trace (Negative); Urine Nitrite Negative (Negative); Urine Occult Blood Trace (Negative); Urine Urobilinogen Negative (Neg - 1+); Urine pH 6.5 (5.0-9.0)
[2024-11-04 14:02] LABS: Urine Mucus Few
[2024-11-04 14:04] LABS: Urine Bacteria Few (Negative)
[2024-11-04 14:16] LABS: Blood Urea Nitrogen 18 mg/dl (9-20); Calcium 7.7 mg/dl (8.4-10.2); Carbon Dioxide 14 mmol/L (22-30); Chloride 113 mmol/L (98-107); Estimated Creatinine Clearance 50 ml/min; Glucose 115 mg/dl (70-99); Potassium 4.1 mmol/L (3.5-5.1); Sodium 136 mmol/L (135-145); eGFR 58.37
[2024-11-04 15:54] LABS: APTT 30.8 Sec (23.4-35.0)
[2024-11-04] MEDS: HEPARIN 6900 UNITS IV ×2 (16:23→23:19)
[2024-11-04] MEDS: HEPARIN 25000 UNITS/250 ML IV (16:27)
[2024-11-04] MEDS: ASPIR LOW (ENTERIC COATED) 81 MG PO (17:02)
[2024-11-04] MEDS: ZYLOPRIM 300 MG PO (17:02)
[2024-11-04] MEDS: LR IV (17:03)
--- NOTE | 2024-11-04 17:46 | PTCARENOTE ---
Patient RUE Doppler US studies revealed a right brachial DVT, heparin gtt initiated per order. Hematology and ID added on as consults. Patient has only had 1 large liquid bowel movement this shift, no bleeding seen anywhere, afebrile, no n/v.
Patient also receiving 1U PRBC for hgb 7.3 today. Nephrology d/c LR gtt and ordered 0.45NaCl sodium bicarb 75mEq at 60ml/hr. Patient only has double lumen picc now, limb restriction on each UE. Will complete blood transfusion first, then start other
IVF order. Voiding via urinal, UA sent this shift as patient endorsed pain with urination. See MAR/flowsheets for further care details.
[2024-11-04] MEDS: SODIUM BICARBONATE 1075 MEQ IV (21:59)
[2024-11-04] MEDS: MELATONIN 10 MG PO (21:59)
[2024-11-04 22:57] LABS: APTT 54.5 Sec (23.4-35.0)
[2024-11-05] VITALS (13 sets, daily range): BP systolic 121–144; BP diastolic 58–80; BMI 29.0
[2024-11-05] MEDS: IMODIUM 2 MG PO (05:49)
[2024-11-05 05:56] LABS: Hematocrit 24.6 % (39.0-52.0); Hemoglobin 7.9 g/dL (13.0-18.0); Mean Corp Hgb Conc. 32.1 g/dL (33.0-37.0); Mean Corpuscular Hgb 30.4 pg (27.0-31.0); Mean Corpuscular Volume 94.6 fL (80.0-94.0); Mean Platelet Volume 9.7 fL (7.4-10.4); Platelet Count 191 10^3/uL (130-400); Red Cell Dist. Width 19.3 % (11.5-14.5); White Blood Cell Count 6.6 10^3/uL (4.8-10.8)
--- NOTE | 2024-11-05 05:58 | W.PN.HOSP.TC ---
Today's Communication/Plan
-
clear liquid diet, bowel prep, npo after midnight for colonoscopy as per GI
Replete electrolytes
IVF bicarb supplementation as per Nephro
resume Flomax
Assessment / Plan
Assessment / Plan
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
ongoing severe diarrhea since 10/20 with intermittent fevers. No abdominal pain or vomiting.
#Bandemia unclear etiology concern for infectious diarrhea
#Pancolitis on CT scanning
#Acute diarrhea
Persistent watery brown diarrhea 10/20�current total 11 days with fever on 10/21- 10/22 Tmax 102.5
Ceftin 09/21 to 09/26 post of fever cysto with stone removal and stent
WBC 6.8, bands 11%, pancolitis on CT scanning
C. difficile negative, norovirus neg, stool cultures neg to date
Diarrhea initially improved with Imodium scheduled, Questran twice daily, however since worsened
GI eval appreciated clear liquid diet, bowel prep, npo after midnight for colonoscopy.
Patient's procalcitonin was 17.96 upon admission, recheck however notes significant improvement following a course of abx Zosyn
ID eval appreciated giardia/crypto COVID neg, no further abx recommended at this time.
#Dysuria
#Hx ureter stent
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
# Obstructing right UVJ stones S/p cystoscopy and stone extraction by Dr. Hardy on 09/19/2024.
#History of multiple renal stone extraction in the past
#Patient also had large volume dense clots in the ureter with difficult visualization. Stent was placed. 09/19/2024
recent Urinalysis appreciated not suggestive of UTI
Urology eval requested
#Right upper extremity Superficial VT
conservative mgmt, warm compress prn
therapeutic anticoagulation not indicated
#Acute on chronic anemia
Iron studies are adequate, B12/folic acid levels normal
Hemoglobin 7.3 today, minimally improved from 6.8 status post 1 unit packed red blood cells 11/03, was 8.4 admission
LDH wnl, haptoglobin pending, fibrinogen wnl
received 2PRBC over the course of hospitalization
Hematology eval appreciated appreciated
#Pancreatic cyst
Follow-up with GI in the office
#Metabolic acidosis 2/2 diarrheal losses/decreased oral intake
#ASHLEY on CKD 3B 2/2 diarrheal losses/decreased oral intake
-Hold Farxiga
-Hold eplerenone 25 mg p.o. every 48 H-patient has not taken since 10/28/2024
-Appreciate nephrology input, continue management as per nephrology
-Creatinine improved from 2.2 on admission
-Trend creatinine, no nephrotoxic drugs/NSAIDs
#Multifactorial shock, likely secondary to sepsis and hypovolemia from diarrhea
#Hx HTN�benign
-Hold eplerenone 25 mg p.o. every 48 H-patient has not taken since 10/28/2024
-Hold Farxiga
-PICC inserted, now off Levophed since 11/02
-Flomax initially held since resumed with improvement in pressures
#Severe HYPOCALCEMIA
#Vitamin D deficiency
Secondary to malabsorption and Prolia injection on 10/01
No reported muscle cramps or twitching
Improving, continue calcitriol, calcium & vitamin D supplements
# Hyperaldosteronism
Hold eplerenone secondary to hypotension and ASHLEY
#Hypokalemia secondary to diarrhea
Repleted and resolved
#Hyponatremia
Mild, monitor
#Stage II pressure injury on buttock, present upon admission
Continue wound care
#Chronic bilateral lower extremity edema
Ordered TEDS
# Enlarged prostate-continue Flomax
# History of gout-continue allopurinol
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
# Sleep apnea-continue CPAP
# History of cervical fusion
# Ex-smoker
DVT prophylaxis Lovenox
Full code
Discussed with patient and patient's Luz Maria
Total time spent to see the patient on the floor, examine the patient, review data and lab results, discuss treatment plan with patient, nursing staff around 50 minutes.
Physical Exam
General: No acute distress
HEENT: Normocephalic, Atraumatic, EOMI, MMM
Respiratory: Clear to Auscultation bilaterally
Cardiac: Normal S1/S2, Regular Rate and Rhythm
GI: Soft, Nontender, Nondistended, Normal Bowel Sounds
Extremities: No Clubbing, Cyanosis
Bilateral lower extremity edema noted
Right upper extremity edema noted
Neuro: Awake Alert Conversant Coherent
Psych: Calm, Cooperative
Anticipated Discharge: 24 - 48 hours
Subjective/Interval History
-
Date of Service: November 05, 2024
reports worsening diarrhea overnight.
Objective Data
-
Labs:
Laboratory Results
11/04/24 11/05/24
22:34 05:45
WBC 6.6
Hgb 7.9 L
Hct 24.6 L
Plt Count 191
APTT 54.5 H Pending
Sodium Pending
Potassium Pending
Chloride Pending
Carbon Dioxide Pending
BUN Pending
Creatinine Pending
Glucose Pending
Calcium Pending
Vital Signs:
Vital Signs
Temp Pulse Resp BP Pulse Ox
98.4 F 75 16 125/58 96
11/05/24 02:47 11/05/24 04:00 11/05/24 04:00 11/05/24 04:00 11/05/24 04:00
I&O
11/03/24 11/04/24 11/05/24
06:59 06:59 06:59
Intake Total 2750 / 2750 4818 / 4818 2094
Output Total 1999 1450 / 1450 1650 / 1650
Balance 750 / 750 3368 / 3368 445 / 445
[2024-11-05 06:20] LABS: APTT > 200 Sec (23.4-35.0)
[2024-11-05 06:54] LABS: Blood Urea Nitrogen 17 mg/dl (9-20); Carbon Dioxide 14 mmol/L (22-30); Chloride 116 mmol/L (98-107); Estimated Creatinine Clearance 59 ml/min; Glucose 91 mg/dl (70-99); Magnesium 1.5 mg/dl (1.6-2.3); Potassium 4.1 mmol/L (3.5-5.1); Sodium 137 mmol/L (135-145); eGFR > 60.00
--- NOTE | 2024-11-05 07:00 | PTCARENOTE ---
Patient had 5+ loose incontinent BMs overnight. BM is chandler/brown in color with pieces of food patient ate. Last BM had the odor of vomit, pt agreed. Barrier cream applied generously every time he was cleaned. Pt appreciative of care. Heparin gtt and
IVF continue per MAR/worklist. Voiding via urinal with assistance; painful urination continues. call edmond within reach. pt calls appropriately.
[2024-11-05] MEDS: ROCALTROL 2 MCG PO (08:16)
[2024-11-05] MEDS: VISBIOME 1 CAP PO (08:17)
[2024-11-05] MEDS: FIBERCON 1250 MG PO (08:18)
[2024-11-05] MEDS: THERAGRAN 1 TABLET PO ×2 (08:18→16:45)
[2024-11-05] MEDS: SODIUM BICARBONATE 1300 MG PO ×2 (08:18→16:46)
[2024-11-05] MEDS: DRISDOL (VITAMIN D2) 300000 UNITS PO (08:19)
[2024-11-05] MEDS: OSCAL CAL 500 500 MG PO ×2 (08:19→16:45)
--- NOTE | 2024-11-05 09:21 | CON.ID ---
Consultation
-
Date/Time Consultation Requested: 11/04/24 16:19
Date/Time Consultation Performed: 11/04/24 9:21
Requesting Provider: Dr Doe
Performing Provider: Dr Ly
Reason for Consultation: continuous diarrhea with pancolitis on CT, bandemia although stool studies
Chief Complaint / Past History
Chief Complaint
Diarrhea x 11 days, lightheadedness
History of Present Illness
Mr Mendoza is a 74 year old male with history of Biliopancreatic Diversion with Duodenal Switch (2008), Choledochoduodenostomy, CKD3, who presented here 10/20 for watery brown diarrhea 10x/day increased from his baseline of 4x/day of loose stools
with fiber supplement. Of note 09/23 s/p admission for obstructing uvp stone, clot removal, stent placement on ceftin 09/21-09/26 and additional stone removal 10/11. On 10/20 developed diarrhea 2-3x, the next day with fever and day 3 with increase
to 10-12 stools/day. H denied dysphagia, nausea, vomiting, abdominal pain, constipation, bloody or black stools. He presented to this hospital on 10/31 with hypotension initially requiring pressors, ASHLEY on CKD, drop in hgb to 6.8, acidosis and
procalcitonin to 18, CT with pancolitis. He was initially started on zosyn which continued for 3 days, patient began refusing the medication late afternoon of 11/03 and it was discontinued 11/04, C difficile negative, norovirus considered but lab was
out of kits, stools cultures finalized negative. He has remained afebrile off of antibiotics, bp remains stable, WBC normal throughout this admission, L shift noted on HD1 and 2 and not recorded since, he has been acidotic since arrival with CO2
currently running about 14, Cr peaked on arrival at 2.2 now 1.1 which may be his basline - lowest number on file for the last 10 years, mag and phos low today, procal on arrival 18 today 0.4, UA yesterday 6-10 wbcs and few squamous cells, 1/5 PV
ultrasound with nonocclusive thrombus. Patient tells me yesterday it seemed like he was getting back to his baseline for BMs, however today its 'just pouring out again'
Past History
Additional Past Medical History:
HTN, Renal Failure (CKD) and Other (DDD, hyperparathyroidism, hyperaldosteronism, nephrolithiasis, POLLY, colon polyps, obesity with hx gastric bypass, anemia, lactose intolerance, retinal detachment, gluten intolerance, vitamin D deficiency,
acidosis, BPH
Additional Past Surgical History:
Appendectomy, Orthopedic (discectomy, cervical fusion, rotator cuff, radial ORIF, carpel tunnel, tiger finger surgery) and Other (hernia repair , gastric bypass- duodenal switch 2008, cataract surgery
Allergy History:
oxycodone Allergy (Intermediate, Verified 10/31/24 08:53)
Itching
gluten Allergy (Verified 10/31/24 08:53)
diarrhea and chills
NSAIDS (Non-Steroidal Anti-Inflamma Allergy (Verified 10/31/24 08:53)
KIDNEY DISEASE
thiopental Allergy (Verified 10/31/24 08:53)
Agitation
Medications Reviewed: Yes
Social History
Tobacco: Former Smoker
Alcohol: Occasional
Drug: None
Family History
Family History: Not Pertinent
Review of Systems
Review of Systems
General: Negative Fever or Chills
All systems: All other systems were reviewed and were negative
Vital Signs
Temp Pulse Resp BP Pulse Ox
98.1 F 79 18 129/73 96
11/05/24 06:59 11/05/24 06:00 11/05/24 06:00 11/05/24 06:00 11/05/24 06:00
Physical Exam
Physical Exam
Constitutional: No Acute Distress and Chronically Ill
Cardiovascular: Regular Rate and S1/S2; Negative Murmur or Rub
Pulmonary: Clear and Symmetric; Negative Wheezes, Rales or Rhonchi
Gastrointestinal: Soft, Non Tender, Non Distended and Normal Bowel Sounds
Skin: Warm and Dry; Negative Rash or Jaundice
Lab / Diagnostic Study Results
11/05/24 05:45
11/05/24 05:45
Abs Immat Gran (auto) 0.1 10^3/uL (0-0.05) H 11/01/24 02:46
Absolute Neuts (auto) 5.6 10^3/uL (1.4-6.5) 11/01/24 02:46
Absolute Lymphs (auto) 0.4 10^3/uL (1.2-3.4) L 11/01/24 02:46
Absolute Monos (auto) 0.4 10^3/uL (0.1-0.6) 11/01/24 02:46
Absolute Basos (auto) 0.0 10^3/uL (0-0.2) 11/01/24 02:46
Total Counted 100 10/31/24 09:29
Immature Gran % 0.8 % (0-0.5) H 11/01/24 02:46
Neutrophils % 86.1 % (42.2-75.2) H 11/01/24 02:46
Lymphocytes % 6.6 % (20.5-51.1) L 11/01/24 02:46
Monocytes % 5.7 % (1.7-9.3) 11/01/24 02:46
Eosinophils % 0.5 % (0-6) 11/01/24 02:46
Basophils % 0.3 % (0-2) 11/01/24 02:46
Abs Neuts (Manual) 6.1 10^3/uL (1.4-6.5) 10/31/24 09:29
Segmented Neutrophils 80 % (42-75) H 10/31/24 09:29
Band Neutrophils 11 % (0-3) H 10/31/24 09:29
Lymphocytes (Manual) 4 % (20-51) L 10/31/24 09:29
Lactic Acid < 0.5 mmol/L (0.7-2.0) L 11/01/24 10:26
Procalcitonin 0.40 ng/ml (0.0-0.25) H 11/05/24 05:45
Ur Squamous Epith Cells 6-10 /LPF (Few) 11/04/24 13:17
Microbiology Results
Micro:
10/31/24 13:07 Blood Culture - Preliminary
Blood/Venous No Growth in 4 days- Final report to follow
10/31/24 12:53 Blood Culture - Preliminary
Blood/Venous No Growth in 4 days- Final report to follow
11/03/24 11:57 - Final
Feces/Stool Negative for Norovirus GI and GII.
11/01/24 13:49 Salmonella/Shigella Culture - Final
Feces/Stool No Salmonella, Shigella, Aeromonas or Plesiomonas species
isolated.
Campylobacter Culture - Final
No Campylobacter species isolated.
Shiga Toxin Test - Pending
Stool Leukocytes - Final
11/01/24 02:46 MRSA Screen - Final
Nose No Methicillin Resistant Staphylococcus aureus isolated.
11/01/24 13:48 C. difficile GDH Antigen & Toxins - Final
Feces/Stool Negative for toxigenic C.difficile
Assessment / Plan
Subacute Diarrhea
h/o gastric bypass with duodenal switch 2008 - baseline is 4 loose BM/day
Resolved ASHLEY on CKD
- patient tells me that while yesterday BMs seemed to be returning to baseline, today with relapse with markedly increased fecal and urinary incontinence
- procalcitonin <0.5 and has decreased by >80% from admission baseline - no indication for further antibiotics by either measure
- attribute initially elevated procalcitonin to shock which has resolved
- added on differential to today's labs; L shift overall improved
- UA 11/04 without significant pyuria, did not reflex to culture
- C difficile negative, stool cultures negative, norovirus pcr was out of stock initially, found to be negative 11/03
- will check giardia/crypto which can cause subacute diarrhea, covid pcr, beyond that, would not recommend further testing or treatment at this time
- PICC management per hospitalist
- will follow
--- NOTE | 2024-11-05 09:34 | CON.ONC ---
Impression
Impression
Diarrhea/pancolitis, severe times weeks
Kidney stones status post removal and right ureteral stent placement
Baseline CKD 3, creatinine 1.7
Acute on chronic renal insufficiency, now improved
Pressure ulcer on buttock
History of duodenal switch for weight loss
Diverticulosis
Chronic recurrent iron deficiency
Anemia, suspect multifactorial
Right upper extremity superficial vein thrombosis, non-occlusive, now on heparin drip
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
Plan
Plan
R basilic vein thrombosis is superficial, anticoagulation not needed unless symptomatic. Warm compresses and elevation when possible.
Suspect anemia is related to inflammatory state but cannot exclude occult blood loss in patient with recurrent iron def.
Agree with colonoscopy as planned, last was in 02/2017, poor prep with 2-3 year follow up recommended at that time
Suggest heme checking all stools to determine whether he might need upper endoscopy as well
Await sed rate as ordered.
Ordered today: Epo level, SPEP, SFLC.
Await ID consult regarding the diarrhea which followed a course of antibiotics for kidney stone procedure.
Iron stores currently replete s/p IV iron 09/28.
Discussed with pt the finding of non-invasive papillary urothelial carcinoma in ureter. Defer to Dr. Hardy regarding management.
Thank you for consult, will follow along with you.
Patient History
History of Present Illness
74-year-old man with complicated medical history including chronic stage III kidney disease with baseline creatinine 1.7, kidney stones, biliopancreatic diversion with duodenal switch and colodochoduodenostomy for weight loss, former smoker, sleep
apnea on CPAP, chronic iron deficiency dependent on IV iron (most recently Monoferric 09/28.) His recent history includes kidney stone removal in mid August with placement of stent. He was on Ceftin from 09/21-2023 after clot removal
from right ureter postop UVJ stone removal. He had additional procedure on 10/11 status post cystoscopy right ureteroscopy with ureteral biopsy and fulguration, right ureteroscopy with complex laser lithotripsy, stone extraction and stent placement
possible preop ABX. He came to the hospital with copious diarrhea beginning October 20. Workup to date has been negative and the diarrhea has continued. Over the course of his admission, his kidney function has improved, now with creatinine of
1.1 but hemoglobin has been around 8 despite recent iron treatment. Iron studies are currently adequate with ferritin of 395, iron sat of 52%. We are consulted regarding the anemia. Other inpatient issues include right basilic (superficial vein)
thrombosis for which patient has been started on a heparin drip, and pressure pressure ulcer on buttock. We are consulted for the anemia.
Past-Medical/Surgical History
Past Medical History
Hyperaldosteronism
Hyperparathyroidism
CKD Stage III
Obstructive Sleep Apnea
BPH
Nephrolithiasis
Past Surgical History
Biliopancreatic Diversion with Duodenal Switch
Choledochoduodenostomy
Umbilical Hernia Repair
Right Reverse Total Shoulder Replacement
Left Rotator Cuff Repair
Left Distal Radius ORIF
Bilateral Carpal Tunnel Release
Left Trigger Finger Release
Cervical Fusion
R ureteral biopsy 10/11/24 - non-invasive low-grade papillary urothelial carcinoma
Social History
Tobacco: Former Smoker (Quit in 1986)
Alcohol: Other (Very Rare)
Drug: None
Personal:
Living: With Family
Family History
Not pertinent
Patient Medication
�Medication �Instructions �Recorded �Confirmed �Last Taken �Type
allopurinol 300 mg tablet 300 mg PO QPM Gout 05/12/09 10/31/24 10 Days Ago History
~10/21/24
aspirin 81 mg tablet,delayed 81 mg PO QPM Blood Clot 10/21/23 10/31/24 10 Days Ago History
release Prevention/Tx ~10/21/24
calcitriol 0.5 mcg capsule 2 mcg PO BID Kidney Disease 10/21/23 10/31/24 10 Days Ago History
~10/21/24
coenzyme Q10 100 mg capsule (Co 100 mg PO QPM Supplement 10/21/23 10/31/24 10 Days Ago History
Q-10) ~10/21/24
dapagliflozin propanediol 10 mg 10 mg PO DAILY Kidney Disease 10/21/23 10/31/24 10 Days Ago History
tablet (Farxiga) ~10/21/24
denosumab 60 mg/mL subcutaneous 60 mg SC [id number] osteoporosis 10/21/23 10/31/24 04/13/24 History
syringe (Prolia)
ergocalciferol (vitamin D2) 1,250 7,500 mcg PO BID Supplement 10/21/23 10/31/24 10 Days Ago History
mcg (50,000 unit) capsule ~10/21/24
tamsulosin 0.4 mg capsule 0.4 mg PO QPM Urinary Issue 10/21/23 10/31/24 10 Days Ago History
~10/21/24
eplerenone 25 mg tablet (Inspra) 25 mg PO Q48H@1999 Kidney Disease 02/08/24 10/31/24 3 Days Ago History
~10/28/24
fluticasone propionate 50 1 spray intranasal DAILYPRN PRN 02/08/24 10/31/24 10/10/24 History
mcg/actuation nasal nasal congestion
spray,suspension
potassium citrate 99 mg capsule 99 mg PO MEALS Supplement 02/08/24 10/31/24 10 Days Ago History
~10/21/24
calcium carbonate 500 mg PO TID Supplement 06/26/24 10/31/24 10 Days Ago History
~10/21/24
melatonin 10 mg tablet 10 mg PO HS Supplement 06/26/24 10/31/24 10 Days Ago History
~10/21/24
Lactobac no.2-Bifidobac no.1-S. 1 cap PO DAILY Supplement 09/18/24 10/31/24 10 Days Ago History
thermo 112.5 billion cell capsule ~10/21/24
(Visbiome)
therapeutic multivitamin 1 tab PO TID Supplement 09/18/24 10/31/24 10 Days Ago History
~10/21/24
vitamin A palmitate 7,500 mcg 7,500 mcg PO HS Supplement 09/18/24 10/31/24 10 Days Ago History
(25,000 unit) capsule ~10/21/24
iron 20 mg PO TID Supplement 10/09/24 10/31/24 10 Days Ago History
~10/21/24
magnesium 250 mg tablet 250 mg PO DAILY Supplement 10/09/24 10/31/24 10 Days Ago History
~10/21/24
zinc acetate 50 mg (zinc) capsule 50 mg PO DAILY Supplement 10/09/24 10/31/24 10 Days Ago History
~10/21/24
Active Medications
Generic Name Dose Route Start Last Admin
Trade Name Freq PRN Reason Stop Dose Admin
Acetaminophen 650 mg 10/31/24 18:19
Acetaminophen 325 Mg Tablet PO 11/28/24 18:18
Q4HPRN PRN
mild pain/MAJOR/temp> 100.4F
Allopurinol 300 mg 10/31/24 18:19 11/04/24 17:02
Allopurinol 300 Mg Tablet PO 11/28/24 18:18 300 mg
QPM JONATHON Administration
Aspirin 81 mg 10/31/24 18:19 11/04/24 17:02
Aspirin 81 Mg (Enteric Coated) Tablet PO 11/28/24 18:18 81 mg
QPM JONATHON Administration
Calcitriol 2 mcg 11/02/24 20:00 11/05/24 08:16
Calcitriol 0.25 Microgram Capsule PO 11/30/24 19:59 2 mcg
BID JONATHON Administration
Calcium Carbonate 500 mg 10/31/24 22:00 11/05/24 08:19
Calcium Carbonate 500 Mg Tablet PO 11/28/24 21:59 500 mg
TID JONATHON Administration
Calcium Carbonate 600 mg 11/01/24 16:56 11/03/24 05:14
Calcium Antacid 300 Mg (Calcium Carbonate 750 Mg) Chew Tablet PO 11/29/24 16:55 600 mg
Q4HPRN PRN Administration
reflux
Calcium Polycarbophil 1,250 mg 11/04/24 11:00 11/05/24 08:18
Calcium Polycarbophil 625 Mg Tablet PO 12/02/24 10:59 1,250 mg
BID JONATHON Administration
Ergocalciferol 300,000 units 10/31/24 20:00 11/05/24 08:19
Ergocalciferol (Vitamin D-2) 83944 Units Capsule PO 11/28/24 19:59 300,000 units
BID JONATHON Administration
Sodium Bicarbonate 75 meq/ 1,075 mls @ 60 mls/hr 11/04/24 17:00 11/04/24 21:59
Sodium Chloride IV 1,075 mls
.[id number] JONATHON Administration
Lactobacillus/Bifidobacterium 1 cap 11/03/24 20:00 11/05/24 08:17
Lactobac/Bifidobac (Visbiome) PO 12/01/24 19:59 1 cap
BID JONATHON Administration
Melatonin 10 mg 10/31/24 22:00 11/04/24 21:59
Melatonin 5 Mg Tablet PO 11/28/24 21:59 10 mg
HS JONATHON Administration
Multivitamins Therapeutic 1 tablet 10/31/24 22:00 11/05/24 08:18
Multivitamin Tablet PO 11/28/24 21:59 1 tablet
TID JONATHON Administration
Vitamin A Palmitate 7,500 mcg 10/31/24 22:00
7,500 Mcg (25,000 PO 11/28/24 21:59
Unit) Capsule Po Hs HS JONATHON
Ondansetron HCl 4 mg 10/31/24 18:19
Ondansetron 4 Mg/2 Ml Vial IV 11/28/24 18:18
Q6HPRN PRN
nausea and vomiting
Phenazopyridine HCl 100 mg 11/04/24 20:00
Phenazopyridine 100 Mg Tablet PO 12/02/24 19:59
TIDPRN PRN
burning
Polyethylene Glycol 4 liters 11/05/24 17:00
Colyte (Peg Electrolyte) Solution 4 Liter Bottle PO 11/05/24 17:01
ONCE ONE
Sodium Bicarbonate 1,300 mg 11/03/24 22:31 11/05/24 08:18
Sodium Bicarbonate 650 Mg Tablet PO 12/01/24 15:59 1,300 mg
TID JONATHON Administration
Sodium Chloride 0 flush 10/31/24 15:00
Sodium Chloride 0.9% (Flush) Syringe IV 11/28/24 14:59
PER PROTOCOL JONATHON
Tamsulosin HCl 0.8 mg 11/05/24 18:00
Tamsulosin 0.4 Mg Capsule PO 12/03/24 17:59
QPM JONATHON
Review of Systems
-
History Source: Patient and Records
All Other Systems: Reviewed and Negative
Constitutional: Reports Fever, No Appetite and Fatigue
EENT: Reports No Symptoms
Respiratory: Reports No Symptoms
Cardiac: Reports No Symptoms
GI: Reports Abdominal Pain
: Reports Flank Pain
Musculoskeletal: Reports No Symptoms
Skin: Reports Other (Pain associated with buttock decub)
Neuro: Reports No Symptoms
Endocrine: Reports No Symptoms
Hematologic/Lymphatic: Reports No Symptoms
Allergy / Immunology: Reports No Symptoms
Psych: Reports No Symptoms
Physical Exam
-
Awake, alert, chronically ill but non-toxic appearing
General: Well Developed, Well Nourished and Appears Chronically Ill
HEENT: Moist Mucous Membranes; Negative Jaundice
Neurology: Non Focal
Psych: Calm and Depressed
Labs
Lab Results
WBC 6.6 10^3/uL (4.8-10.8) 11/05/24 05:45
RBC 2.60 10^6/uL (4.70-6.10) L 11/05/24 05:45
Hgb 7.9 g/dL (13.0-18.0) L 11/05/24 05:45
Hct 24.6 % (39.0-52.0) L 11/05/24 05:45
MCV 94.6 fL (80.0-94.0) H 11/05/24 05:45
MCH 30.4 pg (27.0-31.0) 11/05/24 05:45
MCHC 32.1 g/dL (33.0-37.0) L 11/05/24 05:45
RDW 19.3 % (11.5-14.5) H 11/05/24 05:45
Plt Count 191 10^3/uL (130-400) 11/05/24 05:45
MPV 9.7 fL (7.4-10.4) 11/05/24 05:45
Abs Immat Gran (auto) 0.1 10^3/uL (0-0.05) H 11/01/24 02:46
Absolute Neuts (auto) 5.6 10^3/uL (1.4-6.5) 11/01/24 02:46
Absolute Lymphs (auto) 0.4 10^3/uL (1.2-3.4) L 11/01/24 02:46
Absolute Monos (auto) 0.4 10^3/uL (0.1-0.6) 11/01/24 02:46
Absolute Eos (auto) 0.0 10^3/uL (0-0.7) 11/01/24 02:46
Absolute Basos (auto) 0.0 10^3/uL (0-0.2) 11/01/24 02:46
Immature Gran % 0.8 % (0-0.5) H 11/01/24 02:46
Neutrophils % 86.1 % (42.2-75.2) H 11/01/24 02:46
Lymphocytes % 6.6 % (20.5-51.1) L 11/01/24 02:46
Monocytes % 5.7 % (1.7-9.3) 11/01/24 02:46
Eosinophils % 0.5 % (0-6) 11/01/24 02:46
Basophils % 0.3 % (0-2) 11/01/24 02:46
Creatinine 1.1 mg/dL (0.7-1.3) 11/05/24 05:45
09/28/2024 WBC 7.88, Hgb 7.9, PLT 300, ANC 5460
10/31/2024 hemoglobin 8.4
11/01 LFTs normal
11/03 ferritin 395, iron sat 52%
11/05 WBC 6.6, no differential since 11/01, Hgb 7.9, PLT 191, retake 2.9%, CR 1.1, bicarb 14, LDH 186, procalcitonin 0.4
Vital Signs
Vital Signs
Temp Pulse Resp BP Pulse Ox
98.1 F 79 18 129/73 96
11/05/24 06:59 11/05/24 06:00 11/05/24 06:00 11/05/24 06:00 11/05/24 06:00
--- NOTE | 2024-11-05 09:58 | W.PN.GI.CBS2 ---
Today's Communication / Plan
-
Colonoscopy prep
CLD and NPO at [facility] for colonoscopy tomorrow
Will follow with you. Hospitalist and RN updated
Assessment / Plan
-
Kamar is a 74yo M with h/o gastric bypass with duodenal switch 2008 and CKD who was admitted for dehydration in setting of acute diarrhea. Recently several urologic interventions and was on abx in Aug 2024. Generally baseline 4BMs per day. Now
more frequent s/p abx use. Also reports fever. Vitals reviewed. Labs reviewed Hbg down to 6.8 with iron panel suggestive of anemia of chronic disease. FOBT is negative. CTAP reviewed with pancolitis. Last Cscope was 2016
Impression
- Non bloody diarrhea and pancolitis on CT exam
Suspect infections or abx related
Other ddx includes microscopic colitis
- Fever
- CKD
- H/o gastric bypass duodenal switch 2008
- Anemia of chronic disease
- H/o diverticulosis
- BPH
- UVP stone
Impression
- Norovirus negative along with rest of stool studies
- Diarrhea did not improve despite loperamide 2mg Q8H standing and questran BID. Hold these for now
- Recommend colytle now 6L due to poor prep in past
- CLD now and NPO at [facility] for colonoscopy with bx tomorrow
Will follow with you
Subjective
Subjective
Date of Service: November 05, 2024
Reports one BM yesterday but over 9 episodes overnight. Denies abd pain, nausea/vomiting
Objective
Data Reviewed
Laboratory Data:
Laboratory Results
11/05/24 05:45
11/05/24 05:45
Laboratory Results
APTT Cancelled 11/05/24 07:21
Phosphorus 1.0 mg/dl (2.5-4.5) L 11/05/24 05:45
Magnesium 1.5 mg/dl (1.6-2.3) L 11/05/24 05:45
Total Bilirubin 0.7 mg/dl (0.2-1.3) 11/01/24 02:46
AST 25 U/L (17-59) 11/01/24 02:46
ALT 16 U/L (0-50) 11/01/24 02:46
Alkaline Phosphatase 82 U/L (38-126) 11/01/24 02:46
Vital Signs and I&O:
Vital Signs
Temp Pulse Resp BP Pulse Ox
98.1 F 79 18 129/73 96
11/05/24 06:59 11/05/24 06:00 11/05/24 06:00 11/05/24 06:00 11/05/24 06:00
I&O
11/04/24 11/05/24 11/06/24
06:59 06:59 06:59
Intake Total 4818 / 4818 2094 / 2094
Output Total 1450 / 1450 1650 / 1650
Balance 3368 / 3368 445 / 445
Physical Exam
Physical Exam
GEN: No acute distress, conversant, pleasant
HEENT: anicteric, extraocular movements intact, clear oropharynx without exudates
GI: soft, mildly-distended, not tender to palpation, normal active bowel sounds, no hepatosplenomegaly
EXT: warm, well perfused, no edema bilaterally
NEURO: AAOx3, non-focal
--- NOTE | 2024-11-05 10:06 | W.PN.NEPH.PH ---
Today's Communication / Plan
-
replete Phosp
maintain sodium bicarbonate infusion
ASHLEY improving
Assessment/Plan
-
74-year-old male complaining of watery brown diarrhea since 10/20 up to 8-10 times per day he states on 10/21 and 10/22 he developed a fever with Tmax of 102.5. He was on Ceftin from 09/21-2023 after clot removal from right ureter postop
UVJ stone removal. He had additional procedure on 10/11 status post cystoscopy right ureteroscopy with ureteral biopsy and fulguration, right ureteroscopy with complex laser lithotripsy, stone extraction and stent placement possible preop ABX.
recent admission 09/18 - 09/21/2024 status post obstructing right UVJ stone removal with clots in ureter stent was placed for additional stone removal October 11.
other past medical history includes CKD stage IIIb and follows with Dr. Valle , BPH, gout, hyperaldosteronism, biliopancreatic diversion with duodenal switch and Choledochoduodenostomy for weight loss in 2008 at [facility],
sleep apnea/CPAP, cervical fusion, ex-smoker, multiple renal calculi left and right with recent removals September 2024.
renal consultation for acute and chronic kidney disease will baseline creatinine 1.7 and acute metabolic acidosis
impression:
Diarrhea-pancolitis on CT
acute on chronic kidney disease stage IIIB the baseline creatinine 1.7 with admitting creatinine of 2.2.
Acute metabolic acidosis=Anion gap plus a Non gap metabolic acidosis.
History of recent renal calculi calcium oxalate stones>with recent antibiotic use
History of hyper Fuad.
Acute diarrhea
acute hypocalcemia/hyponatremia
ureteral stent
plan:
ASHLEY-cr improving to 1.1, grossly nonoliguric
hypocalcemia is persistent with drop to 7 today
phosp low at 1.0, in need of repletion
continue po yunier and vit D, calcitriol,hypocalcemia persists and down to 7 today
pt reports prolia injection few weeks ago and not able to take PO yunier, vit D is likely is the reason for severe hypocalcemia on admit
persistent met acidosis specially with ongoing diarrhea, hopefully he can now tolerate bicarb IVF-change to 1/2 NS with 75 meq bicarb/liter
Maintain oral bicarbonate
not trying to be aggressive bicarb repletion since risk of hypocalcemia
BP stable off pressors >48hrs
avoid nephrotoxins
Hgb low, heme neg-transfusion per primary, adequate fe stores
edema mostly in UEs, US pending.\\
c/o dysuria with h/o U stent, checked UA, also notes that he is due for stent exchange too-likely need eval
d/w pt and nursing
-
-
Date of Service: November 05, 2024
CC / HPI / ROS
-
Chief Complaint:
ASHLEY
History of Present Illness:
ASHLEY/Cr down to 1.1
Calcium down to 7
acidosis persists 14
Na up to 137, k better 3.8
BP stable off levophed >24hrs
wt is increasing
Review of Systems:
no CP/SOB
diarrhea continuesd
tolerating po
has dysuria today
Labs
-
Labs:
WBC 6.6 10^3/uL (4.8-10.8) 11/05/24 05:45
RBC 2.60 10^6/uL (4.70-6.10) L 11/05/24 05:45
Hgb 7.9 g/dL (13.0-18.0) L 11/05/24 05:45
Hct 24.6 % (39.0-52.0) L 11/05/24 05:45
Plt Count 191 10^3/uL (130-400) 11/05/24 05:45
Sodium 137 mmol/L (135-145) 11/05/24 05:45
Potassium 4.1 mmol/L (3.5-5.1) 11/05/24 05:45
Chloride 116 mmol/L (98-107) H 11/05/24 05:45
Carbon Dioxide 14 mmol/L (22-30) L* 11/05/24 05:45
BUN 17 mg/dl (9-20) 11/05/24 05:45
Creatinine 1.1 mg/dL (0.7-1.3) 11/05/24 05:45
eGFR > 60.00 11/05/24 05:45
Glucose 91 mg/dl (70-99) 11/05/24 05:45
Calcium 7.0 mg/dl (8.4-10.2) L 11/05/24 05:45
Phosphorus 1.0 mg/dl (2.5-4.5) L 11/05/24 05:45
Albumin 2.7 g/dl (3.5-5.0) L 11/01/24 02:46
Physical Exam
-
Vital Signs:
Vital Signs
Temp Pulse Resp BP Pulse Ox
98.1 F 79 18 129/73 96
11/05/24 06:59 11/05/24 06:00 11/05/24 06:00 11/05/24 06:00 11/05/24 06:00
Cardiovascular:: Regular rate and rhythm
Respiratory:: Bilateral: CTA
Lung Excursion:: Normal
Abdomen:: Nontender and Soft
Extremity Edema:: +1: Bilateral:
Becerra Catheter: No
Other Findings::
right UE 2+, left UE 1+
[2024-11-05] MEDS: DULCOLAX 10 MG PO (10:56)
[2024-11-05] MEDS: NULYTELY SOLUTION 2 LITERS PO (10:56)
[2024-11-05] MEDS: SODIUM BICARBONATE 1075 MEQ IV (11:02)
[2024-11-05 11:14] LABS: % Basophils 0.3 % (0-2); % Eosinophils 0.6 % (0-6); % Immature Granulocytes 0.7 % (0-0.5); % Lymphocytes 12.9 % (20.5-51.1); % Neutrophils 80.5 % (42.2-75.2); Absolute Immature Granulocytes 0.1 10^3/uL (0-0.05); Absolute Lymphocytes 0.9 10^3/uL (1.2-3.4); Absolute Monocytes 0.3 10^3/uL (0.1-0.6); Absolute Neutrophils 5.5 10^3/uL (1.4-6.5)
[2024-11-05] MEDS: SODIUM PHOSPHATE 255 MEQ IV (12:04)
[2024-11-05 12:35] LABS: Erythrocyte Sed Rate 59 mm/hour (0-20)
--- NOTE | 2024-11-05 13:00 | WOUNDNOTE ---
WO RN NOTE: Reviewed chart and met with patient. Patient visited for worsening skin to buttocks related to new fecal incontinence. Patient is alert and oriented and turns easily with minimal assistance. Buttocks is slightly red and blanchable and
there are two small superficial linear scabbed areas, likely due to fecal incontinence. Patient reports increased 'soreness' to buttock/ anal area due to frequent incontinence and current colonoscopy prep. Will recommend Extra Strength Desitin.
Heels intact and off-loaded on pillows. IVET Coronado given update. Will update care plan and follow as needed.
[2024-11-05 14:03] LABS: COVID-19 Antigen Negative (Negative)
[2024-11-05] MEDS: MAGNESIUM SULFATE 100 IV (15:55)
[2024-11-05] MEDS: ASPIR LOW (ENTERIC COATED) 81 MG PO (16:45)
[2024-11-05] MEDS: FLOMAX 0.8 MG PO (16:46)
[2024-11-05] MEDS: LOVENOX 40 MG SC (16:46)
[2024-11-05] MEDS: ZYLOPRIM 300 MG PO (16:47)
--- NOTE | 2024-11-05 17:17 | PTCARENOTE ---
Patient completed an entire container of the colonoscopy prep. Patient is burping and having a large amount of stool output. At this time patient wants to take a break. Discussed the plan of care and patient is going to continue to after sipping on
some broth.
[2024-11-05] MEDS: NULYTELY SOLUTION 4 LITERS PO (17:28)
[2024-11-06] VITALS (12 sets, daily range): BP systolic 123–156; BP diastolic 60–99; PULSE 69–123; O2SAT 98; BMI 29.1
[2024-11-06] MEDS: DRISDOL (VITAMIN D2) PO ×2 (01:43→10:22)
[2024-11-06] MEDS: SODIUM BICARBONATE PO ×2 (01:44→10:22)
[2024-11-06] MEDS: FIBERCON PO ×2 (01:44→10:22)
[2024-11-06] MEDS: OSCAL CAL 500 PO ×2 (01:44→10:22)
[2024-11-06] MEDS: VISBIOME PO ×2 (01:44→10:23)
[2024-11-06] MEDS: THERAGRAN PO ×2 (01:44→10:23)
[2024-11-06] MEDS: ROCALTROL PO ×2 (01:44→10:22)
[2024-11-06] MEDS: MELATONIN PO (01:44)
[2024-11-06 05:42] LABS: Ionized Calcium 1.03 mMOL/L (1.15-1.33)
[2024-11-06 05:46] LABS: Hematocrit 24.9 % (39.0-52.0); Hemoglobin 8.2 g/dL (13.0-18.0); Mean Corp Hgb Conc. 32.9 g/dL (33.0-37.0); Mean Corpuscular Hgb 30.9 pg (27.0-31.0); Mean Platelet Volume 9.9 fL (7.4-10.4); Platelet Count 187 10^3/uL (130-400); Red Blood Cell Count 2.65 10^6/uL (4.70-6.10); Red Cell Dist. Width 19.2 % (11.5-14.5); White Blood Cell Count 5.6 10^3/uL (4.8-10.8)
[2024-11-06 06:32] LABS: Blood Urea Nitrogen 15 mg/dl (9-20); Calcium 6.5 mg/dl (8.4-10.2); Carbon Dioxide 20 mmol/L (22-30); Chloride 112 mmol/L (98-107); Estimated Creatinine Clearance 65 ml/min; Glucose 79 mg/dl (70-99); Phosphorus 1.6 mg/dl (2.5-4.5); Potassium 3.7 mmol/L (3.5-5.1); Sodium 137 mmol/L (135-145); eGFR > 60.00
--- NOTE | 2024-11-06 07:00 | PTCARENOTE ---
received report from day shift RN. Pt aaox3. 97% on 2LNC. IVF infusing (see MAR). Pt NSR on monitor with monomorphic PVCs. Pt had 8 unmeasurable liquid bowel movements throughout the shift, each requiring a full bed change. Skin monitored closely.
CHG wipes completed each time and Desenex and barrier cream applied. Ca this am 6.5 and GEORGE Randolph notified. IV calcium gluconate Rx'd.
--- NOTE | 2024-11-06 07:12 | W.PN.HOSP.TC ---
Today's Communication/Plan
-
NPO for colonoscopy today
replete electrolytes
Assessment / Plan
Assessment / Plan
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
ongoing severe diarrhea since 10/20 with intermittent fevers. No abdominal pain or vomiting.
#Bandemia unclear etiology concern for infectious diarrhea
#Pancolitis on CT scanning
#Acute diarrhea
Persistent watery brown diarrhea 10/20�current total 11 days with fever on 10/21- 10/22 Tmax 102.5
Ceftin 09/21 to 09/26 post of fever cysto with stone removal and stent
WBC 6.8, bands 11%, pancolitis on CT scanning
C. difficile negative, norovirus neg, stool cultures neg to date
Diarrhea initially improved with Imodium scheduled, Questran twice daily, however since worsened
Patient's procalcitonin was 17.96 upon admission, recheck however notes significant improvement following a course of abx Zosyn
ID eval appreciated giardia/crypto COVID neg, no further abx recommended at this time.
GI eval appreciated NPO for colonoscopy today
#Dysuria
#Hx ureter stent
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
# Obstructing right UVJ stones S/p cystoscopy and stone extraction by Dr. Hardy on 09/19/2024.
#History of multiple renal stone extraction in the past
#Patient also had large volume dense clots in the ureter with difficult visualization. Stent was placed. 09/19/2024
recent Urinalysis appreciated not suggestive of UTI
Urology eval appreciated
#Right upper extremity Superficial VT
conservative mgmt, warm compress prn
therapeutic anticoagulation not indicated
#Acute on chronic anemia
Iron studies are adequate, B12/folic acid levels normal
Hemoglobin 7.3 today, minimally improved from 6.8 status post 1 unit packed red blood cells 11/03, was 8.4 admission
LDH wnl, haptoglobin pending, fibrinogen wnl
received 2PRBC over the course of hospitalization
Hematology eval appreciated appreciated
#Pancreatic cyst
Follow-up with GI in the office
#Metabolic acidosis 2/2 diarrheal losses/decreased oral intake
#ASHLEY on CKD 3B 2/2 diarrheal losses/decreased oral intake
-Hold Farxiga
-Hold eplerenone 25 mg p.o. every 48 H-patient has not taken since 10/28/2024
-Appreciate nephrology input, continue management as per nephrology
-Creatinine improved from 2.2 on admission
-Trend creatinine, no nephrotoxic drugs/NSAIDs
#Multifactorial shock, likely secondary to sepsis and hypovolemia from diarrhea
#Hx HTN�benign
-Hold eplerenone 25 mg p.o. every 48 H-patient has not taken since 10/28/2024
-Hold Farxiga
-PICC inserted, now off Levophed since 11/02
-Flomax initially held since resumed with improvement in pressures
#Severe HYPOCALCEMIA
#Vitamin D deficiency
Secondary to malabsorption and Prolia injection on 10/01
No reported muscle cramps or twitching
Improving, continue calcitriol, calcium & vitamin D supplements
# Hyperaldosteronism
Hold eplerenone secondary to hypotension and ASHLEY
#Hypokalemia secondary to diarrhea
Repleted and resolved
#Hyponatremia
Mild, monitor
#Stage II pressure injury on buttock, present upon admission
Continue wound care
#Chronic bilateral lower extremity edema
Ordered TEDS
# Enlarged prostate-continue Flomax
# History of gout-continue allopurinol
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
# Sleep apnea-continue CPAP
# History of cervical fusion
# Ex-smoker
DVT prophylaxis Lovenox
Full code
Discussed with patient and patient's Luz Maria
Total time spent to see the patient on the floor, examine the patient, review data and lab results, discuss treatment plan with patient, nursing staff around 45 minutes.
Physical Exam
General: No acute distress
HEENT: Normocephalic, Atraumatic, EOMI, MMM
Respiratory: Clear to Auscultation bilaterally
Cardiac: Normal S1/S2, Regular Rate and Rhythm
GI: Soft, Nontender, Nondistended, Normal Bowel Sounds
Extremities: No Clubbing, Cyanosis
Bilateral lower extremity edema noted
Right upper extremity edema noted
Neuro: Awake Alert Conversant Coherent
Psych: Calm, Cooperative
Anticipated Discharge: 24 - 48 hours
Subjective/Interval History
-
Date of Service: November 06, 2024
No acute distress sitting up comfortably in chair awaiting colonoscopy. reports diarrhea resolved since bowel prep completion. Notes urinary urgency.
Objective Data
-
Labs:
Laboratory Results
11/05/24 11/06/24
14:30 05:34
WBC 5.6
Hgb 8.2 L
Hct 24.9 L
Plt Count 187
APTT Cancelled
Sodium 137
Potassium 3.7
Chloride 112 H
Carbon Dioxide 20 L
BUN 15
Creatinine 1.0
Glucose 79
Calcium 6.5 L*
Vital Signs:
Vital Signs
Temp Pulse Resp BP Pulse Ox
98.6 F 70 17 140/60 95
11/06/24 03:18 11/06/24 06:00 11/06/24 06:00 11/06/24 06:00 11/06/24 06:00
I&O
11/05/24 11/06/24 11/07/24
06:59 06:59 06:59
Intake Total 2094 2470 / 2470
Output Total 1649
Balance 445 / 445 2470 / 2470
[2024-11-06] MEDS: CALCIUM GLUCONATE 100 IV (07:18)
[2024-11-06] MEDS: POTASSIUM PHOSPHATE 259.0909 MEQ IV (08:40)
[2024-11-06] MEDS: SODIUM BICARBONATE 1075 MEQ IV (09:00)
--- NOTE | 2024-11-06 09:03 | W.PN.ONC2 ---
Today's Communication / Plan
-
trend CBC
f/u colonoscopy
Impression
Impression
Diarrhea/pancolitis
Kidney stones status post removal and right ureteral stent placement
ASHLEY on CKD -Baseline CKD 3, creatinine 1.7
Pressure ulcer on buttock
History of duodenal switch for weight loss
Diverticulosis
Chronic recurrent iron deficiency
Anemia, suspect multifactorial
Right upper extremity superficial vein thrombosis, non-occlusive
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
Plan
Plan
R basilic vein thrombosis is superficial, anticoagulation not needed unless symptomatic. Warm compresses and elevation when possible.
Suspect anemia is related to inflammatory state but cannot exclude occult blood loss in patient with recurrent iron def, GI plan for scope today
f/u Epo level, SPEP, SFLC.
Iron stores currently replete s/p IV iron 09/28.
non-invasive papillary urothelial carcinoma in ureter. Defer to Dr. Hardy regarding management.
Subjective/Objective
Subjective
no new complaints
sitting in chair NAD
Vital Signs:
Vital Signs
Temp Pulse Resp BP Pulse Ox
99.0 F 70 17 140/60 95
11/06/24 07:13 11/06/24 06:00 11/06/24 06:00 11/06/24 06:00 11/06/24 06:00
Lab Results:
Laboratory Data
WBC 5.6 10^3/uL (4.8-10.8) 11/06/24 05:34
Hgb 8.2 g/dL (13.0-18.0) L 11/06/24 05:34
Plt Count 187 10^3/uL (130-400) 11/06/24 05:34
APTT Cancelled 11/05/24 14:30
eGFR > 60.00 11/06/24 05:34
Physical Exam
HEENT: No Jaundice
Cardiology: Normal Sinus Rhythm
Pulmonary: Clear
GI: Soft
Extremities: Pulses Present
--- NOTE | 2024-11-06 09:11 | W.PN.NEPH.PH ---
Today's Communication / Plan
-
IV fluids changed
Will provide calcium infusion
Will provide sodium phosphate
For colonoscopy today
Assessment/Plan
-
74-year-old male complaining of watery brown diarrhea since 10/20 up to 8-10 times per day he states on 10/21 and 10/22 he developed a fever with Tmax of 102.5. He was on Ceftin from 09/21-2023 after clot removal from right ureter postop
UVJ stone removal. He had additional procedure on 10/11 status post cystoscopy right ureteroscopy with ureteral biopsy and fulguration, right ureteroscopy with complex laser lithotripsy, stone extraction and stent placement possible preop ABX.
recent admission 09/18 - 09/21/2024 status post obstructing right UVJ stone removal with clots in ureter stent was placed for additional stone removal October 11.
other past medical history includes CKD stage IIIb and follows with Dr. Valle , BPH, gout, hyperaldosteronism, biliopancreatic diversion with duodenal switch and Choledochoduodenostomy for weight loss in 2008 at [facility],
sleep apnea/CPAP, cervical fusion, ex-smoker, multiple renal calculi left and right with recent removals September 2024.
renal consultation for acute and chronic kidney disease will baseline creatinine 1.7 and acute metabolic acidosis
impression:
Diarrhea-pancolitis on CT
acute on chronic kidney disease stage IIIB the baseline creatinine 1.7 with admitting creatinine of 2.2.
Acute metabolic acidosis=Anion gap plus a Non gap metabolic acidosis.
History of recent renal calculi calcium oxalate stones>with recent antibiotic use
History of hyper Fuad.
Acute diarrhea
acute hypocalcemia/hyponatremia
ureteral stent
plan:
ASHLEY-cr improving to 1.0, grossly nonoliguric
hypocalcemia is persistent with drop to 6.5 today
phosp low at 1.6, in need of additional repletion
continue po yunier and vit D, calcitriol,hypocalcemia persists and down to 7 today
pt reports prolia injection few weeks ago and not able to take PO yunier, vit D is likely is the reason for severe hypocalcemia on admit
Will change IV fluids from bicarb based to just 1/2NS to accommodate calcium repletion
Maintain oral bicarbonate
not trying to be aggressive bicarb repletion since risk of hypocalcemia
BP stable off pressors >48hrs
avoid nephrotoxins
Hgb low, heme neg-transfusion per primary, adequate fe stores
edema mostly in UEs, noted superficial clot of upper extremity
c/o dysuria with h/o U stent, checked UA, also notes that he is due for stent exchange too-likely need eval
d/w pt and nursing
-
-
Date of Service: November 06, 2024
CC / HPI / ROS
-
Chief Complaint:
ASHLEY
History of Present Illness:
ASHLEY/Cr down to 1.0
Calcium down to 6.5
acidosis improved to 20
Na up to 137, k better 3.7
BP stable off levophed
wt is increasing
Review of Systems:
no CP/SOB
diarrhea continues but complicated by colonoscopy prep
tolerating po
has dysuria today
Labs
-
Labs:
WBC 5.6 10^3/uL (4.8-10.8) 11/06/24 05:34
RBC 2.65 10^6/uL (4.70-6.10) L 11/06/24 05:34
Hgb 8.2 g/dL (13.0-18.0) L 11/06/24 05:34
Hct 24.9 % (39.0-52.0) L 11/06/24 05:34
Plt Count 187 10^3/uL (130-400) 11/06/24 05:34
Sodium 137 mmol/L (135-145) 11/06/24 05:34
Potassium 3.7 mmol/L (3.5-5.1) 11/06/24 05:34
Chloride 112 mmol/L (98-107) H 11/06/24 05:34
Carbon Dioxide 20 mmol/L (22-30) L 11/06/24 05:34
BUN 15 mg/dl (9-20) 11/06/24 05:34
Creatinine 1.0 mg/dL (0.7-1.3) 11/06/24 05:34
eGFR > 60.00 11/06/24 05:34
Glucose 79 mg/dl (70-99) 11/06/24 05:34
Calcium 6.5 mg/dl (8.4-10.2) L* 11/06/24 05:34
Phosphorus 1.6 mg/dl (2.5-4.5) L 11/06/24 05:34
Albumin 2.7 g/dl (3.5-5.0) L 11/01/24 02:46
Physical Exam
-
Vital Signs:
Vital Signs
Temp Pulse Resp BP Pulse Ox
99.0 F 70 17 140/60 95
11/06/24 07:13 11/06/24 06:00 11/06/24 06:00 11/06/24 06:00 11/06/24 06:00
Cardiovascular:: Regular rate and rhythm
Respiratory:: Bilateral: CTA
Lung Excursion:: Normal
Abdomen:: Nontender and Soft
Extremity Edema:: None: Bilateral:
Becerra Catheter: No
--- NOTE | 2024-11-06 09:18 | W.PN.ID1 ---
Addendum entered and electronically signed by Umu Ly MD 11/06/24 15:43:
Followed up colonoscopy report
Pseudomembranous Colitis without ulcerations - C difficile sent again and remains negative both antigen and toxin. C difficile also negative 11/01/24 - ruled out.
Differential: ischemic colitis, CMV (though would expect ulcerations, biopsy was sent), Vibrio infection (duration is quite long, less likely) collagenous colitis, IBD. Routine stool culture negative for Salmonella.
Next pickup for send out testing is noon tomorrow and patient unlikely to be able to provide a sample tonight given recent colonoscopy - will discuss possible exposures further (seafood) with patient in the AM
Original Note:
Date of Service
Date of Service: November 06, 2024
Today's Communication
will follow up colonoscopy - further recommendations pending that result
Assessment / Plan
Subacute Diarrhea
h/o gastric bypass with duodenal switch 2008 - baseline is 4 loose BM/day
Resolved ASHLEY on CKD
- for colonoscopy today - will follow up report, further recommendations pending that result
- UA 11/04 without significant pyuria, did not reflex to culture
- C difficile negative, stool cultures negative, norovirus pcr negative 11/03, giardia/crypto negative, covid ag negative
- PICC management per hospitalist
- will follow
Chief Complaint
-: Other (diarrhea)
Subjective / Review of Systems
afebrile
bp stable
bowel prep yesterday - then 8 liquid bowel movements through shift
colonoscopy today
no BMs since about 6 AM
in good spirits
Vital Signs / Physical Exam
Vital Signs
Vital Signs
Temp Pulse Resp BP Pulse Ox
99.0 F 70 17 140/60 95
11/06/24 07:13 11/06/24 06:00 11/06/24 06:00 11/06/24 06:00 11/06/24 06:00
Physical Exam
Constitutional: No Acute Distress and Chronically Ill
Cardiovascular: Regular Rate and S1/S2; Negative Murmur or Rub
Pulmonary: Clear and Symmetric; Negative Wheezes or Rales
Gastrointestinal: Soft, Non Tender, Non Distended and Normal Bowel Sounds
Skin: Warm and Dry; Negative Rash or Jaundice
Objective Data
Lab Data
Lab Results
11/06/24 05:34
11/06/24 05:34
ESR Cancelled 11/05/24 09:13
APTT Cancelled 11/05/24 14:30
Estimated Creat Clear 65 ml/min 11/06/24 05:34
Lactic Acid < 0.5 mmol/L (0.7-2.0) L 11/01/24 10:26
Total Bilirubin 0.7 mg/dl (0.2-1.3) 11/01/24 02:46
AST 25 U/L (17-59) 11/01/24 02:46
ALT 16 U/L (0-50) 11/01/24 02:46
Alkaline Phosphatase 82 U/L (38-126) 11/01/24 02:46
Most recent labs reviewed.
acidosis and ashley improving
deyanira 1.6 remains low
ionized ca low
mag pending
Micro Results:
10/31/24 12:53 Blood Culture - Final
Blood/Venous No Growth - Final Report
10/31/24 13:07 Blood Culture - Final
Blood/Venous No Growth - Final Report
11/05/24 12:27 Cryptosporidium/Giardia - Final
Feces/Stool Negative for Cryptosporidium and/or Giardia Lamblia
antigens.
11/01/24 13:49 Salmonella/Shigella Culture - Final
Feces/Stool No Salmonella, Shigella, Aeromonas or Plesiomonas species
isolated.
Campylobacter Culture - Final
No Campylobacter species isolated.
Shiga Toxin Test - Final
No E. coli Shiga Toxin 1 or 2 detected.
Stool Leukocytes - Final
11/03/24 11:57 - Final
Feces/Stool Negative for Norovirus GI and GII.
11/01/24 02:46 MRSA Screen - Final
Nose No Methicillin Resistant Staphylococcus aureus isolated.
11/01/24 13:48 C. difficile GDH Antigen & Toxins - Final
Feces/Stool Negative for toxigenic C.difficile
--- NOTE | 2024-11-06 09:37 | CON.MD ---
Consultation - Medical
-
see dictated note
pt known to me- recent stone procedure and ureteral bx- stent in place
have tried to remove as outpt- but pt developed sig gi issues
due for colonoscopy today
no urgent need for stent removal- will plan to do as outpt
continue flomax- restart pyridiu 100mg bid whn safe from med/nephrology standpoint
--- NOTE | 2024-11-06 10:38 | PTCARENOTE ---
Assumed care of pt from retail shift supervisor RN. Pt AAOx3. NSR on quality assurance monitor final with frequent PVCs. Spo2 95% on room air. VSS. Bowel movements clear. Awaiting call from GI lab for colonoscopy today. Pt remains NPO. Trending labs & repleting electrolytes as
needed. Nephrology following and adjusting IVF. Assessment documented. Pt OOB in chair. Call edmond in reach.
[2024-11-06 14:03] LABS: Erythropoietin (EPO) 8 mU/mL (4-27)
[2024-11-06] MEDS: 0.45%NACL 1000 IV (14:37)
--- NOTE | 2024-11-06 15:00 | CM ---
CM following re: discharge planning.
Reviewed pt's chart, met with pt. Pt is on room air, remains NPO, for colonoscopy today.
PT and OT evaluations noted - SNF vs home PT/OT recommended. Pt continues to express his plan to return back home with resumptions of private PT.
D/C plan: per pt's strong request, home with resumptions of private physical therapy 3 times per week at a gym.
CM will follow with discharge plan updates as hospitalization progresses
[2024-11-06] MEDS: OSCAL CAL 500 500 MG PO ×2 (15:49→22:11)
[2024-11-06] MEDS: THERAGRAN 1 TABLET PO ×2 (15:50→22:11)
[2024-11-06] MEDS: SODIUM BICARBONATE 1300 MG PO ×2 (15:50→22:11)
[2024-11-06 16:39] LABS: Haptoglobin 111 mg/dL (30-200)
[2024-11-06] MEDS: FLOMAX 0.8 MG PO (17:13)
[2024-11-06] MEDS: ZYLOPRIM 300 MG PO (17:13)
[2024-11-06] MEDS: ASPIR LOW (ENTERIC COATED) 81 MG PO (17:13)
[2024-11-06] MEDS: LOVENOX 40 MG SC (17:13)
[2024-11-06] MEDS: FIBERCON 1250 MG PO (19:44)
[2024-11-06] MEDS: DRISDOL (VITAMIN D2) 300000 UNITS PO (19:44)
[2024-11-06] MEDS: ROCALTROL 2 MCG PO (19:45)
[2024-11-06] MEDS: Pyridium 100 MG PO (19:46)
[2024-11-06] MEDS: VISBIOME 1 CAP PO (19:46)
--- NOTE | 2024-11-06 21:59 | PTCARENOTE ---
Pt received from sophia COONEY. Pt AAOx3. pt NSR on monitor with 1st degree heart block, HR 60. Pt at bedside. Using urinal to void. Took HS pills with water. Call light in reach. Safe environment maintained.
[2024-11-06] MEDS: MELATONIN 10 MG PO (23:04)
[2024-11-07] VITALS (10 sets, daily range): BP systolic 107–160; BP diastolic 59–83; BMI 28.8
[2024-11-07] MEDS: 0.45%NACL 1000 IV (04:55)
[2024-11-07 05:21] LABS: Hematocrit 23.9 % (39.0-52.0); Hemoglobin 7.8 g/dL (13.0-18.0); Mean Corp Hgb Conc. 32.6 g/dL (33.0-37.0); Mean Corpuscular Volume 94.8 fL (80.0-94.0); Mean Platelet Volume 10.1 fL (7.4-10.4); Platelet Count 176 10^3/uL (130-400); Red Blood Cell Count 2.52 10^6/uL (4.70-6.10); Red Cell Dist. Width 19.1 % (11.5-14.5); White Blood Cell Count 4.3 10^3/uL (4.8-10.8)
[2024-11-07 06:13] LABS: Blood Urea Nitrogen 14 mg/dl (9-20); Calcium 6.4 mg/dl (8.4-10.2); Carbon Dioxide 22 mmol/L (22-30); Chloride 110 mmol/L (98-107); Estimated Creatinine Clearance 65 ml/min; Glucose 82 mg/dl (70-99); Magnesium 1.7 mg/dl (1.6-2.3); Phosphorus 1.8 mg/dl (2.5-4.5); Potassium 4.2 mmol/L (3.5-5.1); Sodium 136 mmol/L (135-145); eGFR > 60.00
--- NOTE | 2024-11-07 07:59 | W.PN.HOSP.TC ---
Today's Communication/Plan
-
Stable for downgrade to Tele
replete electrolytes
diet as per GI
monitor H&H
Assessment / Plan
Assessment / Plan
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
ongoing severe diarrhea since 10/20 with intermittent fevers. No abdominal pain or vomiting.
#Bandemia unclear etiology concern for infectious diarrhea
#Pancolitis on CT scanning
#Acute diarrhea
Persistent watery brown diarrhea 10/20�current total 11 days with fever on 10/21- 10/22 Tmax 102.5
Ceftin 09/21 to 09/26 post of fever cysto with stone removal and stent
WBC 6.8, bands 11%, pancolitis on CT scanning
C. difficile negative, norovirus neg, stool cultures neg to date
Diarrhea initially improved with Imodium scheduled, Questran twice daily, however since worsened
Patient's procalcitonin was 17.96 upon admission, recheck however notes significant improvement following a course of abx Zosyn
ID eval appreciated giardia/crypto COVID neg, no further abx recommended at this time.
GI eval appreciated colonoscopy performed notable for pseudomembranous colitis w/o ulcerations, cdiff repeated neg
Low residue and low lactose diet as per GI
#Dysuria
#Hx ureter stent
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
# Obstructing right UVJ stones S/p cystoscopy and stone extraction by Dr. Hardy on 09/19/2024.
#History of multiple renal stone extraction in the past
#Patient also had large volume dense clots in the ureter with difficult visualization. Stent was placed. 09/19/2024
recent Urinalysis appreciated not suggestive of UTI
Urology eval appreciated Pyridium 100 mg BID started, cont
#Right upper extremity Superficial VT
conservative mgmt, warm compress prn
therapeutic anticoagulation not indicated
#Acute on chronic anemia
Iron studies are adequate, B12/folic acid levels normal
Hemoglobin 7.3 today, minimally improved from 6.8 status post 1 unit packed red blood cells 11/03, was 8.4 admission
LDH wnl, haptoglobin pending, fibrinogen wnl
received 2PRBC over the course of hospitalization
Hematology eval appreciated
#Pancreatic cyst
Follow-up with GI in the office
#Metabolic acidosis 2/2 diarrheal losses/decreased oral intake
#ASHLEY on CKD 3B 2/2 diarrheal losses/decreased oral intake
-Hold Farxiga
-Hold eplerenone 25 mg p.o. every 48 H-patient has not taken since 10/28/2024
-Appreciate nephrology input, continue management as per nephrology
-Creatinine improved from 2.2 on admission
-Trend creatinine, no nephrotoxic drugs/NSAIDs
#Multifactorial shock, likely secondary to sepsis and hypovolemia from diarrhea
#Hx HTN�benign
-Hold eplerenone 25 mg p.o. every 48 H-patient has not taken since 10/28/2024
-Hold Farxiga
-PICC inserted, now off Levophed since 11/02
-Flomax initially held since resumed with improvement in pressures
#Severe HYPOCALCEMIA
#Vitamin D deficiency
Secondary to malabsorption and Prolia injection on 10/01
No reported muscle cramps or twitching
Improving, continue calcitriol, calcium & vitamin D supplements
# Hyperaldosteronism
Hold eplerenone secondary to hypotension and ASHLEY
#Hypokalemia secondary to diarrhea
Repleted and resolved
#Hyponatremia
Mild, monitor
#Stage II pressure injury on buttock, present upon admission
Continue wound care
#Chronic bilateral lower extremity edema
Ordered TEDS
# Enlarged prostate-continue Flomax
# History of gout-continue allopurinol
# History of biliopancreatic diversion duodenal switch with [facility]ed[facility]oduoden[facility])
# Sleep apnea-continue CPAP
# History of cervical fusion
# Ex-smoker
DVT prophylaxis Lovenox
Full code
Stable for downgrade to Tele
Total time spent to see the patient on the floor, examine the patient, review data and lab results, discuss treatment plan with patient, nursing staff around 45 minutes.
Physical Exam
General: No acute distress
HEENT: Normocephalic, Atraumatic, EOMI, MMM
Respiratory: Clear to Auscultation bilaterally
Cardiac: Normal S1/S2, Regular Rate and Rhythm
GI: Soft, Nontender, Nondistended, Normal Bowel Sounds
Extremities: No Clubbing, Cyanosis
Bilateral lower extremity edema noted
Right upper extremity edema noted
Neuro: Awake Alert Conversant Coherent
Psych: Calm, Cooperative
Anticipated Discharge: 24 - 48 hours
Subjective/Interval History
-
Date of Service: November 07, 2024
Seen and examined at bedside in no acute distress resting comfortably in bed. Diarrhea persists though frequency is significantly less, improved as per patient.
Objective Data
-
Labs:
Laboratory Results
11/07/24
05:05
WBC 4.3 L
Hgb 7.8 L
Hct 23.9 L
Plt Count 176
Sodium 136
Potassium 4.2
Chloride 110 H
Carbon Dioxide 22
BUN 14
Creatinine 1.0
Glucose 82
Calcium 6.4 L*
Vital Signs:
Vital Signs
Temp Pulse Resp BP Pulse Ox
98.1 F 66 18 125/69 94
11/07/24 04:40 11/07/24 06:00 11/07/24 06:00 11/07/24 06:00 11/07/24 06:00
I&O
11/06/24 11/07/24 11/08/24
06:59 06:59 06:59
Intake Total 4270 / 4270 480 / 480
Output Total 2074
Balance 4270 / 4270 -1595 / -1595
[2024-11-07] MEDS: DRISDOL (VITAMIN D2) 300000 UNITS PO ×2 (08:52→21:59)
[2024-11-07] MEDS: ROCALTROL 2 MCG PO ×2 (08:53→20:47)
[2024-11-07] MEDS: FIBERCON 1250 MG PO ×2 (08:53→20:50)
[2024-11-07] MEDS: THERAGRAN 1 TABLET PO ×3 (08:53→22:00)
[2024-11-07] MEDS: OSCAL CAL 500 500 MG PO ×3 (08:53→22:00)
[2024-11-07] MEDS: SODIUM BICARBONATE 1300 MG PO ×3 (08:53→22:00)
[2024-11-07] MEDS: VISBIOME 1 CAP PO ×2 (08:53→20:50)
[2024-11-07] MEDS: Pyridium 100 MG PO ×2 (08:53→20:50)
--- NOTE | 2024-11-07 09:05 | W.PN.ID1 ---
Date of Service
Date of Service: November 07, 2024
Today's Communication
await pathology
Assessment / Plan
Pseudomembraneous Colitis
Subacute Diarrhea
h/o gastric bypass with duodenal switch 2008 - baseline is 4 loose BM/day
Resolved ASHLEY on CKD
Right double-J ureteral stent
- Pseudomembranous Colitis without ulcerations - C difficile sent again and remains negative both antigen and toxin. C difficile ag and toxin also negative 11/01/24 - ruled out.
- Differential: collagenous colitis, IBD, ischemic colitis (less likely without ischemic changes at colonoscopy, pancolitis), CMV (though would expect ulcerations which were not seen, biopsy was sent, I have also sent plasma viral load), Vibrio
infection (duration is quite long and patient without exposure history, very unlikely). Stool culture negative for Salmonella.
- stool cultures negative, norovirus pcr negative 11/03, giardia/crypto negative, covid ag negative
- PICC management per hospitalist
- will follow
Chief Complaint
-: Other (diarrhea, Pseudomembraneous colitis)
Subjective / Review of Systems
afebrile
bp stable
no BMs recorded yet today
no seafood ingestion that he can recall in the last month
Vital Signs / Physical Exam
Vital Signs
Vital Signs
Temp Pulse Resp BP Pulse Ox
98.1 F 66 18 125/69 94
11/07/24 04:40 11/07/24 06:00 11/07/24 06:00 11/07/24 06:00 11/07/24 06:00
Physical Exam
Constitutional: No Acute Distress
Cardiovascular: Regular Rate and S1/S2; Negative Murmur or Rub
Pulmonary: Clear and Symmetric; Negative Wheezes or Rales
Gastrointestinal: Soft, Non Tender, Non Distended and Normal Bowel Sounds
Skin: Warm and Dry; Negative Rash or Jaundice
Objective Data
Lab Data
Lab Results
11/07/24 05:05
11/07/24 05:05
ESR Cancelled 11/05/24 09:13
APTT Cancelled 11/05/24 14:30
Estimated Creat Clear 65 ml/min 11/07/24 05:05
Lactic Acid < 0.5 mmol/L (0.7-2.0) L 11/01/24 10:26
Total Bilirubin 0.7 mg/dl (0.2-1.3) 11/01/24 02:46
AST 25 U/L (17-59) 11/01/24 02:46
ALT 16 U/L (0-50) 11/01/24 02:46
Alkaline Phosphatase 82 U/L (38-126) 11/01/24 02:46
Most recent labs reviewed.
Micro Results:
11/06/24 13:12 C. difficile GDH Antigen & Toxins - Final
Feces/Stool Negative for toxigenic C.difficile
10/31/24 12:53 Blood Culture - Final
Blood/Venous No Growth - Final Report
10/31/24 13:07 Blood Culture - Final
Blood/Venous No Growth - Final Report
11/05/24 12:27 Cryptosporidium/Giardia - Final
Feces/Stool Negative for Cryptosporidium and/or Giardia Lamblia
antigens.
11/01/24 13:49 Salmonella/Shigella Culture - Final
Feces/Stool No Salmonella, Shigella, Aeromonas or Plesiomonas species
isolated.
Campylobacter Culture - Final
No Campylobacter species isolated.
Shiga Toxin Test - Final
No E. coli Shiga Toxin 1 or 2 detected.
Stool Leukocytes - Final
11/03/24 11:57 - Final
Feces/Stool Negative for Norovirus GI and GII.
11/01/24 02:46 MRSA Screen - Final
Nose No Methicillin Resistant Staphylococcus aureus isolated.
01/02/25 13:48 C. difficile GDH Antigen & Toxins - Final
Feces/Stool Negative for toxigenic C.difficile
[2024-11-07] MEDS: CALCIUM GLUCONATE 100 IV (11:31)
--- NOTE | 2024-11-07 11:48 | W.PN.GI.CBS2 ---
Today's Communication / Plan
-
-Colitis noted in the entire examined colon, C. difficile negative x 2, cultures, norovirus, stool white cells all negative
Unclear if this is infectious/inflammatory colitis, await biopsies from the colonoscopy. Also took biopsies for HSV and CMV.
Okay for low residue and low lactose diet.
Once acute episode resolves, he he will need a full colonoscopy.
Anemia, acute on chronic without any evidence of overt GI bleeding
Could be multifactorial
For now not on PPI.
Will need outpatient follow-up. He did receive previous IV iron infusions.
At discharge, if C. difficile continues to be negative, okay to start PPI.
He will need EGD and colonoscopy as outpatient.
Assessment / Plan
-
Kamar is a 74yo M with h/o gastric bypass with duodenal switch 2008 and CKD who was admitted for dehydration in setting of acute diarrhea. Recently several urologic interventions and was on abx in Aug 2024. Generally baseline 4BMs per day. Now
more frequent s/p abx use. Also reports fever. Vitals reviewed. Labs reviewed Hbg down to 6.8 with iron panel suggestive of anemia of chronic disease. FOBT is negative. CTAP reviewed with pancolitis. Last Cscope was 2016
Impression
- Non bloody diarrhea and pancolitis on CT exam
Suspect infections or abx related
Other ddx includes microscopic colitis
- Fever
- CKD
- H/o gastric bypass duodenal switch 2008
- Anemia of chronic disease
- H/o diverticulosis
- BPH
- UVP stone
s/p colonoscopy 11/06/24
Incomplete until transverse colon due to diffuse colitis
- Preparation of the colon was poor.
- Pseudomembranous colitis.
- Diverticulosis in the sigmoid colon and in the
descending colon.
Impression
-Colitis noted in the entire examined colon, C. difficile negative x 2, cultures, norovirus, stool white cells all negative
Unclear if this is infectious/inflammatory colitis, await biopsies from the colonoscopy. Also took biopsies for HSV and CMV.
Okay for low residue and low lactose diet.
Once acute episode resolves, he he will need a full colonoscopy.
Anemia, acute on chronic without any evidence of overt GI bleeding
Could be multifactorial
For now not on PPI.
Will need outpatient follow-up. He did receive previous IV iron infusions.
At discharge, if C. difficile continues to be negative, okay to start PPI.
He will need EGD and colonoscopy as outpatient.
Subjective
Subjective
Date of Service: November 07, 2024
Patient without any abdominal pain, had 4 loose bowel movements in the last 12 hours.
Objective
Data Reviewed
Laboratory Data:
Laboratory Results
11/07/24 05:05
11/07/24 05:05
Laboratory Results
APTT Cancelled 11/05/24 14:30
Phosphorus 1.8 mg/dl (2.5-4.5) L 11/07/24 05:05
Magnesium 1.7 mg/dl (1.6-2.3) 11/07/24 05:05
Total Bilirubin 0.7 mg/dl (0.2-1.3) 11/01/24 02:46
AST 25 U/L (17-59) 11/01/24 02:46
ALT 16 U/L (0-50) 11/01/24 02:46
Alkaline Phosphatase 82 U/L (38-126) 11/01/24 02:46
Vital Signs and I&O:
Vital Signs
Temp Pulse Resp BP Pulse Ox
98.1 F 66 18 125/69 94
11/07/24 04:40 11/07/24 06:00 11/07/24 06:00 11/07/24 06:00 11/07/24 06:00
I&O
11/06/24 11/07/24 11/08/24
06:59 06:59 06:59
Intake Total 4270 / 4270 480 / 480
Output Total 2074
Balance 4270 / 4270 -1594 / -1594
Physical Exam
Physical Exam
GI: Soft, Non Distended and Non Tender
[2024-11-07 11:55] LABS: tTG IgA Antibody 13.7 EU/ml (0-19); tTG IgG Antibody 9.3 EU/ml (0-19)
[2024-11-07 11:57] LABS: Albumin 2.21 g/dL (3.75-5.01); Alpha 1 Globulin 0.37 g/dL (0.19-0.46); Alpha 2 Globulin 0.68 g/dL (0.48-1.05); Free Kappa Light Chains,Quant 96.81 mg/L (3.30-19.40); Free Lambda Light Chains,Quant 64.67 mg/L (5.71-26.30); IgA 428 mg/dL (68-408); IgG 694 mg/dL (768-1632); IgM 179 mg/dL (35-263); Immunofixation Electrophoresis IFE Done; Total Protein-Electrophoresis 4.6 g/dL (6.3-8.2)
[2024-11-07] MEDS: SODIUM PHOSPHATE 255 MEQ IV (12:14)
--- NOTE | 2024-11-07 13:00 | PTCARENOTE ---
Assumed care of patient at beginning of this shift from previous RN. POx 95-98% while awake; however did drop to 87% while asleep. O2 2l n/c placed on patient with POx 98%. Patient stated this happens when he falls asleep. Patient c/o L rib pain
stating it was bruised. No ecchymosis noted at that site; there is ecchymosis on that side just below the waist. TT send to Dr Batres to make him aware; instructed to monitor at this time.
--- NOTE | 2024-11-07 14:28 | CM ---
CM following re: discharge planning.
Reviewed pt's chart, met with pt and pt's spouse at bedside. pt is aware he will be downgraded from IMU level of care and will be transferred to room 336.
IMM reviewed, placed on chart, pt has a copy.
Pt continues to express his plan to return back home with resumptions of private PT.
D/C plan: per pt's strong request, home with resumptions of private physical therapy 3 times per week at a gym.
CM will follow with discharge plan updates as hospitalization progress
--- NOTE | 2024-11-07 17:01 | PTCARENOTE ---
Report received from IMU. Assessment complete and VSS. Pt. oriented to unit and cleaned up after an episode of diarrhea. at bedside. Pt. states no further needs at this time.
--- NOTE | 2024-11-07 17:40 | W.PN.NEPH.PH ---
Today's Communication / Plan
-
cont IVF, replace prn yunier and phos
Assessment/Plan
-
impression:
Diarrhea-pancolitis on CT
acute on chronic kidney disease stage IIIB the baseline creatinine 1.7 with admitting creatinine of 2.2.
Acute metabolic acidosis=Anion gap plus a Non gap metabolic acidosis.
History of recent renal calculi calcium oxalate stones>with recent antibiotic use
History of hyper Fuad.
Acute diarrhea
acute hypocalcemia/hyponatremia
ureteral stent
plan:
ASHLEY-cr improving to 1.0, grossly nonoliguric
hypocalcemia is persistent with drop to 6.5 today
phosp low at 1.8, yunier low s/p IV reablement
continue po yunier and vit D, calcitriol
pt reports prolia injection few weeks ago and not able to take PO yunier, vit D is likely is the reason for severe hypocalcemia on admit
met acidosis stable, cotn 1/2 NS for vol repletion
Maintain oral bicarbonate
bp stable
avoid nephrotoxins
Hgb 7.8, heme neg-transfusion per primary, adequate fe stores
edema mostly in UEs, noted superficial clot of upper extremity
c/o dysuria with h/o U stent, checked UA, also notes that he is due for stent exchange too-no intervention per
s/p c scope-colitis noted, awaiting biopsy
d/w pt and
-
-
Date of Service: November 07, 2024
CC / HPI / ROS
-
Chief Complaint:
ASHLEY
History of Present Illness:
ASHLEY/Cr down to 1.0
Calcium down to 6.4
acidosis improved to 22
Na up to 136, k better 4.2, phjos low 1.8
BP stable
wt is increasing
Review of Systems:
no CP/SOB
diarrhea continues
tolerating po
Labs
-
Labs:
WBC 4.3 10^3/uL (4.8-10.8) L 11/07/24 05:05
RBC 2.52 10^6/uL (4.70-6.10) L 11/07/24 05:05
Hgb 7.8 g/dL (13.0-18.0) L 11/07/24 05:05
Hct 23.9 % (39.0-52.0) L 11/07/24 05:05
Plt Count 176 10^3/uL (130-400) 11/07/24 05:05
Sodium 136 mmol/L (135-145) 11/07/24 05:05
Potassium 4.2 mmol/L (3.5-5.1) 11/07/24 05:05
Chloride 110 mmol/L (98-107) H 11/07/24 05:05
Carbon Dioxide 22 mmol/L (22-30) 11/07/24 05:05
BUN 14 mg/dl (9-20) 11/07/24 05:05
Creatinine 1.0 mg/dL (0.7-1.3) 11/07/24 05:05
eGFR > 60.00 11/07/24 05:05
Glucose 82 mg/dl (70-99) 11/07/24 05:05
Calcium 6.4 mg/dl (8.4-10.2) L* 11/07/24 05:05
Phosphorus 1.8 mg/dl (2.5-4.5) L 11/07/24 05:05
Albumin 2.7 g/dl (3.5-5.0) L 11/01/24 02:46
Physical Exam
-
Vital Signs:
Vital Signs
Temp Pulse Resp BP Pulse Ox
97.5 F 73 16 114/59 97
11/07/24 16:00 11/07/24 16:00 11/07/24 16:00 11/07/24 16:00 11/07/24 16:00
Cardiovascular:: Regular rate and rhythm
Respiratory:: Bilateral: CTA
Lung Excursion:: Normal
Abdomen:: Nontender and Soft
Extremity Edema:: None: Bilateral:
Becerra Catheter: No
[2024-11-07] MEDS: ASPIR LOW (ENTERIC COATED) 81 MG PO (17:51)
[2024-11-07] MEDS: FLOMAX 0.8 MG PO (17:51)
[2024-11-07] MEDS: LOVENOX 40 MG SC (17:51)
[2024-11-07] MEDS: ZYLOPRIM 300 MG PO (17:51)
--- NOTE | 2024-11-07 18:47 | PTCARENOTE ---
Pt tele alarming for v-tach, 14 beat run. Pt asymptomatic. Dr. Batres notified, aware, and stated continue to monitor. Oncoming shift notified. Plan of care ongoing.
[2024-11-07] MEDS: MELATONIN 10 MG PO (23:16)
[2024-11-07 23:22] LABS: IgA 413 mg/dl (70-400)
[2024-11-08] VITALS (7 sets, daily range): BP systolic 118–163; BP diastolic 65–99; PULSE 89; BMI 28.0
[2024-11-08] MEDS: 0.45%NACL 1000 IV ×2 (02:32→20:50)
--- NOTE | 2024-11-08 03:01 | PTCARENOTE ---
Tele alarmed Vtach, 11 beats. Pt back in NSR w/ 1st degree HB and PVCs. Pt asymptomatic. BP 133/73, HR 68, 97% RA, RR 16, temp 97.8. [employer] notified. Electrolytes to be checked in morning labs. Plan of care ongoing.
[2024-11-08 06:38] LABS: Hematocrit 26.5 % (39.0-52.0); Hemoglobin 8.5 g/dL (13.0-18.0); Mean Corp Hgb Conc. 32.1 g/dL (33.0-37.0); Mean Corpuscular Hgb 30.8 pg (27.0-31.0); Mean Platelet Volume 10.6 fL (7.4-10.4); Platelet Count 177 10^3/uL (130-400); Red Blood Cell Count 2.76 10^6/uL (4.70-6.10); Red Cell Dist. Width 19.2 % (11.5-14.5)
--- NOTE | 2024-11-08 06:40 | W.PN.HOSP.TC ---
Today's Communication/Plan
-
replete electrolytes, cont IVF as per nephrology
follow cultures, pathology
Assessment / Plan
Assessment / Plan
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
ongoing severe diarrhea since 10/20 with intermittent fevers. No abdominal pain or vomiting.
#Bandemia unclear etiology concern for infectious diarrhea
#Pancolitis on CT scanning
#Acute diarrhea
Persistent watery brown diarrhea 10/20�current total 11 days with fever on 10/21- 10/22 Tmax 102.5
Ceftin 09/21 to 09/26 post of fever cysto with stone removal and stent
WBC 6.8, bands 11%, pancolitis on CT scanning
C. difficile negative, norovirus neg, stool cultures neg to date
Diarrhea initially improved with Imodium scheduled, Questran twice daily, however since worsened
Patient's procalcitonin was 17.96 upon admission, recheck however notes significant improvement following a course of abx Zosyn
ID eval appreciated giardia/crypto COVID neg, no further abx recommended at this time.
GI eval appreciated colonoscopy performed notable for pseudomembranous colitis w/o ulcerations, cdiff repeated neg
Low residue and low lactose diet as per GI
#Dysuria
#Hx ureter stent
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
# Obstructing right UVJ stones S/p cystoscopy and stone extraction by Dr. Hardy on 09/19/2024.
#History of multiple renal stone extraction in the past
#Patient also had large volume dense clots in the ureter with difficult visualization. Stent was placed. 09/19/2024
recent Urinalysis appreciated not suggestive of UTI
Urology eval appreciated Pyridium 100 mg BID started, cont
#Right upper extremity Superficial VT
conservative mgmt, warm compress prn
therapeutic anticoagulation not indicated
#Acute on chronic anemia
Iron studies are adequate, B12/folic acid levels normal
Hemoglobin 7.3 today, minimally improved from 6.8 status post 1 unit packed red blood cells 11/03, was 8.4 admission
LDH wnl, haptoglobin pending, fibrinogen wnl
received 2PRBC over the course of hospitalization
Hematology eval appreciated
#Pancreatic cyst
Follow-up with GI in the office
#Metabolic acidosis 2/2 diarrheal losses/decreased oral intake
#ASHLEY on CKD 3B 2/2 diarrheal losses/decreased oral intake
-Hold Farxiga
-Hold eplerenone 25 mg p.o. every 48 H-patient has not taken since 10/28/2024
-Appreciate nephrology input, continue management as per nephrology
-Creatinine improved from 2.2 on admission
-Trend creatinine, no nephrotoxic drugs/NSAIDs
#Multifactorial shock, likely secondary to sepsis and hypovolemia from diarrhea
#Hx HTN�benign
-Hold eplerenone 25 mg p.o. every 48 H-patient has not taken since 10/28/2024
-Hold Farxiga
-PICC inserted, now off Levophed since 11/02
-Flomax initially held since resumed with improvement in pressures
#Severe HYPOCALCEMIA
#Vitamin D deficiency
Secondary to malabsorption and Prolia injection on 10/01
No reported muscle cramps or twitching
Improving, continue calcitriol, calcium & vitamin D supplements
# Hyperaldosteronism
Hold eplerenone secondary to hypotension and ASHLEY
#Hypokalemia secondary to diarrhea
Repleted and resolved
#Hyponatremia
Mild, monitor
#Stage II pressure injury on buttock, present upon admission
Continue wound care
#Chronic bilateral lower extremity edema
Ordered TEDS
# Enlarged prostate-continue Flomax
# History of gout-continue allopurinol
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
# Sleep apnea-continue CPAP
# History of cervical fusion
# Ex-smoker
PT/OT appreciated Home health
DVT prophylaxis Lovenox
Full code
Total time spent to see the patient on the floor, examine the patient, review data and lab results, discuss treatment plan with patient, nursing staff around 45 minutes.
Physical Exam
General: No acute distress
HEENT: Normocephalic, Atraumatic, EOMI, MMM
Respiratory: Clear to Auscultation bilaterally
Cardiac: Normal S1/S2, Regular Rate and Rhythm
GI: Soft, Nontender, Nondistended, Normal Bowel Sounds
Extremities: No Clubbing, Cyanosis
Bilateral lower extremity edema noted
Right upper extremity edema noted
Neuro: Awake Alert Conversant Coherent
Psych: Calm, Cooperative
Anticipated Discharge: 24 - 48 hours
Subjective/Interval History
-
Date of Service: November 08, 2024
Reports persistent diarrhea.
Objective Data
-
Labs:
Laboratory Results
11/08/24
06:06
WBC 4.0 L
Hgb 8.5 L
Hct 26.5 L
Plt Count 177
Sodium Pending
Potassium Pending
Chloride Pending
Carbon Dioxide Pending
BUN Pending
Creatinine Pending
Glucose Pending
Calcium Pending
Vital Signs:
Vital Signs
Temp Pulse Resp BP Pulse Ox
97.8 F 68 16 133/73 97
11/08/24 02:59 11/08/24 02:59 11/08/24 02:59 11/08/24 02:59 11/08/24 02:59
I&O
11/06/24 11/07/24 11/08/24
06:59 06:59 06:59
Intake Total 4270 / 4270 480 / 480
Output Total 2074 / 2074 1050 / 1050
Balance 4270 / 4270 -1595 / -1595 -1050 / -1050
[2024-11-08 06:50] LABS: Blood Urea Nitrogen 14 mg/dl (9-20); Carbon Dioxide 23 mmol/L (22-30); Chloride 107 mmol/L (98-107); Estimated Creatinine Clearance 59 ml/min; Glucose 85 mg/dl (70-99); Magnesium 1.5 mg/dl (1.6-2.3); Phosphorus 1.8 mg/dl (2.5-4.5); Potassium 4.1 mmol/L (3.5-5.1); Sodium 135 mmol/L (135-145); eGFR > 60.00
[2024-11-08] MEDS: ROCALTROL 2 MCG PO ×2 (09:12→20:51)
[2024-11-08] MEDS: VISBIOME 1 CAP PO ×2 (09:13→20:52)
[2024-11-08] MEDS: DRISDOL (VITAMIN D2) 300000 UNITS PO ×2 (09:13→20:51)
[2024-11-08] MEDS: SODIUM BICARBONATE 1300 MG PO ×3 (09:14→21:11)
[2024-11-08] MEDS: OSCAL CAL 500 500 MG PO ×3 (09:14→21:11)
[2024-11-08] MEDS: FIBERCON 1250 MG PO ×2 (09:14→20:52)
[2024-11-08] MEDS: THERAGRAN 1 TABLET PO ×3 (09:14→21:11)
[2024-11-08] MEDS: Pyridium 100 MG PO ×2 (09:15→21:16)
--- NOTE | 2024-11-08 10:14 | W.PN.ID1 ---
Date of Service
Date of Service: November 08, 2024
Today's Communication
awaiting pathology
Assessment / Plan
Pseudomembraneous Colitis
Subacute Diarrhea
h/o gastric bypass with duodenal switch 2008 - baseline is 4 loose BM/day
Resolved ASHLEY on CKD
Right double-J ureteral stent
- Pseudomembranous Colitis without ulcerations - C difficile sent again and remains negative both antigen and toxin. C difficile ag and toxin also negative 11/01/24 - ruled out.
- Differential: collagenous colitis, IBD, ischemic colitis (less likely without ischemic changes at colonoscopy, pancolitis), CMV (though would expect ulcerations which were not seen, biopsy was sent, I have also sent plasma viral load), Vibrio
infection (duration is quite long and patient without exposure history, very unlikely). Stool culture negative for Salmonella.
- stool cultures negative, norovirus pcr negative 11/03, giardia/crypto negative, covid ag negative
- PICC management per hospitalist
- will follow
Chief Complaint
-: Other (diarrhea, Pseudomembraneous colitis)
Subjective / Review of Systems
afebrile
bp stable
stools now a mix of loose and liquid
no events overnight
Vital Signs / Physical Exam
Vital Signs
Vital Signs
Temp Pulse Resp BP Pulse Ox
98.8 F 68 17 124/65 97
11/08/24 07:42 11/08/24 07:42 11/08/24 07:42 11/08/24 07:42 11/08/24 07:42
Physical Exam
Constitutional: No Acute Distress
Cardiovascular: Regular Rate and S1/S2; Negative Murmur or Rub
Pulmonary: Clear and Symmetric; Negative Wheezes or Rales
Gastrointestinal: Soft, Non Tender, Distended and Normal Bowel Sounds
Skin: Warm and Dry; Negative Rash or Jaundice
Objective Data
Lab Data
Lab Results
11/08/24 06:06
11/08/24 06:06
ESR Cancelled 11/05/24 09:13
APTT Cancelled 11/05/24 14:30
Estimated Creat Clear 59 ml/min 11/08/24 06:06
Lactic Acid < 0.5 mmol/L (0.7-2.0) L 11/01/24 10:26
Total Bilirubin 0.7 mg/dl (0.2-1.3) 11/01/24 02:46
AST 25 U/L (17-59) 11/01/24 02:46
ALT 16 U/L (0-50) 11/01/24 02:46
Alkaline Phosphatase 82 U/L (38-126) 11/01/24 02:46
Most recent labs reviewed.
Micro Results:
11/06/24 13:12 C. difficile GDH Antigen & Toxins - Final
Feces/Stool Negative for toxigenic C.difficile
10/31/24 12:53 Blood Culture - Final
Blood/Venous No Growth - Final Report
10/31/24 13:07 Blood Culture - Final
Blood/Venous No Growth - Final Report
11/05/24 12:27 Cryptosporidium/Giardia - Final
Feces/Stool Negative for Cryptosporidium and/or Giardia Lamblia
antigens.
11/01/24 13:49 Salmonella/Shigella Culture - Final
Feces/Stool No Salmonella, Shigella, Aeromonas or Plesiomonas species
isolated.
Campylobacter Culture - Final
No Campylobacter species isolated.
Shiga Toxin Test - Final
No E. coli Shiga Toxin 1 or 2 detected.
Stool Leukocytes - Final
11/03/24 11:57 - Final
Feces/Stool Negative for Norovirus GI and GII.
11/01/24 02:46 MRSA Screen - Final
Nose No Methicillin Resistant Staphylococcus aureus isolated.
11/01/24 13:48 C. difficile GDH Antigen & Toxins - Final
Feces/Stool Negative for toxigenic C.difficile
--- NOTE | 2024-11-08 10:29 | W.PN.ONC2 ---
Today's Communication / Plan
-
OP hematology follow up 6-8 weeks
OP GI follow up
Impression
Impression
Colitis
Kidney stones status post removal and right ureteral stent placement
ASHLEY on CKD -Baseline CKD 3, creatinine 1.7
Pressure ulcer on buttock
History of duodenal switch for weight loss
Diverticulosis
Chronic recurrent iron deficiency
Anemia, suspect multifactorial
Right upper extremity superficial vein thrombosis, non-occlusive
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
Plan
Plan
R basilic vein thrombosis is superficial, anticoagulation not needed unless symptomatic. Warm compresses and elevation when possible.
Suspect anemia is related to inflammatory state but cannot exclude occult blood loss in patient with recurrent iron def, s/p colonoscopy, incomplete until tranverse colon due to diffuse colitis, biopsies pending
f/u Epo level, SPEP, SFLC.
Iron stores currently replete s/p IV iron 09/28.
non-invasive papillary urothelial carcinoma in ureter. Defer to Dr. Hardy regarding management.
Subjective/Objective
Subjective
no new complaints
Vital Signs:
Vital Signs
Temp Pulse Resp BP Pulse Ox
98.8 F 68 17 124/65 97
11/08/24 07:42 11/08/24 07:42 11/08/24 07:42 11/08/24 07:42 11/08/24 07:42
Lab Results:
Laboratory Data
WBC 4.0 10^3/uL (4.8-10.8) L 11/08/24 06:06
Hgb 8.5 g/dL (13.0-18.0) L 11/08/24 06:06
Plt Count 177 10^3/uL (130-400) 11/08/24 06:06
APTT Cancelled 11/05/24 14:30
eGFR > 60.00 11/08/24 06:06
Physical Exam
HEENT: No Jaundice
Cardiology: Normal Sinus Rhythm
Pulmonary: Clear
GI: Soft
Extremities: Pulses Present
--- NOTE | 2024-11-08 10:46 | CM ---
Patient seen at bedside on [facility] talking on phone. Patient indicated that he has not heard anything further on discharge planning. CM will follow for discharge planning needs.
Plan;home with physical laquita per prior assessment vs VN
[2024-11-08] MEDS: SODIUM PHOSPHATE 255 MEQ IV (13:06)
[2024-11-08] MEDS: MAGNESIUM SULFATE 100 IV (13:07)
--- NOTE | 2024-11-08 16:07 | W.PN.GI.CBS2 ---
Addendum entered and electronically signed by Daya Street MD 11/08/24 18:43:
I saw and examined the patient.
The CONGRESSIONAL ASSISTANT or PA's note was reviewed and I agree with the note.
Comment: Patient continues to complain of diarrhea, multiple times mainly during the night, denies any abdominal pain.
Await biopsies from the colonoscopy.
Infectious workup negative so far.
Okay for low residue low lactose diet.
Will follow-up
Original Note:
Today's Communication / Plan
-
as per plan
Assessment / Plan
-
Kamar is a 74yo M with h/o gastric bypass with duodenal switch 2008 and CKD who was admitted for dehydration in setting of acute diarrhea. Recently several urologic interventions and was on abx in Aug 2024. Generally baseline 4BMs per day. Now
more frequent s/p abx use. Also reports fever. Vitals reviewed. Labs reviewed Hbg down to 6.8 with iron panel suggestive of anemia of chronic disease. FOBT is negative. CTAP reviewed with pancolitis. Last Cscope was 2016
Impression
- Non bloody diarrhea and pancolitis on CT exam
Suspect infections or abx related
Other ddx includes microscopic colitis
- Fever
- CKD
- H/o gastric bypass duodenal switch 2008
- Anemia of chronic disease
- H/o diverticulosis
- BPH
- UVP stone
s/p colonoscopy 11/06/24
Incomplete until transverse colon due to diffuse colitis
- Preparation of the colon was poor.
- Pseudomembranous colitis.
- Diverticulosis in the sigmoid colon and in the
descending colon.
Impression
-Colitis noted in the entire examined colon, C. difficile negative x 2, cultures, norovirus, stool white cells all negative.
Unclear if this is infectious/inflammatory colitis, await biopsies from the colonoscopy. Also took biopsies for HSV and CMV.
Okay for low residue and low lactose diet.
Once acute episode resolves, he he will need a full colonoscopy.
Anemia, acute on chronic without any evidence of overt GI bleeding
Could be multifactorial
If CDiff continues to be negative then can restart PPI.
Will need outpatient follow-up. He did receive previous IV iron infusions.
He will need EGD and colonoscopy as outpatient.
Discussed with patient to avoid artificial sweeteners at this time.
Subjective
Subjective
Date of Service: November 08, 2024
Patient is on a low residue diet. He is eating well. He had eggs for breakfast, chicken for lunch. During the day he has a couple bowel movements however he states that once it hits change of shift and in the evening he has hourly bowel
movements. Some are semisolid and some are loose. He states this keeps him up all night. He denies any abdominal pain. He is requiring magnesium replacement via IV. We are waiting pathology from colonoscopy. All stool studies negative.
Objective
Data Reviewed
Laboratory Data:
Laboratory Results
11/08/24 06:06
11/08/24 06:06
Laboratory Results
APTT Cancelled 11/05/24 14:30
Phosphorus 1.8 mg/dl (2.5-4.5) L 11/08/24 06:06
Magnesium 1.5 mg/dl (1.6-2.3) L 11/08/24 06:06
Total Bilirubin 0.7 mg/dl (0.2-1.3) 11/01/24 02:46
AST 25 U/L (17-59) 11/01/24 02:46
ALT 16 U/L (0-50) 11/01/24 02:46
Alkaline Phosphatase 82 U/L (38-126) 11/01/24 02:46
Vital Signs and I&O:
Vital Signs
Temp Pulse Resp BP Pulse Ox
98.3 F 95 17 150/95 97
11/08/24 14:57 11/08/24 14:57 11/08/24 14:57 11/08/24 14:57 11/08/24 14:57
I&O
11/07/24 11/08/24 11/09/24
06:59 06:59 06:59
Intake Total 480 / 480 820 / 820
Output Total 2074 / 2074 2500 / 2500
Balance -1595 / -1595 -1680 / -1680
Physical Exam
Physical Exam
HEENT: Anicteric
Cardiology: Normal Sinus Rhythm
Pulmonary: Clear (anterior)
GI: Soft, Non Distended, Non Tender and Normal Bowel Sounds
Extremities: No Edema
Neuro: Non Focal
--- NOTE | 2024-11-08 16:52 | W.PN.NEPH.PH ---
Today's Communication / Plan
-
cont IVF , replace lytes
Assessment/Plan
-
impression:
Diarrhea-pancolitis on CT
acute on chronic kidney disease stage IIIB the baseline creatinine 1.7 with admitting creatinine of 2.2.
Acute metabolic acidosis=Anion gap plus a Non gap metabolic acidosis.
History of recent renal calculi calcium oxalate stones>with recent antibiotic use
History of hyper Fuad.
Acute diarrhea
acute hypocalcemia/hyponatremia
ureteral stent
plan:
ASHLEY-cr stable at 1.1, grossly nonoliguric
hypocalcemia improving
replace phos and mg
continue po yunier and vit D, calcitriol
pt reports prolia injection few weeks ago and not able to take PO yunier, vit D is likely is the reason for severe hypocalcemia on admit
met acidosis stable, cotn 1/2 NS for vol repletion
Maintain oral bicarbonate
bp stable on IVF
avoid nephrotoxins
Hgb better at 8.5, heme neg- adequate fe stores
edema improving
h/o U stent -no intervention per
s/p c scope-colitis noted, awaiting biopsy
d/w pt and
-
-
Date of Service: November 08, 2024
CC / HPI / ROS
-
Chief Complaint:
ASHLEY
History of Present Illness:
ASHLEY/Cr down to 1.1
Calcium better at 7
acidosis improved to 23
k stable at 4.1, phjos low 1.8, mg 1.5
BP stable
wt is down
Review of Systems:
no CP/SOB
diarrhea continues at nights
tolerating po
Labs
-
Labs:
WBC 4.0 10^3/uL (4.8-10.8) L 11/08/24 06:06
RBC 2.76 10^6/uL (4.70-6.10) L 11/08/24 06:06
Hgb 8.5 g/dL (13.0-18.0) L 11/08/24 06:06
Hct 26.5 % (39.0-52.0) L 11/08/24 06:06
Plt Count 177 10^3/uL (130-400) 11/08/24 06:06
Sodium 135 mmol/L (135-145) 11/08/24 06:06
Potassium 4.1 mmol/L (3.5-5.1) 11/08/24 06:06
Chloride 107 mmol/L (98-107) 11/08/24 06:06
Carbon Dioxide 23 mmol/L (22-30) 11/08/24 06:06
BUN 14 mg/dl (9-20) 11/08/24 06:06
Creatinine 1.1 mg/dL (0.7-1.3) 11/08/24 06:06
eGFR > 60.00 11/08/24 06:06
Glucose 85 mg/dl (70-99) 11/08/24 06:06
Calcium 7.0 mg/dl (8.4-10.2) L 11/08/24 06:06
Phosphorus 1.8 mg/dl (2.5-4.5) L 11/08/24 06:06
Albumin 2.7 g/dl (3.5-5.0) L 11/01/24 02:46
Physical Exam
-
Vital Signs:
Vital Signs
Temp Pulse Resp BP Pulse Ox
98.3 F 95 17 150/95 97
11/08/24 14:57 11/08/24 14:57 11/08/24 14:57 11/08/24 14:57 11/08/24 14:57
Cardiovascular:: Regular rate and rhythm
Respiratory:: Bilateral: CTA
Lung Excursion:: Normal
Abdomen:: Nontender and Soft
Extremity Edema:: +1: Bilateral:
Becerra Catheter: No
[2024-11-08] MEDS: FLOMAX 0.8 MG PO (17:19)
[2024-11-08] MEDS: ZYLOPRIM 300 MG PO (17:20)
[2024-11-08] MEDS: ASPIR LOW (ENTERIC COATED) 81 MG PO (17:20)
[2024-11-08] MEDS: LOVENOX 40 MG SC (17:20)
[2024-11-08] MEDS: 0.45%NACL IV (20:46)
[2024-11-08] MEDS: MELATONIN 10 MG PO (23:37)
[2024-11-09] VITALS (7 sets, daily range): BP systolic 122–161; BP diastolic 70–99; PULSE 83; O2SAT 97; BMI 28.2
[2024-11-09 02:51] LABS: CMV Qnt NAAT Plasma Log IU/mL Not Detected log IU/mL; CMV Quant NAAT Plasma Interp Not Detected (Not Detected); CMV Quant by NAAT Plasma IU/mL Not Detected
[2024-11-09 06:21] LABS: Hematocrit 25.5 % (39.0-52.0); Hemoglobin 8.3 g/dL (13.0-18.0); Mean Corp Hgb Conc. 32.5 g/dL (33.0-37.0); Mean Corpuscular Hgb 31.4 pg (27.0-31.0); Mean Corpuscular Volume 96.6 fL (80.0-94.0); Mean Platelet Volume 10.7 fL (7.4-10.4); Platelet Count 155 10^3/uL (130-400); Red Blood Cell Count 2.64 10^6/uL (4.70-6.10); Red Cell Dist. Width 18.7 % (11.5-14.5); White Blood Cell Count 3.4 10^3/uL (4.8-10.8)
[2024-11-09 06:50] LABS: Blood Urea Nitrogen 17 mg/dl (9-20); Calcium 6.8 mg/dl (8.4-10.2); Carbon Dioxide 23 mmol/L (22-30); Chloride 106 mmol/L (98-107); Estimated Creatinine Clearance 59 ml/min; Glucose 82 mg/dl (70-99); Magnesium 2.2 mg/dl (1.6-2.3); Phosphorus 1.8 mg/dl (2.5-4.5); Potassium 4.3 mmol/L (3.5-5.1); Sodium 132 mmol/L (135-145); eGFR > 60.00
--- NOTE | 2024-11-09 06:51 | W.PN.HOSP.TC ---
Today's Communication/Plan
-
IVF as per nephro
replete Phos Calcium
monitor and replete electrolytes as necessary
follow cultures, pathology
PT/OT
Assessment / Plan
Assessment / Plan
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
ongoing severe diarrhea since 10/20 with intermittent fevers. No abdominal pain or vomiting.
#Bandemia unclear etiology concern for infectious diarrhea
#Pancolitis on CT scanning
#Acute diarrhea
Persistent watery brown diarrhea 10/20�current total 11 days with fever on 10/21- 10/22 Tmax 102.5
Ceftin 09/21 to 09/26 post of fever cysto with stone removal and stent
WBC 6.8, bands 11%, pancolitis on CT scanning
C. difficile negative, norovirus neg, stool cultures neg to date
Diarrhea initially improved with Imodium scheduled, Questran twice daily, however since worsened
Patient's procalcitonin was 17.96 upon admission, recheck however notes significant improvement following a course of abx Zosyn
ID eval appreciated giardia/crypto COVID neg, no further abx recommended at this time.
GI eval appreciated colonoscopy performed notable for pseudomembranous colitis w/o ulcerations, cdiff repeated neg
Low residue and low lactose diet as per GI
#Dysuria
#Hx ureter stent
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
# Obstructing right UVJ stones S/p cystoscopy and stone extraction by Dr. Hardy on 09/19/2024.
#History of multiple renal stone extraction in the past
#Patient also had large volume dense clots in the ureter with difficult visualization. Stent was placed. 09/19/2024
recent Urinalysis appreciated not suggestive of UTI
Urology eval appreciated Pyridium 100 mg BID started, cont
#Right upper extremity Superficial VT
conservative mgmt, warm compress prn
therapeutic anticoagulation not indicated
#Acute on chronic anemia
Iron studies are adequate, B12/folic acid levels normal
Hemoglobin 7.3 today, minimally improved from 6.8 status post 1 unit packed red blood cells 11/03, was 8.4 admission
LDH wnl, haptoglobin pending, fibrinogen wnl
received 2PRBC over the course of hospitalization
Hematology eval appreciated
#Pancreatic cyst
Follow-up with GI in the office
#Metabolic acidosis 2/2 diarrheal losses/decreased oral intake
#ASHLEY on CKD 3B 2/2 diarrheal losses/decreased oral intake
-Hold Farxiga
-Hold eplerenone 25 mg p.o. every 48 H-patient has not taken since 10/28/2024
-Appreciate nephrology input, continue management as per nephrology
-Creatinine improved from 2.2 on admission
-Trend creatinine, no nephrotoxic drugs/NSAIDs
#Multifactorial shock, likely secondary to sepsis and hypovolemia from diarrhea
#Hx HTN�benign
-Hold eplerenone 25 mg p.o. every 48 H-patient has not taken since 10/28/2024
-Hold Farxiga
-PICC inserted, now off Levophed since 11/02
-Flomax initially held since resumed with improvement in pressures
#Severe HYPOCALCEMIA
#Vitamin D deficiency
Secondary to malabsorption and Prolia injection on 10/01
No reported muscle cramps or twitching
Improving, continue calcitriol, calcium & vitamin D supplements
Monitor and replete as necessary
#Hypophosphatemia
monitor and replete as necessary
# Hyperaldosteronism
Hold eplerenone secondary to hypotension and ASHLEY
#Hypokalemia secondary to diarrhea
Repleted and resolved
#Hyponatremia
Mild, monitor
#Stage II pressure injury on buttock, present upon admission
Continue wound care
#Chronic bilateral lower extremity edema
Ordered TEDS
# Enlarged prostate-continue Flomax
# History of gout-continue allopurinol
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
# Sleep apnea-continue CPAP
# History of cervical fusion
# Ex-smoker
PT/OT appreciated Home health
DVT prophylaxis Lovenox
Full code
Total time spent to see the patient on the floor, examine the patient, review data and lab results, discuss treatment plan with patient, nursing staff around 45 minutes.
Physical Exam
General: No acute distress
HEENT: Normocephalic, Atraumatic, EOMI, MMM
Respiratory: Clear to Auscultation bilaterally
Cardiac: Normal S1/S2, Regular Rate and Rhythm
GI: Soft, Nontender, Nondistended, Normal Bowel Sounds
Extremities: No Clubbing, Cyanosis
Bilateral lower extremity edema noted
Right upper extremity edema noted
Neuro: Awake Alert Conversant Coherent
Psych: Calm, Cooperative
Anticipated Discharge: 24 - 48 hours
Subjective/Interval History
-
Date of Service: November 09, 2024
Reports improvement in diarrhea. Overall reports feeling well.
Objective Data
-
Labs:
Laboratory Results
11/09/24
06:03
WBC 3.4 L
Hgb 8.3 L
Hct 25.5 L
Plt Count 155
Sodium 132 L
Potassium 4.3
Chloride 106
Carbon Dioxide 23
BUN 17
Creatinine 1.1
Glucose 82
Calcium 6.8 L*
Vital Signs:
Vital Signs
Temp Pulse Resp BP Pulse Ox
98 F 80 16 122/70 96
11/09/24 04:01 11/09/24 04:01 11/09/24 04:01 11/09/24 04:01 11/09/24 04:01
I&O
11/07/24 11/08/24 11/09/24
06:59 06:59 06:59
Intake Total 480 / 480 820 / 820 1320 / 1320
Output Total 2074 / 2074 2500 / 2500 1950 / 1950
Balance -1595 / -1595 -1680 / -1680 -630 / -630
[2024-11-09 07:12] LABS: Albumin 2.1 g/dl (3.5-5.0)
[2024-11-09] MEDS: CALCIUM GLUCONATE 100 IV (07:23)
--- NOTE | 2024-11-09 09:22 | W.PN.UPDATE ---
Update Note
Progress Note Update
pt stable urologically
loose stools improving
pt instructed to call my office after discharge to arrange visit for stent removal
[2024-11-09] MEDS: OSCAL CAL 500 500 MG PO ×4 (09:26→21:51)
[2024-11-09] MEDS: VISBIOME 1 CAP PO ×2 (09:26→21:51)
[2024-11-09] MEDS: SODIUM BICARBONATE 1300 MG PO ×3 (09:26→21:49)
[2024-11-09] MEDS: FIBERCON 1250 MG PO ×2 (09:26→21:49)
[2024-11-09] MEDS: THERAGRAN 1 TABLET PO ×3 (09:26→21:51)
[2024-11-09] MEDS: Pyridium 100 MG PO ×2 (09:26→21:50)
[2024-11-09] MEDS: ROCALTROL 2 MCG PO ×2 (09:29→21:49)
[2024-11-09] MEDS: DRISDOL (VITAMIN D2) 300000 UNITS PO ×2 (09:29→21:49)
[2024-11-09 10:01] LABS: % Basophils 0.6 % (0-2); % Eosinophils 1.2 % (0-6); % Immature Granulocytes 0.3 % (0-0.5); % Lymphocytes 23.4 % (20.5-51.1); % Neutrophils 63.5 % (42.2-75.2); Absolute Lymphocytes 0.8 10^3/uL (1.2-3.4); Absolute Monocytes 0.4 10^3/uL (0.1-0.6); Absolute Neutrophils 2.2 10^3/uL (1.4-6.5); Nucleated Red Blood Cells % 0 % (-)
--- NOTE | 2024-11-09 10:08 | CM ---
Patient seen at bedside. IMM completed and form placed on chart. Patient states family will transport him home and he will use a physician therapist for supports and declined VN or other supports at this time. CM will continue to follow for
discharge planning needs.
PLan; home with no needs.
--- NOTE | 2024-11-09 12:13 | W.PN.GI.CBS2 ---
Addendum entered and electronically signed by Sabina Velasco DO 11/09/24 12:45:
The patient was seen and examined by me independently in collaboration with the nurse practitioner.
Past medical history/social history/medications/allergies/family history reviewed.
Lab data and imaging data reviewed.
Agree with plans as outlined below. Diarrhea significantly improved overnight, denies any nausea, vomiting, abdominal pain. Infectious workup negative so far. Incomplete colonoscopy, concern for possible pseudomembranous colitis vs. residual
medication?biopsies still pending. Will need full colonoscopy as outpatient.
From a GI perspective, he is improving. Will arrange for office follow-up with Dr. Street upon discharge. GI will sign off, please call with questions.
Original Note:
Today's Communication / Plan
-
await path
Assessment / Plan
-
Kamar is a 74yo M with h/o gastric bypass with duodenal switch 2008 and CKD who was admitted for dehydration in setting of acute diarrhea. Recently several urologic interventions and was on abx in Aug 2024. Generally baseline 4BMs per day. Now
more frequent s/p abx use. Also reports fever. Vitals reviewed. Labs reviewed Hbg down to 6.8 with iron panel suggestive of anemia of chronic disease. FOBT is negative. CTAP reviewed with pancolitis. Last Cscope was 2016.
Colonoscopy 11/06/24
Incomplete until transverse colon due to diffuse colitis
- Preparation of the colon was poor.
- Pseudomembranous colitis.
- Diverticulosis in the sigmoid colon and in the
descending colon.
Impression/Plan:
Colitis
-noted in the entire examined colon to transverse.
-C. difficile negative x 2, cultures, norovirus, stool white cells all negative.
-Unclear if this is infectious/inflammatory colitis, await biopsies from the colonoscopy. Also took biopsies for HSV and CMV.
-Continue low residue and low lactose diet.
-Once acute episode resolves, he he will need a full colonoscopy as outpatient.
-Discussed with patient to avoid artificial sweeteners at this time.
Anemia, acute on chronic without any evidence of overt GI bleeding
-Could be multifactorial
-If CDiff continues to be negative then can restart PPI. Can wait for bx to r/o micro colitis as well.
-Will need outpatient follow-up. He did receive previous IV iron infusions.
-Hx of gastric sleeve and duodenal switch
-He will need EGD as an outpatient.
-Following up with Heme/Onc as well.
Subjective
Subjective
Date of Service: November 09, 2024
Patient states he is feeling 'much better'. He had no BM at all from yesterday afternoon until this am at 0630. That BM was liquid. He had another BM that was liquid with some 'matter'. Patient states at home his usual pattern is 4-5 a day since he
had his gastric bypass and duodenal switch surgery. He states he needs to use Benefiber a couple times a day to maintain this. Patient is on FiberCon here. Patient is eating well. No complaints. we are still awaiting pathology. Eating appropriate
foods. Discussed food choices for home if he continues to progress.
Objective
Data Reviewed
Laboratory Data:
Laboratory Results
11/09/24 06:03
11/09/24 06:03
Laboratory Results
APTT Cancelled 11/05/24 14:30
Phosphorus 1.8 mg/dl (2.5-4.5) L 11/09/24 06:03
Magnesium 2.2 mg/dl (1.6-2.3) 11/09/24 06:03
Total Bilirubin 0.7 mg/dl (0.2-1.3) 11/01/24 02:46
AST 25 U/L (17-59) 11/01/24 02:46
ALT 16 U/L (0-50) 11/01/24 02:46
Alkaline Phosphatase 82 U/L (38-126) 11/01/24 02:46
Vital Signs and I&O:
Vital Signs
Temp Pulse Resp BP Pulse Ox
98.0 F 78 17 161/90 95
11/09/24 10:54 11/09/24 10:54 11/09/24 10:54 11/09/24 10:54 11/09/24 10:54
I&O
11/08/24 11/09/24 11/10/24
06:59 06:59 06:59
Intake Total 820 / 820 1320 / 1320
Output Total 2500 / 2500 1950 / 1950
Balance -1680 / -1680 -630 / -630
Physical Exam
Physical Exam
HEENT: Anicteric
Cardiology: Normal Sinus Rhythm
Pulmonary: Clear
GI: Soft, Non Distended, Non Tender and Normal Bowel Sounds
Extremities: No Edema
Neuro: Non Focal
--- NOTE | 2024-11-09 12:24 | W.PN.ONC ---
Today's Communication / Plan
-
Anemia - Hb stable 8.3
Diarrhea improved
Impression
Impression
Colitis - diarrhea
Kidney stones status post removal and right ureteral stent placement
ASHLEY on CKD -Baseline CKD 3, creatinine 1.7
Pressure ulcer on buttock
History of duodenal switch for weight loss
Diverticulosis
Chronic recurrent iron deficiency
Anemia, suspect multifactorial
Right upper extremity superficial vein thrombosis, non-occlusive
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
Plan
Plan
1. Anemia - multifactorial - CKD, anemia of inflammation, h/o iron deficiency
-hemoglobin stable - 8.3g/dl
-follow CBC
-iron studies do not demonstrate iron deficiency
-SPEP w/o monoclonal protein - serum free light chain ratio normal
2. Diarrhea/ pancolitis - unclear etiology
s/p colonoscopy, incomplete until tranverse colon due to diffuse colitis, biopsies pending
3.Non-invasive papillary urothelial carcinoma in ureter. Defer to Dr. Hardy regarding management.
Subjective/Objective
Subjective/Objective
Patient feeling slightly better - diarrhea slowly improving - appetite better
Vital Signs:
Vital Signs
Temp Pulse Resp BP Pulse Ox
98.0 F 78 17 161/90 95
11/09/24 10:54 11/09/24 10:54 11/09/24 10:54 11/09/24 10:54 11/09/24 10:54
Lab Results:
Laboratory Data
WBC 3.4 10^3/uL (4.8-10.8) L 11/09/24 06:03
Hgb 8.3 g/dL (13.0-18.0) L 11/09/24 06:03
Plt Count 155 10^3/uL (130-400) 11/09/24 06:03
APTT Cancelled 11/05/24 14:30
eGFR > 60.00 11/09/24 06:03
Exam: Unchanged
--- NOTE | 2024-11-09 12:33 | W.PN.NEPH.PH ---
Today's Communication / Plan
-
Replete calcium
Would discontinue further IV fluid
Assessment/Plan
-
impression:
Diarrhea-pancolitis on CT
acute on chronic kidney disease stage IIIB the baseline creatinine 1.7 with admitting creatinine of 2.2.
Acute metabolic acidosis=Anion gap plus a Non gap metabolic acidosis.
History of recent renal calculi calcium oxalate stones>with recent antibiotic use
History of hyper Fuad.
Acute diarrhea
acute hypocalcemia/hyponatremia
ureteral stent
plan:
ASHLEY-cr stable at 1.1, grossly nonoliguric
hypocalcemia is worsening again, replete
replace phos and mg prn
continue po yunier and vit D, calcitriol
pt reports prolia injection few weeks ago and not able to take PO yunier, vit D is likely is the reason for severe hypocalcemia on admit
Would DC further IV fluids
Maintain oral bicarbonate
avoid nephrotoxins
Hgb better at 8.3, heme neg- adequate fe stores
edema improving
h/o U stent -no intervention per
s/p c scope-colitis noted, awaiting biopsy
d/w pt
-
-
Date of Service: November 09, 2024
CC / HPI / ROS
-
Chief Complaint:
ASHLEY
History of Present Illness:
ASHLEY/Cr down to 1.1
Calcium down to 6 point
acidosis improved to 23
k stable at 4.1, phos low 1.8, mg 2.2
BP stable
wt is down
Review of Systems:
no CP/SOB
diarrhea resolving
tolerating po
Labs
-
Labs:
WBC 3.4 10^3/uL (4.8-10.8) L 11/09/24 06:03
RBC 2.64 10^6/uL (4.70-6.10) L 11/09/24 06:03
Hgb 8.3 g/dL (13.0-18.0) L 11/09/24 06:03
Hct 25.5 % (39.0-52.0) L 11/09/24 06:03
Plt Count 155 10^3/uL (130-400) 11/09/24 06:03
Sodium 132 mmol/L (135-145) L 11/09/24 06:03
Potassium 4.3 mmol/L (3.5-5.1) 11/09/24 06:03
Chloride 106 mmol/L (98-107) 11/09/24 06:03
Carbon Dioxide 23 mmol/L (22-30) 11/09/24 06:03
BUN 17 mg/dl (9-20) 11/09/24 06:03
Creatinine 1.1 mg/dL (0.7-1.3) 11/09/24 06:03
eGFR > 60.00 11/09/24 06:03
Glucose 82 mg/dl (70-99) 11/09/24 06:03
Calcium 6.8 mg/dl (8.4-10.2) L* 11/09/24 06:03
Phosphorus 1.8 mg/dl (2.5-4.5) L 11/09/24 06:03
Albumin 2.1 g/dl (3.5-5.0) L 11/09/24 06:03
Physical Exam
-
Vital Signs:
Vital Signs
Temp Pulse Resp BP Pulse Ox
98.0 F 78 17 161/90 95
11/09/24 10:54 11/09/24 10:54 11/09/24 10:54 11/09/24 10:54 11/09/24 10:54
Cardiovascular:: Regular rate and rhythm
Respiratory:: Bilateral: CTA
Lung Excursion:: Normal
Abdomen:: Nontender and Soft
Extremity Edema:: +1: Bilateral:
Becerra Catheter: No
[2024-11-09] MEDS: SODIUM PHOSPHATE 255 MEQ IV (12:58)
[2024-11-09] MEDS: 0.45%NACL IV (13:01)
--- NOTE | 2024-11-09 13:48 | PTCARENOTE ---
patient has been tolerating sitting oob to chair, stool starting to form, appetite improving, tolerating diet, vss, will continue to monitor.
[2024-11-09] MEDS: ASPIR LOW (ENTERIC COATED) 81 MG PO (17:01)
[2024-11-09] MEDS: ZYLOPRIM 300 MG PO (17:01)
[2024-11-09] MEDS: LOVENOX 40 MG SC (17:04)
[2024-11-09] MEDS: FLOMAX 0.8 MG PO (17:04)
--- NOTE | 2024-11-09 17:35 | W.PN.ID1 ---
Date of Service
Date of Service: November 09, 2024
Today's Communication
- resolving symptoms without steroids suggests a resolving process, could be resolving antibiotic associated diarrhea
- will follow up path
- has follow up with GI scheduled, stable for dc from ID perspective
Assessment / Plan
Pseudomembraneous Colitis
Subacute Diarrhea
h/o gastric bypass with duodenal switch 2008 - baseline is 4 loose BM/day
Resolved ASHLEY on CKD
Right double-J ureteral stent
- resolving symptoms without steroids suggests a resolving process, could be resolving antibiotic associated diarrhea
- will follow up path
- has follow up with GI scheduled, stable for dc from ID perspective
Chief Complaint
-: Other (diarrhea, Pseudomembraneous colitis)
Subjective / Review of Systems
afebrile
bp stable
stools becoming formed and returning to his normal
Vital Signs / Physical Exam
Vital Signs
Vital Signs
Temp Pulse Resp BP Pulse Ox
97.9 F 83 17 122/83 97
11/09/24 15:08 11/09/24 15:08 11/09/24 15:08 11/09/24 15:08 11/09/24 15:08
Physical Exam
Constitutional: No Acute Distress
Cardiovascular: Regular Rate and S1/S2; Negative Murmur or Rub
Pulmonary: Clear
Gastrointestinal: Non Distended
Skin: Dry; Negative Rash or Jaundice
Objective Data
Lab Data
Lab Results
11/09/24 06:03
11/09/24 06:03
ESR Cancelled 11/05/24 09:13
APTT Cancelled 11/05/24 14:30
Estimated Creat Clear 59 ml/min 11/09/24 06:03
Lactic Acid < 0.5 mmol/L (0.7-2.0) L 11/01/24 10:26
Total Bilirubin 0.7 mg/dl (0.2-1.3) 11/01/24 02:46
AST 25 U/L (17-59) 11/01/24 02:46
ALT 16 U/L (0-50) 11/01/24 02:46
Alkaline Phosphatase 82 U/L (38-126) 11/01/24 02:46
Most recent labs reviewed.
Micro Results:
11/06/24 13:12 C. difficile GDH Antigen & Toxins - Final
Feces/Stool Negative for toxigenic C.difficile
10/31/24 12:53 Blood Culture - Final
Blood/Venous No Growth - Final Report
10/31/24 13:07 Blood Culture - Final
Blood/Venous No Growth - Final Report
11/05/24 12:27 Cryptosporidium/Giardia - Final
Feces/Stool Negative for Cryptosporidium and/or Giardia Lamblia
antigens.
11/01/24 13:49 Salmonella/Shigella Culture - Final
Feces/Stool No Salmonella, Shigella, Aeromonas or Plesiomonas species
isolated.
Campylobacter Culture - Final
No Campylobacter species isolated.
Shiga Toxin Test - Final
No E. coli Shiga Toxin 1 or 2 detected.
Stool Leukocytes - Final
11/03/24 11:57 - Final
Feces/Stool Negative for Norovirus GI and GII.
11/01/24 02:46 MRSA Screen - Final
Nose No Methicillin Resistant Staphylococcus aureus isolated.
11/01/24 13:48 C. difficile GDH Antigen & Toxins - Final
Feces/Stool Negative for toxigenic C.difficile
[2024-11-09] MEDS: MELATONIN 10 MG PO (21:49)
[2024-11-09 22:46] LABS: Endomysial IgA Antibody Titer <1:10 (<1:10)
[2024-11-10 03:25] VITALS: BP 130/86
[2024-11-10 05:37] LABS: Ionized Calcium 1.05 mMOL/L (1.15-1.33)
[2024-11-10 05:46] LABS: Hemoglobin 8.1 g/dL (13.0-18.0); Mean Corp Hgb Conc. 32.4 g/dL (33.0-37.0); Mean Corpuscular Hgb 31.3 pg (27.0-31.0); Mean Corpuscular Volume 96.5 fL (80.0-94.0); Mean Platelet Volume 10.7 fL (7.4-10.4); Platelet Count 151 10^3/uL (130-400); Red Blood Cell Count 2.59 10^6/uL (4.70-6.10); Red Cell Dist. Width 18.5 % (11.5-14.5); White Blood Cell Count 3.2 10^3/uL (4.8-10.8)
[2024-11-10 06:00] VITALS: BMI 28.2
[2024-11-10 06:09] LABS: Blood Urea Nitrogen 21 mg/dl (9-20); Calcium 7.1 mg/dl (8.4-10.2); Carbon Dioxide 23 mmol/L (22-30); Chloride 106 mmol/L (98-107); Estimated Creatinine Clearance 54 ml/min; Glucose 84 mg/dl (70-99); Magnesium 1.9 mg/dl (1.6-2.3); Phosphorus 1.9 mg/dl (2.5-4.5); Potassium 4.5 mmol/L (3.5-5.1); Sodium 133 mmol/L (135-145); eGFR > 60.00
--- NOTE | 2024-11-10 07:26 | W.PN.HOSP.TC ---
Today's Communication/Plan
-
replete Calcium and Phos
ok for discharge afterwards
script to be provided for repeat labwork outpt
Assessment / Plan
Assessment / Plan
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
ongoing severe diarrhea since 10/20 with intermittent fevers. No abdominal pain or vomiting.
#Bandemia unclear etiology concern for infectious diarrhea
#Pancolitis on CT scanning
#Acute diarrhea
Persistent watery brown diarrhea 10/20�current total 11 days with fever on 10/21- 10/22 Tmax 102.5
Ceftin 09/21 to 09/26 post of fever cysto with stone removal and stent
WBC 6.8, bands 11%, pancolitis on CT scanning
C. difficile negative, norovirus neg, stool cultures neg to date
Diarrhea initially improved with Imodium scheduled, Questran twice daily, however since worsened
Patient's procalcitonin was 17.96 upon admission, recheck however notes significant improvement following a course of abx Zosyn
ID eval appreciated giardia/crypto COVID neg, no further abx recommended at this time.
GI eval appreciated colonoscopy performed notable for pseudomembranous colitis w/o ulcerations, cdiff repeated neg
Low residue and low lactose diet as per GI
#Dysuria
#Hx ureter stent
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
# Obstructing right UVJ stones S/p cystoscopy and stone extraction by Dr. Hardy on 09/19/2024.
#History of multiple renal stone extraction in the past
#Patient also had large volume dense clots in the ureter with difficult visualization. Stent was placed. 09/19/2024
recent Urinalysis appreciated not suggestive of UTI
Urology eval appreciated Pyridium 100 mg BID started, cont
#Right upper extremity Superficial VT
conservative mgmt, warm compress prn
therapeutic anticoagulation not indicated
#Acute on chronic anemia
Iron studies are adequate, B12/folic acid levels normal
Hemoglobin 7.3 today, minimally improved from 6.8 status post 1 unit packed red blood cells 11/03, was 8.4 admission
LDH wnl, haptoglobin pending, fibrinogen wnl
received 2PRBC over the course of hospitalization
Hematology eval appreciated
H&H stable
#Pancreatic cyst
Follow-up with GI in the office
#Metabolic acidosis 2/2 diarrheal losses/decreased oral intake
#ASHLEY on CKD 3B 2/2 diarrheal losses/decreased oral intake
-Hold Farxiga
-Hold eplerenone 25 mg p.o. every 48 H-patient has not taken since 10/28/2024
-Appreciate nephrology input, continue management as per nephrology
-Creatinine improved from 2.2 on admission
-ASHLEY resolved
#Multifactorial shock, likely secondary to sepsis and hypovolemia from diarrhea
#Hx HTN�benign
-Hold eplerenone 25 mg p.o. every 48 H-patient has not taken since 10/28/2024
-Hold Farxiga
-PICC inserted, now off Levophed since 11/02
-Flomax initially held since resumed with improvement in pressures
#Severe HYPOCALCEMIA
#Vitamin D deficiency
Secondary to malabsorption and Prolia injection on 10/01
No reported muscle cramps or twitching
Improving, continue calcitriol, calcium & vitamin D supplements
Monitor and replete as necessary
#Hypophosphatemia
monitor and replete as necessary
# Hyperaldosteronism
Hold eplerenone secondary to hypotension and ASHLEY
#Hypokalemia secondary to diarrhea
Repleted and resolved
#Hyponatremia
Mild, monitor
#Stage II pressure injury on buttock, present upon admission
Continue wound care
#Chronic bilateral lower extremity edema
Ordered TEDS
# Enlarged prostate-continue Flomax
# History of gout-continue allopurinol
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
# Sleep apnea-continue CPAP
# History of cervical fusion
# Ex-smoker
PT/OT appreciated Home health
DVT prophylaxis Lovenox
Full code
Medically stable for discharge home with home services and outpatient follow up recommendations.
Total Time Preparing Discharge ___50____ minutes including examination of the patient, summary of the hospital stay, instructions for continuing care to all relevant caregivers; and preparation of discharge records, prescriptions, and referral
forms if necessary.
Physical Exam
General: No acute distress
HEENT: Normocephalic, Atraumatic, EOMI, MMM
Respiratory: Clear to Auscultation bilaterally
Cardiac: Normal S1/S2, Regular Rate and Rhythm
GI: Soft, Nontender, Nondistended, Normal Bowel Sounds
Extremities: No Clubbing, Cyanosis
Bilateral lower extremity edema noted
Right upper extremity edema noted
Neuro: Awake Alert Conversant Coherent
Psych: Calm, Cooperative
Anticipated Discharge: Today
Subjective/Interval History
-
Date of Service: November 10, 2024
Seen and examined at bedside in no acute distress sitting up comfortable in chair. Reports overall significant improvement in symptoms. Eager to go home. Denies new acute issues.
Objective Data
-
Labs:
Laboratory Results
11/10/24
05:30
WBC 3.2 L
Hgb 8.1 L
Hct 25.0 L
Plt Count 151
Sodium 133 L
Potassium 4.5
Chloride 106
Carbon Dioxide 23
BUN 21 H
Creatinine 1.2
Glucose 84
Calcium 7.1 L
Vital Signs:
Vital Signs
Temp Pulse Resp BP Pulse Ox
98.1 F 88 16 130/86 96
11/10/24 03:25 11/10/24 03:25 11/10/24 03:25 11/10/24 03:25 11/10/24 03:25
I&O
11/09/24 11/10/24 11/11/24
06:59 06:59 06:59
Intake Total 1320 / 1320 1215 / 1215
Output Total 1950 / 1949 975 / 975
Balance -630 / -630 240 / 240
[2024-11-10 07:28] VITALS: BP 113/58
[2024-11-10] MEDS: DRISDOL (VITAMIN D2) 300000 UNITS PO (08:38)
[2024-11-10] MEDS: ROCALTROL 2 MCG PO (08:38)
[2024-11-10] MEDS: THERAGRAN 1 TABLET PO ×2 (08:38→16:11)
[2024-11-10] MEDS: Pyridium 100 MG PO (08:39)
[2024-11-10] MEDS: FIBERCON 1250 MG PO (08:39)
[2024-11-10] MEDS: VISBIOME 1 CAP PO (08:39)
[2024-11-10] MEDS: SODIUM BICARBONATE 1300 MG PO ×2 (08:39→16:11)
[2024-11-10 10:16] VITALS: BP 102/72; PULSE 81; O2SAT 97
[2024-11-10 11:08] VITALS: BP 102/72
--- NOTE | 2024-11-10 12:33 | W.PN.NEPH.PH ---
Today's Communication / Plan
-
IV calcium
Patient can be discharged with BMP and phosphorus level this coming week
Assessment/Plan
-
impression:
Diarrhea-pancolitis on CT
acute on chronic kidney disease stage IIIB the baseline creatinine 1.7 with admitting creatinine of 2.2.
Acute metabolic acidosis=Anion gap plus a Non gap metabolic acidosis.
History of recent renal calculi calcium oxalate stones>with recent antibiotic use
History of hyper Fuad.
Acute diarrhea
acute hypocalcemia/hyponatremia
ureteral stent
plan:
ASHLEY-cr stable at 1.2, grossly nonoliguric
hypocalcemia persists
replace calcium IV: 4 gram bolus given
continue po yunier and vit D, calcitriol
pt reports prolia injection few weeks ago and not able to take PO yunier, vit D is likely is the reason for severe hypocalcemia on admit
patient can be discharged
with follow up bmp and phosphorous next week : can forward to Dr. Valle
Maintain oral bicarbonate and calcium at dischharge
-
-
Date of Service: November 10, 2024
CC / HPI / ROS
-
Chief Complaint:
ASHLEY
History of Present Illness:
ASHLEY/Cr down to 1.2
Calcium down to 7 point 1
acidosis improved to 23
k stable at 4.1, phos low 1.9, mg 2.2
BP stable
wt is down
Review of Systems:
no CP/SOB
diarrhea resolved
tolerating po
Labs
-
Labs:
WBC 3.2 10^3/uL (4.8-10.8) L 11/10/24 05:30
RBC 2.59 10^6/uL (4.70-6.10) L 11/10/24 05:30
Hgb 8.1 g/dL (13.0-18.0) L 11/10/24 05:30
Hct 25.0 % (39.0-52.0) L 11/10/24 05:30
Plt Count 151 10^3/uL (130-400) 11/10/24 05:30
Sodium 133 mmol/L (135-145) L 11/10/24 05:30
Potassium 4.5 mmol/L (3.5-5.1) 11/10/24 05:30
Chloride 106 mmol/L (98-107) 11/10/24 05:30
Carbon Dioxide 23 mmol/L (22-30) 11/10/24 05:30
BUN 21 mg/dl (9-20) H 11/10/24 05:30
Creatinine 1.2 mg/dL (0.7-1.3) 11/10/24 05:30
eGFR > 60.00 11/10/24 05:30
Glucose 84 mg/dl (70-99) 11/10/24 05:30
Calcium 7.1 mg/dl (8.4-10.2) L 11/10/24 05:30
Phosphorus 1.9 mg/dl (2.5-4.5) L 11/10/24 05:30
Albumin 2.1 g/dl (3.5-5.0) L 11/09/24 06:03
Physical Exam
-
Vital Signs:
Vital Signs
Temp Pulse Resp BP Pulse Ox
98.3 F 79 18 102/72 96
11/10/24 11:08 11/10/24 11:08 11/10/24 11:08 11/10/24 11:08 11/10/24 11:08
[2024-11-10] MEDS: CALCIUM GLUCONATE 290 MG IV (12:59)
[2024-11-10] MEDS: SODIUM PHOSPHATE 255 MEQ IV (14:20)
[2024-11-10 14:54] VITALS: BP 112/68
[2024-11-10] MEDS: OSCAL CAL 500 500 MG PO (16:11)
--- NOTE | 2024-11-10 16:46 | W.DCSUMMARY ---
Discharge Summary
Discharge Data
Date of Admission: 10/31/24
Date of Discharge: 11/10/24
-
Pending Results: Yes
Additional Pending Results:
biopsy pathology results to be followed with GI
Discharge Plan
-
Patient Disposition: Home with Home Care
Condition: Fair
Diet: Low Residue
Additional Diets: Low Lactose
Activity: As tolerated
Driving Restrictions: Not until seen by your Dr
Bathing Restrictions: None
Blood Work: Please repeat CBC BMP Phos Mag level in 2-3 days of discharge, results to be forwarded to primary care provider, Hematology, and Nephrology (script provided to facilitate)
Other Services: PT and OT
Activity Restrictions/Additional Instructions:
Please follow up with primary care provider and Urology in 1 week of discharge, keep your appointment with GI, and follow up with Hematology and Nephrology in 2-4 weeks of discharge.
Pyridium prescribed for dysuria as per Urology recommendations
Bicarb supplementation prescribed as per Nephrology Recommendations
Eplerenone has been held due to recent low pressures and ASHLEY since improved/resolved. Magnesium has been placed on hold due to diarrhea. Please follow up with primary care provider and/or other healthcare provider involved in your care before
considering to resume aforementioned medications.
Please keep a daily log of your blood pressures at home, results to be reviewed with your primary care provider
Please take medications as prescribed/recommended and follow up with primary care provider and/or other healthcare provider involved in your care for refills and/or further adjustment to your medication regimen as necessary.
Referrals:
Bret Spangler DO [Active] - in two to four weeks
Jacy Nelson CRNP [Specified Professional Personl] - 12/18/24 11:30 am
Dulce Doe MD [Active] - (4-6 wks diarrhea, needs OP colonoscopy and FU on pancreatic cyst)
Matthew Hardy Jr., MD [Active] - in one week
Ryan Gonzalez MD [Family Provider] - in one week
Prescriptions:
New
sodium bicarbonate 650 mg Tablet
1,300 mg PO TID Qty: 180 0RF
phenazopyridine 100 mg Tablet
100 mg PO BID Qty: 14 0RF
Continued
allopurinol 300 MG tablet
300 mg PO QPM
aspirin 81 mg Tablet,Delayed Release (Dr/Ec)
81 mg PO QPM
tamsulosin 0.4 mg capsule
0.4 mg PO QPM
calcitriol 0.5 mcg capsule
2 mcg PO BID
ergocalciferol (vitamin D2) 1,250 mcg (50,000 unit) capsule
7,500 mcg PO BID
Patient Comments:
high dose for absorption issues post GI surgery
coenzyme Q10 [Co Q-10] 100 mg Capsule
100 mg PO QPM
Prolia 60 mg/mL Syringe
60 mg SC [id number]
Rx Instructions:
Next dose due 09/2024
dapagliflozin propanediol [Farxiga] 10 mg tablet
10 mg PO DAILY
fluticasone propionate 50 mcg/actuation spray,suspension
1 spray INTRANASAL DAILYPRN PRN (Reason: nasal congestion)
potassium citrate 99 mg Capsule
99 mg PO MEALS
calcium carbonate 500 mg calcium (1,250 mg) Tablet
500 mg PO TID
melatonin 10 mg Tablet
10 mg PO HS
therapeutic multivitamin Tablet
1 tab PO TID
Visbiome 112.5 billion cell Capsule
1 cap PO DAILY
vitamin A palmitate 7,500 mcg (25,000 unit) Capsule
7,500 mcg PO HS
Patient Comments:
Dry Vitamin A
zinc acetate 50 mg (zinc) Capsule
50 mg PO DAILY
iron 20 mg
20 mg PO TID
Held
eplerenone [Inspra] 25 mg Tablet
25 mg PO Q48H@1999
Hold Instructions: Follow up with primary care provider and/or nephrology to determine when safe to resume, if necessary to resume, and/or if an alternative agent is required instead
magnesium 250 mg Tablet
250 mg PO DAILY
Hold Instructions: Hold for now given diarrhea. Follow up with primary care provider to determine when safe to resume, if necessary to resume, and/or if an alternative agent is required instead.
Discharge Orders:
Discharge Patient (As Directed); Ordered 11/10/24
Ordered By: Delroy Batres
Discharge Date and Time
Print Language: CROATIAN
[2024-11-10] MEDS: FLOMAX 0.8 MG PO (17:08)
[2024-11-10] MEDS: ZYLOPRIM 300 MG PO (17:09)
[2024-11-10] MEDS: LOVENOX 40 MG SC (17:09)
[2024-11-10] MEDS: ASPIR LOW (ENTERIC COATED) 81 MG PO (17:09)
[2024-11-10 19:30] VITALS: BP 114/70
--- NOTE | 2024-11-10 20:12 | PTCARENOTE ---
Pt discharged to home with . PICC line removed and discharge instructions reviewed. Transported to car via w/c and 1 staff member. All belongings intact.
== END 2024-11-10 19:56 | disposition home or self-care (01) | DRG 391 ==
LOC: 3 WEST ACU 13:37
PROVIDERS: Clinical Nurse Specialist Family Health; Family Medicine; Internal Medicine; Internal Medicine Gastroenterology; Nurse Practitioner; Nurse Practitioner Family; Radiology Diagnostic Radiology; Specialist; ADMITTING PHYSICIAN Hospitalist; ATTENDING PHYSICIAN Internal Medicine; CONSULT PHYSICIAN Internal Medicine Gastroenterology; CONSULT PHYSICIAN Internal Medicine Nephrology; EMERGENCY PHYSICIAN Emergency Medicine; FAMILY PHYSICIAN Internal Medicine; OTHER PHYSICIAN Internal Medicine Hematology & Oncology; OTHER PHYSICIAN Specialist; OTHER PHYSICIAN Student in an Organized Health Care Education/Training Program
PROC: 02HV33Z Insertion of Infusion Device into Superior Vena Cava, Percutaneous Approach (ICD-10-PCS; 2024-11-02)
PROC: 5A09357 Assistance with Respiratory Ventilation, Less than 24 Consecutive Hours, Continuous Positive Airway Pressure (ICD-10-PCS; 2024-11-02)
PROC: 30243N1 Transfusion of Nonautologous Red Blood Cells into Central Vein, Percutaneous Approach (ICD-10-PCS; 2024-11-03)
PROC: 0D9L8ZX Drainage of Transverse Colon, Via Natural or Artificial Opening Endoscopic, Diagnostic (ICD-10-PCS; 2024-11-06)
PROC: 0DBL8ZX Excision of Transverse Colon, Via Natural or Artificial Opening Endoscopic, Diagnostic (ICD-10-PCS; 2024-11-06)
DX: A09 Infectious gastroenteritis and colitis, unspecified (principal); A41.9 Sepsis, unspecified organism; R65.21 Severe sepsis with septic shock; R57.1 Hypovolemic shock; S32.049A Unspecified fracture of fourth lumbar vertebra, initial encounter for closed fracture; E87.1 Hypo-osmolality and hyponatremia; E87.21 Acute metabolic acidosis; N17.9 Acute kidney failure, unspecified; N20.2 Calculus of kidney with calculus of ureter; K90.9 Intestinal malabsorption, unspecified; K86.2 Cyst of pancreas; D62 Acute posthemorrhagic anemia; I82.611 Acute embolism and thrombosis of superficial veins of right upper extremity; N18.32 Chronic kidney disease, stage 3b; E11.22 Type 2 diabetes mellitus with diabetic chronic kidney disease; G47.33 Obstructive sleep apnea (adult) (pediatric); I12.9 Hypertensive chronic kidney disease with stage 1 through stage 4 chronic kidney disease, or unspecified chronic kidney disease; K21.9 Gastro-esophageal reflux disease without esophagitis; E26.89 Other hyperaldosteronism; D72.825 Bandemia; I95.9 Hypotension, unspecified; E87.6 Hypokalemia; E86.0 Dehydration; D63.8 Anemia in other chronic diseases classified elsewhere; K57.30 Diverticulosis of large intestine without perforation or abscess without bleeding; M47.819 Spondylosis without myelopathy or radiculopathy, site unspecified; M10.9 Gout, unspecified; E55.9 Vitamin D deficiency, unspecified; L89.302 Pressure ulcer of unspecified buttock, stage 2; E21.3 Hyperparathyroidism, unspecified; E61.1 Iron deficiency; D09.0 Carcinoma in situ of bladder; N40.0 Benign prostatic hyperplasia without lower urinary tract symptoms; Z96.611 Presence of right artificial shoulder joint; Z96.653 Presence of artificial knee joint, bilateral; Z87.442 Personal history of urinary calculi; Z87.891 Personal history of nicotine dependence; Z90.49 Acquired absence of other specified parts of digestive tract; Z98.1 Arthrodesis status; Z88.5 Allergy status to narcotic agent; Z88.6 Allergy status to analgesic agent; Z91.018 Allergy to other foods; Z11.52 Encounter for screening for COVID-19; Z98.84 Bariatric surgery status; Z86.0100 Personal history of colon polyps, unspecified
CPT/HCPCS: 88305; 71045; 71046; 74176; 80048; 80053; 81003; 81015; 82040; 82306; 82330; 82607; 82668; 82728; 82746; 82784; 83010; 83516; 83521; 83540; 83550; 83605; 83615; 83735; 83930; 83935; 84100; 84145; 84155; 84165; 84300; 85014; 85018; 85025; 85027; 85045; 85384; 85652; 85730; 86231; 86334; 86850; 86900; 86901; 86920; 87040; 87045; 87046; 87070; 87324; 87328; 87329; 87427; 87449; 87497; 87798; 87811; 88342; 89055; 93005; 93971; 96361; 96365; 96375; 97116; 97162; 97167; 97530; 97535; 99285; J2760; J7030; P9016

== ENCOUNTER 2024-11-11 14:58 | Emergency (ER) | payer MEDICARE, OTHER, SELFPAY ==
[2024-11-11 15:00] VITALS: BP 125/78
--- NOTE | 2024-11-11 15:12 | ED TECH ---
unable to draw labs in triage
--- NOTE | 2024-11-11 16:41 | ED.GENMED ---
History of Present Illness
General
Chief Complaint: Male Genito-Urinary Symptoms
Source: patient
Exam Limitations: none
Time Seen by Provider: 11/11/24 16:17
Nursing documentation reviewed up to this point in time: agreed with
History of Present Illness
History of Present Illness:
Patient discharged from the hospital yesterday after prolonged stay due to dehydration from diarrhea, presents to ED secondary to inability to urinate with bladder pressure today. However, patient does state that he has had decreased urinary output
even prior to discharge from the hospital. Denies fever or chills. Denies nausea or vomiting. Denies trauma. Of note, patient does currently have ureteral stent in place from September secondary to obstructing renal stone. Denies previous
history of urinary retention.
Past History
Past History
ED Past Medical History: GERD, HTN, NIDDM, Other (Sleep apnea) and Other (Hyperaldosteronism)
ED Past Surgical History: Appendectomy, Cholecystectomy, Orthopedic and Urological (multiple renal calculi extreactions)
Social History
Tobacco: Non-smoker
Alcohol: None
Drug: None
Personal:
Living: with family
Employment: Retired
Review of Systems
Review of Systems
Allergies reviewed?: Yes
All Other Systems: ROS reviewed and negative except as documented in HPI and ROS
Constitutional: Reports no symptoms
EENT: Reports no symptoms
ABD/GI: Reports no symptoms; Denies nausea or vomiting
: Reports difficulty voiding
Musculoskeletal: Reports no symptoms
Skin: Reports no symptoms
Neurological: Reports no symptoms
Phy Exam
Physical Exam
Physical Exam:
Physical Exam
General: no apparent distress, not acutely ill. afebrile
Head: nc/at. eomi
Neck: supple. normal range of motion
Abdomen: normal bowel sounds. not tender.
Neuro: alert and oriented x 3. no focal neurological deficits
Skin: no rash
Psychiatric: well kept. interactive and cooperative
Extremities: no edema. no calf tenderness.
Course
Orders/Labs/Results
Orders:
Orders
11/11/24 16:41
Bladder Scan- Treatment ONCE
11/11/24 17:11
Lidocaine 2% [Lidocaine Uro-Jet 2%] 1 syringe .ROUTE .STK-MED ONE
11/11/24 17:25
Straight cath- Treatment ONCE
11/11/24 17:45
US Renal Only W/O Bladder Urgent
Comment:
Reason For Exam: abdominal pain
11/11/24 18:05
Urinalysis Reflex To Culture Urgent
Date Specimen was Collected: 11/11/24
Time Specimen was Collected: 18:04
Urine Microscopic Reflex Cult Urgent
11/11/24 18:21
Basic Metabolic Panel Routine
Complete Blood Count/With Diff Routine
Abnormal Lab Results
11/11/24 11/11/24
18:05 18:21
WBC 4.6 L 10^3/uL
(4.8-10.8)
RBC 2.82 L 10^6/uL
(4.70-6.10)
Hgb 8.6 L g/dL
(13.0-18.0)
Hct 27.9 L %
(39.0-52.0)
MCV 98.9 H fL
(80.0-94.0)
MCHC 30.8 L g/dL
(33.0-37.0)
RDW 18.3 H %
(11.5-14.5)
Absolute Lymphs (auto) 0.9 L 10^3/uL
(1.2-3.4)
Immature Gran % 0.9 H %
(0-0.5)
Lymphocytes % 19.0 L %
(20.5-51.1)
Monocytes % 12.5 H %
(1.7-9.3)
Sodium 132 L mmol/L
(135-145)
BUN 24 H mg/dl
(9-20)
Creatinine 1.4 H mg/dL
(0.7-1.3)
Calcium 7.4 L mg/dl
(8.4-10.2)
Ur Occult Blood Reflex 2+ A
(Negative)
Urine RBC 26-30 A /HPF
(0-2)
Urine Bacteria (Reflex) Few A
(Negative)
11/11/24 18:21
11/11/24 18:21
Vital Signs
Initial and Last Documented VS:
Initial Vital Signs
Temp Pulse Resp BP Pulse Ox
98.2 F 82 20 125/78 96
11/11/24 15:00 11/11/24 15:00 11/11/24 15:00 11/11/24 15:00 11/11/24 15:00
Last Documented Vital Signs
Temp Pulse Resp BP Pulse Ox
98.2 F 82 20 125/78 96
11/11/24 15:00 11/11/24 15:00 11/11/24 15:00 11/11/24 15:00 11/11/24 15:00
MDM/Problems Addressed
MDM/Problems Addressed:
Patient with an unremarkable workup in ED, including blood work and renal ultrasound. In addition, patient is able to void freely on multiple occasions. Patient otherwise is afebrile, hemodynamically stable, nontoxic-appearing, at time of
discharge.
*Critical Care Note
Total Time (30-74mins, 75-104mins- exclusive of procedures): Not Applicable
ED Attending Note
-
Portions of this chart may have been created with voice recognition software.� Occasional wrong word or��sound alike� substitutions may have occurred due to the inherent limitations of voice recognition software.
Discharge Plan
Departure
Patient Disposition: Home (Routine Discharge)
Date of Disposition: 11/11/24
Time of Disposition: 19:13
Patient with high blood pressure during this ER visit?: Yes
Discharge Problem:
Urinary hesitancy
Prescriptions:
No Action
allopurinol 300 MG tablet
300 mg PO QPM
aspirin 81 mg Tablet,Delayed Release (Dr/Ec)
81 mg PO QPM
tamsulosin 0.4 mg capsule
0.4 mg PO QPM
calcitriol 0.5 mcg capsule
2 mcg PO BID
ergocalciferol (vitamin D2) 1,250 mcg (50,000 unit) capsule
7,500 mcg PO BID
Patient Comments:
high dose for absorption issues post GI surgery
coenzyme Q10 [Co Q-10] 100 mg Capsule
100 mg PO QPM
Prolia 60 mg/mL Syringe
60 mg SC [id number]
Rx Instructions:
Next dose due 09/2024
dapagliflozin propanediol [Farxiga] 10 mg tablet
10 mg PO DAILY
fluticasone propionate 50 mcg/actuation spray,suspension
1 spray INTRANASAL DAILYPRN PRN (Reason: nasal congestion)
eplerenone [Inspra] 25 mg Tablet
25 mg PO Q48H@1999
potassium citrate 99 mg Capsule
99 mg PO MEALS
calcium carbonate 500 mg calcium (1,250 mg) Tablet
500 mg PO TID
melatonin 10 mg Tablet
10 mg PO HS
therapeutic multivitamin Tablet
1 tab PO TID
Visbiome 112.5 billion cell Capsule
1 cap PO DAILY
vitamin A palmitate 7,500 mcg (25,000 unit) Capsule
7,500 mcg PO HS
Patient Comments:
Dry Vitamin A
zinc acetate 50 mg (zinc) Capsule
50 mg PO DAILY
magnesium 250 mg Tablet
250 mg PO DAILY
iron 20 mg
20 mg PO TID
sodium bicarbonate 650 mg Tablet
1,300 mg PO TID Qty: 180 0RF
phenazopyridine 100 mg Tablet
100 mg PO BID Qty: 14 0RF
Referrals:
Ryan Gonzalez MD [Family Provider] -
Activity Restrictions/Additional Instructions:
As discussed, please follow-up with your primary care physician and/or urologist with any further concerns.
Interventions
Interventions:
*Risk Screen - Suicide Last Done: 11/11/24 19:55
*General Assessment Last Done: 11/11/24 15:00
*Neglect/Abuse Screening Last Done: 11/11/24 19:55
ED- Fall Risk Assessment Last Done: 11/11/24 19:55
*ED COVID-19 Vaccine History Last Done: 11/11/24 18:45
*Nursing Disposition Last Done: 11/11/24 19:55
ED-Male Genitourinary Assessment Last Done: 11/11/24 18:46
Discharge Date and Time
Discharge Date/Time: 11/11/24 19:55
Print Language: BULGARIAN
--- NOTE | 2024-11-11 17:50 | EDRN ---
Patient states he is waiting to be straight cathed or attempt to urinate until after his ultrasound, patient states he will not have anything to drink at this time until ultrasound completed.
[2024-11-11 18:17] LABS: Urine Albumin Negative (Neg - Trace); Urine Bilirubin Negative (Negative); Urine Character Clear (Clear); Urine Color Yellow; Urine Glucose Negative (Negative); Urine Ketone Negative (Negative); Urine Leukocyte Negative (Negative); Urine Nitrite Negative (Negative); Urine Occult Blood 2+ (Negative); Urine Urobilinogen Negative (Neg - 1+)
[2024-11-11 18:32] LABS: Urine Bacteria Few (Negative); Urine Red Blood Cell 26-30 /HPF (0-2); Urine Squamous Cell 0-2 /LPF (Few); Urine White Cell 0-2 /HPF (0-5)
[2024-11-11 18:33] LABS: Hematocrit 27.9 % (39.0-52.0); Hemoglobin 8.6 g/dL (13.0-18.0); Mean Corp Hgb Conc. 30.8 g/dL (33.0-37.0); Mean Corpuscular Hgb 30.5 pg (27.0-31.0); Mean Corpuscular Volume 98.9 fL (80.0-94.0); Mean Platelet Volume 10.1 fL (7.4-10.4); Platelet Count 181 10^3/uL (130-400); Red Blood Cell Count 2.82 10^6/uL (4.70-6.10); Red Cell Dist. Width 18.3 % (11.5-14.5); White Blood Cell Count 4.6 10^3/uL (4.8-10.8)
[2024-11-11 18:42] LABS: Blood Urea Nitrogen 24 mg/dl (9-20); Calcium 7.4 mg/dl (8.4-10.2); Carbon Dioxide 24 mmol/L (22-30); Chloride 103 mmol/L (98-107); Glucose 85 mg/dl (70-99); Potassium 4.8 mmol/L (3.5-5.1); Sodium 132 mmol/L (135-145)
[2024-11-11 19:26] LABS: % Basophils 0.6 % (0-2); % Eosinophils 0.2 % (0-6); % Immature Granulocytes 0.9 % (0-0.5); % Monocytes 12.5 % (1.7-9.3); % Neutrophils 66.8 % (42.2-75.2); Absolute Lymphocytes 0.9 10^3/uL (1.2-3.4); Absolute Monocytes 0.6 10^3/uL (0.1-0.6); Absolute Neutrophils 3.1 10^3/uL (1.4-6.5); Anisocytosis 1+; Hypochromasia 2+; Macrocytosis 1+; Normal RBC Morphology No; Nucleated Red Blood Cells % 0 % (-); Target Cells 1+
[2024-11-11 19:27] LABS: Stomatocytes Occasional; Tear Drop Red Blood Cells O
== END 2024-11-11 19:55 | disposition home or self-care (01) ==
LOC: EMR 14:58
PROVIDERS: EMERGENCY PHYSICIAN Emergency Medicine; FAMILY PHYSICIAN Internal Medicine
DX: R39.11 Hesitancy of micturition (principal); K21.9 Gastro-esophageal reflux disease without esophagitis; I10 Essential (primary) hypertension; G47.30 Sleep apnea, unspecified; E11.9 Type 2 diabetes mellitus without complications; Z90.49 Acquired absence of other specified parts of digestive tract; Z87.442 Personal history of urinary calculi
CPT/HCPCS: 99284; 76775; 80048; 81003; 81015; 85025

== ENCOUNTER → 2024-11-14 12:13 | Outpatient (REF) | payer MEDICARE, OTHER, SELFPAY ==
[2024-11-14 12:56] LABS: % Basophils 0.4 % (0-2); % Eosinophils 0.1 % (0-6); % Lymphocytes 13.9 % (20.5-51.1); % Monocytes 10.2 % (1.7-9.3); % Neutrophils 74.4 % (42.2-75.2); Absolute Immature Granulocytes 0.1 10^3/uL (0-0.05); Absolute Lymphocytes 1.1 10^3/uL (1.2-3.4); Absolute Monocytes 0.8 10^3/uL (0.1-0.6); Absolute Neutrophils 5.9 10^3/uL (1.4-6.5); Hematocrit 27.3 % (39.0-52.0); Hemoglobin 8.7 g/dL (13.0-18.0); Mean Corp Hgb Conc. 31.9 g/dL (33.0-37.0); Mean Corpuscular Hgb 31.2 pg (27.0-31.0); Mean Corpuscular Volume 97.8 fL (80.0-94.0); Mean Platelet Volume 10.8 fL (7.4-10.4); Nucleated Red Blood Cells % 0 % (-); Platelet Count 232 10^3/uL (130-400); Red Blood Cell Count 2.79 10^6/uL (4.70-6.10); Red Cell Dist. Width 17.6 % (11.5-14.5); White Blood Cell Count 7.9 10^3/uL (4.8-10.8)
[2024-11-14 13:37] LABS: Blood Urea Nitrogen 24 mg/dl (9-20); Calcium 7.3 mg/dl (8.4-10.2); Carbon Dioxide 21 mmol/L (22-30); Chloride 101 mmol/L (98-107); Glucose 98 mg/dl (70-99); Magnesium 1.9 mg/dl (1.6-2.3); Phosphorus 1.5 mg/dl (2.5-4.5); Potassium 4.6 mmol/L (3.5-5.1); Sodium 131 mmol/L (135-145); eGFR 49.16
== END ==
LOC: REG 12:13
PROVIDERS: ATTENDING PHYSICIAN Internal Medicine; FAMILY PHYSICIAN Internal Medicine; REFERRING PHYSICIAN Specialist
DX: Z09 Encounter for follow-up examination after completed treatment for conditions other than malignant neoplasm (principal); M10.9 Gout, unspecified
CPT/HCPCS: 36415; 80048; 83735; 84100; 85025

== ENCOUNTER → 2024-11-28 06:44 | Outpatient (REF) | payer MEDICARE, OTHER, SELFPAY ==
[2024-11-28 07:38] LABS: Hemoglobin 9.5 g/dL (13.0-18.0)
[2024-11-28 08:02] LABS: Iron 50 ug/dl (49-181)
[2024-11-28 08:11] LABS: Percent Saturation 59 % (20-50); Total Iron Binding Capacity 84 ug/dl (261-462)
[2024-11-28 08:36] LABS: Erythrocyte Sed Rate 36 mm/hour (0-20)
[2024-11-28 09:14] LABS: Folate 11.7 ng/ml (2.76-20); Vitamin B12 > 1000 pg/ml (239-931)
[2024-11-29 22:56] LABS: Gastrin 45 pg/mL (0-100)
[2024-11-30 12:51] LABS: Chromogranin A 622 ng/mL (0-187)
== END ==
LOC: REG 06:44
PROVIDERS: ATTENDING PHYSICIAN Internal Medicine Gastroenterology; FAMILY PHYSICIAN Internal Medicine; OTHER PHYSICIAN Internal Medicine Hematology & Oncology; OTHER PHYSICIAN Specialist; REFERRING PHYSICIAN Internal Medicine Endocrinology, Diabetes & Metabolism
DX: D64.9 Anemia, unspecified (principal); Z79.899 Other long term (current) drug therapy; M10.9 Gout, unspecified
CPT/HCPCS: 36415; 82607; 82728; 82746; 82941; 83540; 83550; 84586; 85018; 85652; 86140; 86316